=== PATIENT | female | born 1950 | race Caucasian/White ===

== ENCOUNTER → 2018-05-09 06:22 | Outpatient (CLI) | payer MEDICARE, OTHER, SELFPAY ==
[2018-05-03 14:52] VITALS: BMI 31.8
--- NOTE | 2018-05-09 09:08 | STRESSREP ---
Stress Test Report Exercise myocardial perfusion stress test. 67-year-old lady with a history of chest pain. Medications Lipitor fosinopril Synthroid Toprol. Stress protocol: Resting EKG demonstrates normal sinus rhythm with a rate of 93 bpm. Resting blood pressure 132/70 mmHg. The patient exercised according to regular August protocol for total duration of 3 minutes and 30 seconds. The maximum heart rate attained was 150 bpm which was 98% maximum predicted heart rate the maximum workload was 5.2 metabolic equivalents. At rest there were no ST or T wave changes noted suggest ischemia. At peak exercise upsloping ST changes only were noted with normally the criteria for ischemia. The resting blood pressure was 132/70 with a peak blood pressure of 200/70 6 m of mercury. Myocardial perfusion protocol. 11.8 mCi of technetium 99m sestamibi was injected at rest. Patient exercised according to regular August protocol to a workload of 5.2 metastases. At peak exercise 33.3 mCi of technetium 99m sestamibi was injected stress images were obtained stress and rest images were reconstructed and compared in the short axis vertical and horizontal long axis. Gated images were also obtained next Perfusion SPECT analysis: Review of the stress images demonstrate normal uptake of tracer noted in all areas of myocardium. The resting images similarly demonstrate normal uptake of tracer noted in all areas of the myocardium. No areas of reversibility are noted suggest ischemia. Gated SPECT analysis: The gated ejection fraction is noted to be 74%. Conclusion: Normal exercise myocardial perfusion stress test at a low to moderate workload. Preserved ejection fraction.
== END ==
PROVIDERS: Family Provider Nurse Practitioner Family; PCP Nurse Practitioner Family; Referring Provider Physician Assistant Medical; Visit Provider Physician Assistant Medical
DX: I10 Essential (primary) hypertension (principal); E78.5 Hyperlipidemia, unspecified; I47.1 Supraventricular tachycardia; R07.9 Chest pain, unspecified
CPT/HCPCS: 78452; 93017; A9500; A4216

== ENCOUNTER 2018-10-05 20:10 | Inpatient (IN) | payer MEDICARE, OTHER, SELFPAY ==
[2018-06-21 14:11] VITALS: BMI 31.8
[2018-10-05 20:12] VITALS: BP 121/69; PULSE 102; RESP 18; TEMP 36.4; O2SAT 93; BMI 30.9
--- NOTE | 2018-10-05 20:56 | CT_ITS ---
STUDY: CT ABDOMEN AND PELVIS WITHOUT CONTRAST REASON FOR EXAM: Female, 68 years old. Upper quadrant pain radiating to the back and nausea. RADIATION DOSAGE (If Supplied By Facility): CTDIvol = ( 17.88 ) mGy, DLP = ( 821.85 ) mGycm TECHNIQUE: Transaxial images were obtained from the dome of the diaphragm to the symphysis pubis without oral contrast, and without intravenous contrast. Sagittal and coronal images were reconstructed. Individualized dose optimization techniques were used for this CT. COMPARISON: Prior abdomen and pelvic CT exam of November 27, 2016 FINDINGS: The visualized lung bases are unremarkable. The visualized portions of the heart are within normal limits. Normal liver. Normal gallbladder and extrahepatic biliary system. Normal spleen. Normal pancreas. Normal right adrenal gland. Stable 2.0 x 1.5 cm nodule of the left adrenal gland. Normal right kidney. Normal left kidney. Food filled stomach. Dilated mid small bowel with nondistended distal small bowel. The transition point appears to be in the left mid to lower abdomen where multiple dilated loops of bowel are gathered together with an emerging nondistended distal small bowel loop along its lower edge. The colon is nondistended. There is non-visualization of the appendix. There is diffuse atherosclerotic calcification of the abdominal aorta, without a demonstrated aneurysm. Normal inferior vena cava. Normal retroperitoneum. Normal urinary bladder. Negative for pelvic mass or free fluid of the pelvis. Small fatty umbilical hernia. There are diffuse degenerative changes of the visualized lumbar spine with a chronic bilateral pars interarticularis defect and a grade [address]/Abdomen/Pelvis without Cont IMPRESSION: Findings suggest a mid small bowel obstruction in the left mid abdomen where multiple dilated loops are gathered together with an emerging nondistended distal small bowel loop representing the transition zone. Most likely secondary to adhesions. Negative for evidence of gross wall thickening, perforation or ascites. Negative for intra-abdominal abscess. Unremarkable colon. Nonvisualized appendix. Normal kidneys bilaterally without hydronephrosis or stones. Unremarkable urinary bladder. Unremarkable liver, spleen, pancreas and gallbladder. Stable left adrenal nodule. Minimal fatty umbilical hernia. Degenerative changes of the spine with a chronic bilateral pars interarticularis defect and a grade 1 spondylolisthesis at L5. N.B. : Akiko Abdullahi/[phone], confirmed on 10/05/2018 21:50:47 (ET) that the referring physician received the results and does not require a verbal communication. Electronically Signed: Brynn Scott MD at 21:50 EDT , Service support ,
--- NOTE | 2018-10-05 20:56 | EKG12_ITS ---
Test Reason : ABDOMINAL PAIN Blood Pressure : / mmHG Vent. Rate : 092 BPM Atrial Rate : 092 BPM P-R Int : 194 ms QRS Dur : 078 ms QT Int : 368 ms P-R-T Axes : 020 028 030 degrees QTc Int : 455 ms Normal sinus rhythm Septal infarct , age undetermined Abnormal ECG Confirmed by ZACK CAMACHO, GISSELL ([id number]), restaurant expeditor RACHELL ESTEBAN ([id number]) on 10/09/2018 2:18:56 PM Referred By: PATTI Confirmed By:GISSELL DIXON MD
[2018-10-05] MEDS: 0.9% Normal Saline 1,000 ML 150 ML IV (21:18)
[2018-10-05 21:34] LABS: Absolute Lymphocyte Count 1.95 X10^3/ul (0.83-4.51); Basophil# 0.02 X10^3/uL; Basophil% 0.1 % (0-1); Eosinophil# 0.11 X10^3/uL; Eosinophils% 0.6 % (0-5); Hematocrit 44.6 % (37-47); Hemoglobin 14.3 g/dl (12.0-15.0); Lymphocyte # 1.95 X10^3/ul (4.0); Lymphocyte % 11.2 % (19-41); Mean Corp Hgb Conc 32.1 g/gl (32-36); Mean Corpuscular Hgb 26.7 pg (27.0-32.0); Mean Corpuscular Volume 83.4 fL (81-99); Mean Platelet Vol. 9.2 fl (6.2-12.0); Monocyte# 1.29 X10^3/uL; Monocyte% 7.4 % (0-10); Neutrophil # 14.04 X10^3/uL (2.7-7.7); Neutrophil % 80.3 % (47-70); POSITIVE COUNT NO; POSITIVE DIFFERENTIAL NO; POSITIVE MORPHOLOGY NO; Platelet Count 378 K/mm3 (150-450); RBC Distribution Width CV 13.6 % (11.6-14.6); RBC Distribution Width SD 40.8 fl (35.1-43.9); Red Blood Count 5.35 M/mm3 (4.2-5.4); White Blood Count 17.5 K/mm3 (4.4-11.0)
[2018-10-05 21:45] LABS: Color, Urine Yellow (Yellow); Glucose, Dipstick Normal (Normal); Ketone-Dipstick 5 mg/dl (Negative); Leukocyte Esterase-Dipstick 100 /ul (Negative); Nitrite-Dipstick Negative (Negative); Occult Blood-Urine Negative /ul (Negative); Protein-Dipstick 100 mg/dl (Negative); Specific Gravity, Urine 1.025 (1.002-1.030); Urine Clarity Sl. Cloudy (Clear); Urine Urobilinogen 1 mg/dl (Normal)
[2018-10-05 21:52] LABS: Urine Bilirubin Dipstick 1 mg/dL (Negative)
[2018-10-05 21:54] LABS: White Blood Cells 5-10 SEEN /hpf (0-5)
[2018-10-05 21:55] LABS: Bacteria 2+ /hpf (None Seen); Fine Granular Cast- Urine 0-5 SEEN /lpf (0-5); Hyaline Cast 0-5 SEEN /lpf (0-5); Mucous, Urine 4+ /hpf (<or=2+); Red Blood Cells-Urine 0-5 SEEN /hpf (0-5); Squamous Epithelial Cells - UA 5-10 SEEN /hpf (5-10)
[2018-10-05 21:57] LABS: ALB/GLOB Ratio 0.9 RATIO (0.9-2.4); AST(SGOT) 17 U/L (15-37); Alanine Aminotransfer ALT/SGPT 30 U/L (13-56); Albumin, Serum 3.6 g/dL (3.2-5.0); Alkaline Phosphatase 86 U/L (45-117); Anion Gap 8 (5-15); BUN 14 mg/dL (7-18); BUN/Creat Ratio 18.3 RATIO (10-20); Calcium,Total 8.8 mg/dL (8.5-10.1); Chloride 105 mmol/L (98-107); Creatinine, Serum 0.77 mg/dL (0.55-1.02); EST Glomerular Filtration Rate 80 mL/min (>60); Est Glom Filt Rate - Afr Amer 96 mL/min (>60); Estimated Creatinine Clearance 44.54 ml/min; Globulin 3.9 g/dL (2.2-4.2); Glucose 81 mg/dL (74-106); Lipase 63 U/L (73-393); Potassium 3.9 mmol/L (3.5-5.1); Protein, Total 7.5 g/dL (6.4-8.2); Sodium Level 140 mmol/L (136-145)
[2018-10-05 21:59] LABS: Lactic Acid 1.9 mmol/L (0.4-2.0)
--- NOTE | 2018-10-05 22:25 | ED.VISSUMM ---
- ER Visit Summary Date of Service: 10/05/18 Chief Complaint: [Abdominal pain ] History of Present Illness: The patient is a 68 F [resents to the emergency department with abdominal pain started 4 5 hours ago. Patient describes intermittent pain that is last a few seconds at a time. She had nausea but no vomiting. She denies any chest pain or shortness of breath. Patient did have some sweats associated with it. Patient states that she did eat a lot of cabbage last night. Patient states that the pain is tender diffusely across her abdomen and at times feels it into her back. She has had no diarrhea. Is any blood in her stool or black tarry stools. She denies any fevers.] Physical Examination: [HEENT-PERRLA, EOMI. Cranial nerves II through XII grossly intact. TMs clear. Mucous membranes moist. No adenopathy. Cardiovascular-regular rate and rhythm without murmur or ectopy Lungs-clear to auscultation, chest wall stable without crepitus or subcu emphysema Abdomen-normoactive bowel sounds, soft. Patient has diffuse tenderness to palpation. There is no rebound, rigidity, or perineal signs. Extremities-intact ?4, normal range of motion, normal pulses, atraumatic] Test Results: [CBC with differential shows a white count 17.5, hemoglobin 14, hematocrit 45, platelets 378. Chemistries unremarkable. LFTs were normal. Lipase was 63. Urinalysis was unremarkable. Troponin is less than 0.015. EKG obtained on arrival shows sinus rhythm with a ventricular rate of 92 bpm with an old septal infarct noted. CT scan of the abdomen pelvis showed a small bowel obstruction in the mid to left lower abdomen.] Emergency Department Course and Treatment: [Patient given Zofran for nausea. Patient case will be discussed with surgeon on-call and hospitalist evaluate for admission.] Treatment Plan: [Admit] Disposition: [Admit] Impression: [Small bowel obstruction] This note was generated with [email or web address] dictation software. It may contain incorrect words, spelling, and punctuation that were not noted in review of the chart prior to signing ED Disposition - Plan for ED Patient: Referrals: Peggy Reyes, KEYANNAC [Primary Care Provider] -
[2018-10-05] MEDS: Morphine 4 MG/ML Syringe IV (22:50)
[2018-10-05] MEDS: Ondansetron 4 MG/2 ML Vial IV (22:50)
[2018-10-05 22:51] VITALS: BP 155/74; PULSE 95; RESP 18; TEMP 37.2; O2SAT 96
--- NOTE | 2018-10-05 23:09 | PCM.PN.HOSP ---
Patient Problems: Active and Suspected Problems (Last Reviewed 06/21/18 @ 14:22 by Elder Whalen MD) SBO (small bowel obstruction) (Acute) Subjective: Consult for medical management: 68-year-old female with past medical history of paroxysmal atrial tachycardia status post AV node ablation 2008, hypertension, type II DM, aortic stenosis who has episodes of diarrhea alternating with constipation. Patient had constipation for the last 3 days and had diarrhea today. She comes in with sudden abdominal pain that started 5 hours ago. Pain is described as intermittent, in the epigastric and right upper quadrant and radiates sometimes to her back. She denied any fever or chills. No nausea. Pain is severe. She has history of hysterectomy about 20 years ago and has history of bowel obstruction that resolved in the past. Vitals/I&O's: Vital Signs Temp Pulse Resp BP Pulse Ox 98.9 F 95 18 155/74 H 96 10/05/18 22:51 10/05/18 22:51 10/05/18 22:51 10/05/18 22:51 10/05/18 22:51 Oxygen Delivery Method Room Air Weight: 79.3 kg Body Mass Index (BMI) 30.9 Finger Stick Blood Glucose 63 General: Alert, Oriented x3, Cooperative, - - in pain HEENT: Atraumatic, PERRLA, EOMI, Normocephalic Oral: Moist Mucosa Neck: Supple Lungs: Clear to auscultation, Normal air movement Cardiovascular: Regular rate, Regular Rhythm, Normal S1, Normal S2, No murmurs Abdomen: Bowel Sounds Present, Soft, Non-Distended, No Hepato-splenomegaly, Tender - over the upper part of the abdomen, BS present and hyperactive Extremities: No edema Skin: No rashes, No breakdown Musculoskeletal: No Tenderness to Palpation of Joints or Extremities Lymphatic: No Cervical, Supraclavicular, or Inguinal Adenopathy Neurological: Cranial nerves II-XII grossly intact, Neuro grossly intact Psych/Mental Status: Normal Affect, Appropriate Laboratory Results 10/05/18 21:10: WBC 17.5 H, RBC 5.35, Hgb 14.3, Hct 44.6, MCV 83.4, MCH 26.7 L, MCHC 32.1, RDW 13.6, RDW Differential 40.8, Plt Count 378, MPV 9.2, Immature Gran % (Auto) 0.400, Neut % (Auto) 80.3 H, Lymph % (Auto) 11.2 L, [place] % (Auto) 7.4, Eos % (Auto) 0.6, Baso % (Auto) 0.1, Absolute Neuts (auto) 14.0 H, Absolute Lymphs (auto) 1.95, Total Counted Not Reportable 10/05/18 21:10: Sodium 140, Potassium 3.9, Chloride 105, Carbon Dioxide 27.0, Anion Gap 8, BUN 14, Creatinine 0.77, Estim Creat Clear Calc 44.54, Est GFR (MDRD) Af Amer 96, Est GFR (MDRD) Non-Af 80, BUN/Creatinine Ratio 18.3, Glucose 81, Calcium 8.8, Total Bilirubin 0.20, AST 17, ALT 30, Alkaline Phosphatase 86, Troponin I < 0.015, Total Protein 7.5, Albumin 3.6, Globulin 3.9, Albumin/Globulin Ratio 0.9, Lipase 63 L 10/05/18 21:10: Lactic Acid 1.9 10/05/18 21:15: Urine Color Yellow, Urine Clarity Sl. Cloudy, Urine pH 5.0, Ur Specific [place] 1.025, Urine Protein 100 H, Urine Glucose (UA) Normal, Urine Ketones 5 H, Urine Occult Blood Negative, Urine Nitrite Negative, Urine Bilirubin 1 H, Urine Urobilinogen 1 H, Ur Leukocyte Esterase 100 H, Urine RBC 0-5 SEEN, Urine WBC 5-10 SEEN, Ur Squamous Epith Cells 5-10 SEEN, Urine Bacteria 2+, Hyaline Casts 0-5 SEEN, Fine Granular Casts 0-5 SEEN, Urine Mucus 4+ Current Medications Sodium Chloride () 1,000 mls @ 150 mls/hr IV .[id number] JER Last Admin: 10/05/18 21:18 Dose: 150 mls/hr Documented by: Medical Necessity - Tobacco Use Smoking Status: Never smoker Assessment/Plan All Active Problems (Last Reviewed 06/21/18 @ 14:22 by Elder Whalen MD) SBO (small bowel obstruction) (Acute) 1. Abdominal pain, nausea, likely secondary to small bowel obstruction, normal LFTs Patient admitted by general surgery, kept n.p.o., on IV fluids, work-up for possible cholecystitis in the works. 2. Hypertension, on amlodipine and metoprolol, will add holding parameters and add hydralazine as needed 3. Hyperlipidemia, on statin 4. Type II DM, complicated by neuropathy, on insulin, Metformin, gabapentin, home regimen on hold on account of n.p.o. status Will continue with Accu-Cheks every 6 with insulin sliding scale 5. H/o Paroxysmal atrial tachycardia, rate controlled now, continue on metoprolol, keep on telemetry 6. DVT PPx- Heparin SC Code Visit Inpatient E&M: 47793 Init Hosp L3
--- NOTE | 2018-10-05 23:20 | HP.PCM_ITS ---
Problem List (1) SBO (small bowel obstruction) Status: Acute History of Present Illness Date of Admission: 10/05/18 The patient is a 68 year old F who reports a day history of upper abdominal pain and nausea. Patient reports she had a bowel movement this morning. She has had a bowel obstruction in the past which resolved spontaneously. She says the pain is in her epigastric region and right upper quadrant and radiates to the back. She denies any fevers or chills. She says she does not remember passing any flatus in the evening or late afternoon. She has not vomited. 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) Antihyperlipidemic Palpitations (Chronic) History of cardiac radiofrequency ablation (Chronic) RFA @ [facility] March 2008 Hypothyroidism (Chronic) Atrial tachycardia (Chronic) Diabetes mellitus, type II (Chronic) HLD (hyperlipidemia) (Chronic) HTN (hypertension) (Chronic) Medical History: Medical History (Last Reviewed 06/21/18 @ 14:22 by Elder Whalen MD) Paroxysmal atrial tachycardia (Chronic) I47.1 detention use of drug (Chronic) Z79.899 Antihyperlipidemic Palpitations (Chronic) R00.2 Hypothyroidism (Chronic) E03.9 Atrial tachycardia (Chronic) I47.1 Diabetes mellitus, type II (Chronic) E11.9 HLD (hyperlipidemia) (Chronic) E78.5 HTN (hypertension) (Chronic) I10 Chest pain R07.9 Dyspnea on exertion R06.09 SBO (small bowel obstruction) K56.609 Diabetic neuropathy E11.40 Allergies Sulfa (Sulfonamide Antibiotics) Adverse Reaction (Verified 10/05/18 20:11) Upset Stomach Home Medications: Ambulatory Orders Medication Instructions Recorded Atorvastatin Calcium [Lipitor] 20 mg PO QHS 11/26/16 Fosinopril Sodium 20 mg PO DAILY 11/26/16 Gabapentin [Neurontin] 300 mg PO TID 11/26/16 Metoprolol(XL)Succ [Toprol Xl 50 mg PO DAILY 11/26/16 (Beta Andrés)] Amlodipine [Norvasc] 2.5 mg PO DAILY #30 tab 11/29/16 pantoprazole 40 mg tablet,delayed 40 mg PO QDAY 06/20/17 release venlafaxine ER 75 mg 75 mg PO DAILY cap 06/22/17 capsule,extended release 24 hr insulin aspart (U-100) 100 unit/mL 18 unit SC QAC ml 05/03/18 (3 mL) subcutaneous pen insulin detemir (U-100) 100 30 unit SC BID ml 05/03/18 unit/mL (3 mL) subcutaneous pen metformin 1,000 mg tablet 1,000 mg PO BID 05/03/18 Levothyroxine Sodium [Tirosint] 88 mcg PO DAILY 10/05/18 Surgical History: Surgical History (Last Reviewed 06/21/18 @ 14:22 by Elder Whalen MD) History of cardiac radiofrequency ablation (Chronic) Z98.890 RFA @ [facility] March 2008 History of hand surgery Z98.890 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 Denies: Chills, Fever HEENT: Denies: Difficulty Swallowing Cardiovascular: Denies: Chest Pain Respiratory: Denies: Cough, Shortness of Breath Gastrointestinal: Reports: Abdominal Pain, Nausea. Denies: Hematemesis, Hematochezia, Melena, Vomiting Genitourinary: Denies: Retention Musculoskeletal: Denies: Joint Tenderness Skin: Denies: Jaundice Psychiatric: Denies: Anxiety Hematologic/ Lymphatic: Denies: Anemia VTE Information - Inpt Only VTE Present on Admission: No VTE Mechan Device Prophylaxis: SCD's Patient Problems: Active and Suspected Problems (Last Reviewed 06/21/18 @ 14:22 by Elder Whalen MD) SBO (small bowel obstruction) (Acute) - Physical Exam General: Alert, Oriented x3, Cooperative, No apparent distress HEENT: Atraumatic Neck: No JVD Lungs: Normal air movement Cardiovascular: Regular rate, Regular Rhythm Abdomen: Soft, Distended, Tender - Tender in the epigastric region Skin: No rashes Musculoskeletal: No Tenderness to Palpation of Joints or Extremities Neurological: Cranial nerves II-XII grossly intact Psych/Mental Status: Normal Affect Vital Signs Temp Pulse Resp BP Pulse Ox 98.9 F 95 18 155/74 H 96 10/05/18 22:51 10/05/18 22:51 10/05/18 22:51 10/05/18 22:51 10/05/18 22:51 Oxygen Delivery Method Room Air Weight: 174 lb 13.225 oz Body Mass Index (BMI) 30.9 Finger Stick Blood Glucose 63 Laboratory Tests Past 24 Hrs 10/05/18 10/05/18 10/05/18 21:10 21:10 21:10 WBC 17.5 H RBC 5.35 Hgb 14.3 Hct 44.6 MCV 83.4 MCH 26.7 L MCHC 32.1 RDW 13.6 RDW Differential 40.8 Plt Count 378 MPV 9.2 Immature Gran % (Auto) 0.400 Neut % (Auto) 80.3 H Lymph % (Auto) 11.2 L [place] % (Auto) 7.4 Eos % (Auto) 0.6 Baso % (Auto) 0.1 Absolute Neuts (auto) 14.0 H Absolute Lymphs (auto) 1.95 Total Counted Not Reportable Sodium 140 Potassium 3.9 Chloride 105 Carbon Dioxide 27.0 Anion Gap 8 BUN 14 Creatinine 0.77 Estim Creat Clear Calc 44.54 Est GFR (MDRD) Af Amer 96 Est GFR (MDRD) Non-Af 80 BUN/Creatinine Ratio 18.3 Glucose 81 Lactic Acid 1.9 Calcium 8.8 Total Bilirubin 0.20 AST 17 ALT 30 Alkaline Phosphatase 86 Troponin I < 0.015 Total Protein 7.5 Albumin 3.6 Globulin 3.9 Albumin/Globulin Ratio 0.9 Lipase 63 L Urine Color Urine Clarity Urine pH Ur Specific [place] Urine Protein Urine Glucose (UA) Urine Ketones Urine Occult Blood Urine Nitrite Urine Bilirubin Urine Urobilinogen Ur Leukocyte Esterase Urine RBC Urine WBC Ur Squamous Epith Cells Urine Bacteria Hyaline Casts Fine Granular Casts Urine Mucus 10/05/18 21:15 WBC RBC Hgb Hct MCV MCH MCHC RDW RDW Differential Plt Count MPV Immature Gran % (Auto) Neut % (Auto) Lymph % (Auto) [place] % (Auto) Eos % (Auto) Baso % (Auto) Absolute Neuts (auto) Absolute Lymphs (auto) Total Counted Sodium Potassium Chloride Carbon Dioxide Anion Gap BUN Creatinine Estim Creat Clear Calc Est GFR (MDRD) Af Amer Est GFR (MDRD) Non-Af BUN/Creatinine Ratio Glucose Lactic Acid Calcium Total Bilirubin AST ALT Alkaline Phosphatase Troponin I Total Protein Albumin Globulin Albumin/Globulin Ratio Lipase Urine Color Yellow Urine Clarity Sl. Cloudy Urine pH 5.0 Ur Specific [place] 1.025 Urine Protein 100 H Urine Glucose (UA) Normal Urine Ketones 5 H Urine Occult Blood Negative Urine Nitrite Negative Urine Bilirubin 1 H Urine Urobilinogen 1 H Ur Leukocyte Esterase 100 H Urine RBC 0-5 SEEN Urine WBC 5-10 SEEN Ur Squamous Epith Cells 5-10 SEEN Urine Bacteria 2+ Hyaline Casts 0-5 SEEN Fine Granular Casts 0-5 SEEN Urine Mucus 4+ Clinical Impression(s) from Imaging Studies Abdomen/Pelvis CT 10/05/18 20:56 IMPRESSION: Findings suggest a mid small bowel obstruction in the left mid abdomen where multiple dilated loops are gathered together with an emerging nondistended distal small bowel loop representing the transition zone. Most likely secondary to adhesions. Negative for evidence of gross wall thickening, perforation or ascites. Negative for intra-abdominal abscess. Unremarkable colon. Nonvisualized appendix. Normal kidneys bilaterally without hydronephrosis or stones. Unremarkable urinary bladder. Unremarkable liver, spleen, pancreas and gallbladder. Stable left adrenal nodule. Minimal fatty umbilical hernia. Degenerative changes of the spine with a chronic bilateral pars interarticularis defect and a grade 1 spondylolisthesis at L5. N.B. : Akiko Abdullahi/[phone], confirmed on 10/05/2018 21:50:47 (ET) that the referring physician received the results and does not require a verbal communication. Electronically Signed: Brynn Scott MD at 21:50 EDT , Service support , ADDENDUM: 10/05/18 0794 IMPRESSION: Findings suggest a mid small bowel obstruction in the left mid abdomen where multiple dilated loops are gathered together with an emerging nondistended distal small bowel loop representing the transition zone. Most likely secondary to adhesions. Negative for evidence of gross wall thickening, perforation or ascites. Negative for intra-abdominal abscess. Unremarkable colon. Nonvisualized appendix. Normal kidneys bilaterally without hydronephrosis or stones. Unremarkable urinary bladder. Unremarkable liver, spleen, pancreas and gallbladder. Stable left adrenal nodule. Minimal fatty umbilical hernia. Degenerative changes of the spine with a chronic bilateral pars interarticularis defect and a grade 1 spondylolisthesis at L5. N.B. : The above information has been verbally conveyed by Brynn Scott MD to Akiko Abdullahi MD, on 10/05/2018 22:04:02 (ET). Electronically Signed: Brynn Scott MD at 21:50 EDT , Service support , Assessment/Plan All Active Problems (Last Reviewed 06/21/18 @ 14:22 by Elder Whalen MD) SBO (small bowel obstruction) (Acute) 68-year-old female with ileus versus bowel obstruction 1. The patient describes epigastric pain and pain radiating around to the back in the right upper quadrant. On CT scan she does have dilated proximal small bowel but there is definitely stool in the colon and gas in the distal small bowel. It is possible this is an ileus instead of a small bowel obstruction. Her pain is in the right upper quadrant radiating to the back this may be an ileus due to cholecystitis and I will order an ultrasound to check the gallbladder. If the ultrasound the gallbladder is normal and her white count stays elevated I will order a small bowel follow-through in the morning. Currently her abdomen is soft and she has mild tenderness and there is no sign of acute abdomen. 2. I have admitted the patient to the floor and start a sliding scale. I will keep her n.p.o. and on IV fluids. Recheck labs in the morning. Zeyad Zacarias MD Pager: [facility] [address] [place] [address], [address] [place] [address] Office:
[2018-10-05 23:25] VITALS: BP 140/81; PULSE 86; RESP 16; TEMP 37.1; O2SAT 93
[2018-10-05 23:27] VITALS: BMI 30.4; BMI 30.5
[2018-10-06] VITALS (9 sets, daily range): BP systolic 119–140; BP diastolic 50–75; PULSE 79–100; RESP 14–16; TEMP 36.7–36.8; O2SAT 94–96
[2018-10-06] MEDS: 0.9% Normal Saline 1,000 ML 125 ML IV ×3 (00:27→15:31)
[2018-10-06 00:45] LABS: Bedside Glucose 134 mg/dL (70-110)
--- NOTE | 2018-10-06 05:55 | RAD_ITS ---
STUDY: X-RAY - ABDOMEN/PELVIS REASON FOR EXAM: Female, 68 years old. Small bowel obstruction TECHNIQUE: Two AP supine views of the abdomen and pelvis. COMPARISON: None. FINDINGS: Normal visualized lung bases. Multiple mildly dilated small bowel loops are seen throughout the abdomen are stable since the previous study may represent an ileus. There is no demonstrated free abdominal air. The visualized liver, spleen and kidneys are grossly normal in size and morphology. Normal soft tissue structures. Normal visualized osseous structures. RAD/Abdomen Single View (Portable) IMPRESSION: Stable mildly dilated small bowel loops throughout the abdomen may represent an ileus. Electronically Signed: Shana Lin, at 8:14 EDT Tel , Service support ,
[2018-10-06] MEDS: Insulin Lispro 100 UNIT/ML INSULN.PEN SC (06:06)
[2018-10-06] MEDS: Heparin Injection (Vial) 5,000 UNIT/ML VIAL 5000 UNIT SC ×2 (06:07→14:01)
[2018-10-06 07:00] LABS: Bedside Glucose 207 mg/dL (70-110)
[2018-10-06 07:10] LABS: Absolute Neutrophil Count 9.9 X10^3/uL (2.0-7.7); Basophil# 0.03 X10^3/uL; Basophil% 0.2 % (0-1); Eosinophil# 0.23 X10^3/uL; Eosinophils% 1.6 % (0-5); Hematocrit 40.5 % (37-47); Hemoglobin 12.9 g/dl (12.0-15.0); Lymphocyte % 17.7 % (19-41); Mean Corp Hgb Conc 31.9 g/gl (32-36); Mean Corpuscular Hgb 26.2 pg (27.0-32.0); Mean Corpuscular Volume 82.3 fL (81-99); Mean Platelet Vol. 9.6 fl (6.2-12.0); Monocyte# 1.36 X10^3/uL; Monocyte% 9.6 % (0-10); Neutrophil # 9.91 X10^3/uL (2.7-7.7); Neutrophil % 70.4 % (47-70); Platelet Count 354 K/mm3 (150-450); RBC Distribution Width CV 13.8 % (11.6-14.6); RBC Distribution Width SD 40.4 fl (35.1-43.9); Red Blood Count 4.92 M/mm3 (4.2-5.4); White Blood Count 14.1 K/mm3 (4.4-11.0)
[2018-10-06 07:12] LABS: POSITIVE COUNT NO; POSITIVE DIFFERENTIAL NO; POSITIVE MORPHOLOGY NO
[2018-10-06 07:28] LABS: AST(SGOT) 15 U/L (15-37); Alanine Aminotransfer ALT/SGPT 28 U/L (13-56); Albumin, Serum 3.1 g/dL (3.2-5.0); Alkaline Phosphatase 73 U/L (45-117); Anion Gap 7 (5-15); BUN 13 mg/dL (7-18); BUN/Creat Ratio 19.2 RATIO (10-20); Calcium,Total 8.1 mg/dL (8.5-10.1); Chloride 106 mmol/L (98-107); Creatinine, Serum 0.68 mg/dL (0.55-1.02); EST Glomerular Filtration Rate 92 mL/min (>60); Est Glom Filt Rate - Afr Amer 111 mL/min (>60); Estimated Creatinine Clearance 44.54 ml/min; Globulin 3.1 g/dL (2.2-4.2); Glucose 213 mg/dL (74-106); Magnesium 1.6 mg/dL (1.6-2.6); Phosphorus 3.9 mg/dL (2.5-4.9); Potassium 4.1 mmol/L (3.5-5.1); Protein, Total 6.2 g/dL (6.4-8.2); Sodium Level 139 mmol/L (136-145)
--- NOTE | 2018-10-06 07:43 | US_ITS ---
STUDY: ABDOMINAL ULTRASOUND - RIGHT UPPER QUADRANT REASON FOR VISIT: Female, 68 years old. Right upper quadrant pain. TECHNIQUE: Ultrasound evaluation of the right upper quadrant was performed with real-time and static mc-scale imaging. TECHNICAL QUALITY: Adequate. COMPARISON: None. FINDINGS: Liver: The liver measures 17 cm. There is increased echogenicity consistent with fatty infiltration. The bile ducts are within normal limits. There is hepatic color flow. The direction of portal flow is hepatopetal. There is no demonstrated mass lesion. Gallbladder: Normal distended gallbladder. The gallbladder wall measures 2.8 mm. There is a negative sonographic King's sign. There is no pericholecystic fluid. There are no gallstones. Common Bile Duct (C.B.D.): The common bile duct measures 4.5 mm. Pancreas: The pancreas is suboptimally visualized. There is normal echogenicity of the pancreas. There is no demonstrated pancreatic mass or cyst. Right Kidney: Normal size of the right kidney. The right kidney measures 10.4 x 5.9 x 5.1 cm. Normal renal cortex. The right cortex measures 1.5 cm. There is no demonstrated renal mass or cyst. There is no right hydronephrosis. US/Gallbladder IMPRESSION: 1. Fatty infiltration of the liver. 2. No evidence of gallstones. Electronically Signed: Femi Carter MD at 8:54 EDT Tel , Service support ,
--- NOTE | 2018-10-06 07:53 | NURSING ---
pt transported to ultrasound via bed at this time
--- NOTE | 2018-10-06 08:34 | PN.SURG_ITS ---
Patient Problems: Active and Suspected Problems (Last Reviewed 06/21/18 @ 14:22 by Elder Whalen MD) SBO (small bowel obstruction) (Acute) Subjective: The patient reports that her abdominal pain is much improved this morning. She also had a bowel movement and she said she is passing flatus this morning. She is not having any nausea or vomiting this morning. - Physical Exam General: Alert, Oriented x3 Neck: No JVD Lungs: Normal air movement Cardiovascular: Regular rate Abdomen: Soft, Non Tender Vital Signs Temp Pulse Resp BP Pulse Ox 98.2 F 89 16 135/75 H 94 10/06/18 05:52 10/06/18 05:52 10/06/18 05:52 10/06/18 05:52 10/06/18 05:52 Oxygen Delivery Method Room Air Weight: 172 lb 2.896 oz Body Mass Index (BMI) 30.4 Finger Stick Blood Glucose 63 Intake and Output for Last 24 Hours 10/04/18 10/05/18 10/06/18 23:59 23:59 23:59 Intake Total 862 / 862 Output Total 200 / 200 Balance 662 / 662 Laboratory Tests Past 24 Hrs 10/05/18 10/05/18 10/05/18 21:10 21:10 21:10 WBC 17.5 H RBC 5.35 Hgb 14.3 Hct 44.6 MCV 83.4 MCH 26.7 L MCHC 32.1 RDW 13.6 RDW Differential 40.8 Plt Count 378 MPV 9.2 Immature Gran % (Auto) 0.400 Neut % (Auto) 80.3 H Lymph % (Auto) 11.2 L Pierce % (Auto) 7.4 Eos % (Auto) 0.6 Baso % (Auto) 0.1 Absolute Neuts (auto) 14.0 H Absolute Lymphs (auto) 1.95 Total Counted Not Reportable Sodium 140 Potassium 3.9 Chloride 105 Carbon Dioxide 27.0 Anion Gap 8 BUN 14 Creatinine 0.77 Estim Creat Clear Calc 44.54 Est GFR (MDRD) Af Amer 96 Est GFR (MDRD) Non-Af 80 BUN/Creatinine Ratio 18.3 Glucose 81 Lactic Acid 1.9 Calcium 8.8 Phosphorus Magnesium Total Bilirubin 0.20 AST 17 ALT 30 Alkaline Phosphatase 86 Troponin I < 0.015 Total Protein 7.5 Albumin 3.6 Globulin 3.9 Albumin/Globulin Ratio 0.9 Lipase 63 L Urine Color Urine Clarity Urine pH Ur Specific [place] Urine Protein Urine Glucose (UA) Urine Ketones Urine Occult Blood Urine Nitrite Urine Bilirubin Urine Urobilinogen Ur Leukocyte Esterase Urine RBC Urine WBC Ur Squamous Epith Cells Urine Bacteria Hyaline Casts Fine Granular Casts Urine Mucus 10/05/18 10/06/18 10/06/18 21:15 06:20 06:20 WBC 14.1 H RBC 4.92 Hgb 12.9 Hct 40.5 MCV 82.3 MCH 26.2 L MCHC 31.9 L RDW 13.8 RDW Differential 40.4 Plt Count 354 MPV 9.6 Immature Gran % (Auto) 0.500 Neut % (Auto) 70.4 H Lymph % (Auto) 17.7 L Pierce % (Auto) 9.6 Eos % (Auto) 1.6 Baso % (Auto) 0.2 Absolute Neuts (auto) 9.9 H Absolute Lymphs (auto) 2.50 Total Counted Not Reportable Sodium 139 Potassium 4.1 Chloride 106 Carbon Dioxide 26.0 Anion Gap 7 BUN 13 Creatinine 0.68 Estim Creat Clear Calc 44.54 Est GFR (MDRD) Af Amer 111 Est GFR (MDRD) Non-Af 92 BUN/Creatinine Ratio 19.2 Glucose 213 H Lactic Acid Calcium 8.1 L Phosphorus 3.9 Magnesium 1.6 Total Bilirubin 0.40 AST 15 ALT 28 Alkaline Phosphatase 73 Troponin I Total Protein 6.2 L Albumin 3.1 L Globulin 3.1 Albumin/Globulin Ratio 1.0 Lipase Urine Color Yellow Urine Clarity Sl. Cloudy Urine pH 5.0 Ur Specific [place] 1.025 Urine Protein 100 H Urine Glucose (UA) Normal Urine Ketones 5 H Urine Occult Blood Negative Urine Nitrite Negative Urine Bilirubin 1 H Urine Urobilinogen 1 H Ur Leukocyte Esterase 100 H Urine RBC 0-5 SEEN Urine WBC 5-10 SEEN Ur Squamous Epith Cells 5-10 SEEN Urine Bacteria 2+ Hyaline Casts 0-5 SEEN Fine Granular Casts 0-5 SEEN Urine Mucus 4+ POC Glucose 10/06/18 10/06/18 05:59 00:36 POC Glucose 207 H 134 H Medical Necessity - Tobacco Use Smoking Status: Never smoker Assessment/Plan All Active Problems (Last Reviewed 06/21/18 @ 14:22 by Elder Whalen MD) SBO (small bowel obstruction) (Acute) 68-year-old female with ileus versus partial small bowel obstruction 1. Patient's white blood cell count decreased this morning despite not being on antibiotics. She is also feeling much better and having no abdominal pain or nausea or vomiting and she is passing flatus. I am getting an ultrasound of the gallbladder to make sure that she does not have acute cholecystitis and if this is negative she will be started on clear liquid diet. I will put her back on her normal insulin regimen for her diabetes. 2. Patient's diet may be advanced as tolerated and if she is tolerating a diet I may discharge her home tomorrow. Zeyad Zacarias MD Pager: [facility] [address] [place] [address], [address] [place] [address] Office:
[2018-10-06] MEDS: Metoprolol(XL)Succ 50 MG Tablet PO (09:38)
[2018-10-06] MEDS: amLODIPine 2.5 MG Tablet PO (09:38)
[2018-10-06] MEDS: Venlafaxine XR 75 MG Capsule PO (09:38)
[2018-10-06] MEDS: Pantoprazole Sodium 40 MG Tablet PO (09:40)
--- NOTE | 2018-10-06 11:12 | CM.UR ---
Alerted Dr. Bhat to UA findings during rounding. Quinn Eugene RN, CCM.
[2018-10-06] MEDS: Insulin Lispro 100 UNIT/ML INSULN.PEN 18 UNIT SC ×2 (11:57→17:44)
[2018-10-06 12:16] LABS: Bedside Glucose 190 mg/dL (70-110)
--- NOTE | 2018-10-06 13:01 | CM.UR ---
RN CM Assessment Introduced role of RN CM to patient.? Patient is alert and able?to participate in RN CM Assessment. ?Care providers, pharmacy, and demographics verified. arrived part way through [facility]. Presentation: abd pain Admit Dx: SBO Re-Admit: No Barriers/Issues: None PCP: KAYLEY Reyes at [facility] Preferred Pharmacy: [facility] Insurance: [employer], [employer]. Rx Benefit: Yes. No trouble pay for meds. LNOK: , Omar Acuña LW/HPOA: None. Accepted booklet. Declines additional information at this time/visit from . Living Arrangements:? Lives in 2 story home. Denies access issues. ADL?s: Independent with all ADLS. Transportation: Drives self or retired will drive. DME: None DME co: None HHC: None SNF: None Goal: Home. DC PLAN: Home no needs anticipated. Quinn Eugene RN, CCM.
[2018-10-06] MEDS: Gabapentin 300 MG Capsule PO (14:02)
--- NOTE | 2018-10-06 15:59 | PN_ITS ---
Patient Problems: Active and Suspected Problems (Last Reviewed 06/21/18 @ 14:22 by Elder Whalen MD) SBO (small bowel obstruction) (Acute) Subjective: Patient was seen and examined today, she does complain of some nausea, her blood sugar this morning was 213. I talked briefly with Dr. Zacarias about her care. - Physical Exam General: Alert, Oriented x3, Cooperative, No apparent distress, Well developed HEENT: Atraumatic, PERRLA, EOMI, Normocephalic Oral: Moist Mucosa Neck: Supple, Trachea Midline, Thyroid Normal Size and Texture Lungs: Clear to auscultation, Normal air movement, No rhonchi, No wheeze, No rales, Diminished, Rales Cardiovascular: Regular rate, Regular Rhythm, Normal S1, Normal S2, No murmurs, No Ectopic Activity, PMI Normal, No rub noted, No Gallop Abdomen: Bowel Sounds Present, Soft, Non Tender, Non-Distended, No hernias noted Extremities: No clubbing, No cyanosis, No edema, Capillary Refill Less than 3 Seconds Skin: No rashes, No breakdown Musculoskeletal: No Tenderness to Palpation of Joints or Extremities Neurological: Cranial nerves II-XII grossly intact, Neuro grossly intact, Sensory exam intact to light touch and pain, Coordination normal Psych/Mental Status: Normal Affect, Appropriate, Alert and oriented to time, place, person, mood and affect Vital Signs Temp Pulse Resp BP Pulse Ox 98.1 F 89 16 132/63 H 95 10/06/18 15:30 10/06/18 15:30 10/06/18 15:30 10/06/18 15:30 10/06/18 15:30 Oxygen Delivery Method Room Air Weight: 78.1 kg Body Mass Index (BMI) 30.4 Finger Stick Blood Glucose 63 Intake and Output for Last 24 Hours 10/04/18 10/05/18 10/06/18 23:59 23:59 23:59 Intake Total 1485 / 1485 Output Total 300 / 300 Balance 1185 / 1185 Laboratory Tests Past 24 Hrs 10/05/18 10/05/18 10/05/18 21:10 21:10 21:10 WBC 17.5 H RBC 5.35 Hgb 14.3 Hct 44.6 MCV 83.4 MCH 26.7 L MCHC 32.1 RDW 13.6 RDW Differential 40.8 Plt Count 378 MPV 9.2 Immature Gran % (Auto) 0.400 Neut % (Auto) 80.3 H Lymph % (Auto) 11.2 L [place] % (Auto) 7.4 Eos % (Auto) 0.6 Baso % (Auto) 0.1 Absolute Neuts (auto) 14.0 H Absolute Lymphs (auto) 1.95 Total Counted Not Reportable Sodium 140 Potassium 3.9 Chloride 105 Carbon Dioxide 27.0 Anion Gap 8 BUN 14 Creatinine 0.77 Estim Creat Clear Calc 44.54 Est GFR (MDRD) Af Amer 96 Est GFR (MDRD) Non-Af 80 BUN/Creatinine Ratio 18.3 Glucose 81 Lactic Acid 1.9 Calcium 8.8 Phosphorus Magnesium Total Bilirubin 0.20 AST 17 ALT 30 Alkaline Phosphatase 86 Troponin I < 0.015 Total Protein 7.5 Albumin 3.6 Globulin 3.9 Albumin/Globulin Ratio 0.9 Lipase 63 L Urine Color Urine Clarity Urine pH Ur Specific [place] Urine Protein Urine Glucose (UA) Urine Ketones Urine Occult Blood Urine Nitrite Urine Bilirubin Urine Urobilinogen Ur Leukocyte Esterase Urine RBC Urine WBC Ur Squamous Epith Cells Urine Bacteria Hyaline Casts Fine Granular Casts Urine Mucus 10/05/18 10/06/18 10/06/18 21:15 06:20 06:20 WBC 14.1 H RBC 4.92 Hgb 12.9 Hct 40.5 MCV 82.3 MCH 26.2 L MCHC 31.9 L RDW 13.8 RDW Differential 40.4 Plt Count 354 MPV 9.6 Immature Gran % (Auto) 0.500 Neut % (Auto) 70.4 H Lymph % (Auto) 17.7 L [place] % (Auto) 9.6 Eos % (Auto) 1.6 Baso % (Auto) 0.2 Absolute Neuts (auto) 9.9 H Absolute Lymphs (auto) 2.50 Total Counted Not Reportable Sodium 139 Potassium 4.1 Chloride 106 Carbon Dioxide 26.0 Anion Gap 7 BUN 13 Creatinine 0.68 Estim Creat Clear Calc 44.54 Est GFR (MDRD) Af Amer 111 Est GFR (MDRD) Non-Af 92 BUN/Creatinine Ratio 19.2 Glucose 213 H Lactic Acid Calcium 8.1 L Phosphorus 3.9 Magnesium 1.6 Total Bilirubin 0.40 AST 15 ALT 28 Alkaline Phosphatase 73 Troponin I Total Protein 6.2 L Albumin 3.1 L Globulin 3.1 Albumin/Globulin Ratio 1.0 Lipase Urine Color Yellow Urine Clarity Sl. Cloudy Urine pH 5.0 Ur Specific Rebecca 1.025 Urine Protein 100 H Urine Glucose (UA) Normal Urine Ketones 5 H Urine Occult Blood Negative Urine Nitrite Negative Urine Bilirubin 1 H Urine Urobilinogen 1 H Ur Leukocyte Esterase 100 H Urine RBC 0-5 SEEN Urine WBC 5-10 SEEN Ur Squamous Epith Cells 5-10 SEEN Urine Bacteria 2+ Hyaline Casts 0-5 SEEN Fine Granular Casts 0-5 SEEN Urine Mucus 4+ POC Glucose 10/06/18 10/06/18 10/06/18 11:55 05:59 00:36 POC Glucose 190 H 207 H 134 H Medical Necessity - Tobacco Use Smoking Status: Never smoker Assessment/Plan All Active Problems (Last Reviewed 06/21/18 @ 14:22 by Elder Whalen MD) SBO (small bowel obstruction) (Acute) #1 type 2 diabetes-continue Accu-Cheks with sliding scale insulin, patient is back on her home insulin regimen. #2 hypertension-patient is currently taking oral medications #3 hyperlipidemia #4 partial small bowel obstruction-resolving Ultrasound of the gallbladder revealed no stones today Code Visit Inpatient E&M: 87002 Subs Hosp L2
[2018-10-06 17:25] LABS: Bedside Glucose 265 mg/dL (70-110)
--- NOTE | 2018-10-06 17:27 | PCM.PN.BLA ---
Progress Note Patient having no abdominal pain and she is passing flatus and had another BM. Patient requesting to go home. she is tolerating regular diet with no nausea or vomitting. OK to discharge, follow back up if any issues. Zeyad Zacarias
--- NOTE | 2018-10-06 17:28 | DCINST_ITS ---
- Discharge Diagnoses Current Active Problems: Current Active and Chronic Problems (Last Reviewed 06/21/18 @ 14:22 by Elder Whalen MD) SBO (small bowel obstruction) (Acute) You will use the following diet at home:: Regular Your food should be the consistency of: Regular Your liquids should be the consistency of: Regular/Thin Discharge Activity: Return to Normal Activity Call your doctor if your incision/area has: Increased Pain/ Swelling Call your doctor if you observe: Fever of 101 or Higher, Inability to have a bowel movement, Uncontrolled pain Allergies/Adverse Reactions: Allergies Sulfa (Sulfonamide Antibiotics) Adverse Reaction (Verified 10/05/18 20:11) Upset Stomach Medications to take at Discharge Atorvastatin Calcium [Lipitor] 20 mg PO QHS 11/26/16 Fosinopril Sodium 20 mg PO DAILY 11/26/16 Gabapentin [Neurontin] 300 mg PO TID 11/26/16 Metoprolol(XL)Succ [Toprol Xl (Beta Andrés)] 50 mg PO DAILY 11/26/16 Amlodipine [Norvasc] 2.5 mg PO DAILY #30 tab 11/29/16 pantoprazole 40 mg tablet,delayed release 40 mg PO QDAY 06/20/17 venlafaxine ER 75 mg capsule,extended release 24 hr 150 mg PO DAILY cap 06/22/17 insulin aspart (U-100) 100 unit/mL (3 mL) subcutaneous pen 18 unit SC QAC ml 05/03/18 insulin detemir (U-100) 100 unit/mL (3 mL) subcutaneous pen 30 unit SC BID ml 05/03/18 metformin 1,000 mg tablet 1,000 mg PO BID 05/03/18 Levothyroxine Sodium [Tirosint] 88 mcg PO DAILY 10/05/18 Primary Care Physician: Peggy Reyes NP-C [Primary Care Provider] - Test Results: Test results from this visit will be discussed in further detail at your follow- up appointment, if applicable. Please Follow Up With: Zeyad Zacarias MD When: as needed
== END 2018-10-06 18:58 | disposition home or self-care (01) | DRG 389 ==
LOC: ED 21:12 → MS3 23:03
PROVIDERS: Admitting Provider Surgery; Emergency Provider Emergency Medicine; Family Provider Nurse Practitioner Family; PCP Nurse Practitioner Family; Visit Provider Internal Medicine
DX: K56.600 Partial intestinal obstruction, unspecified as to cause (principal); I47.1 Supraventricular tachycardia; I10 Essential (primary) hypertension; E78.5 Hyperlipidemia, unspecified; E11.40 Type 2 diabetes mellitus with diabetic neuropathy, unspecified; Z90.710 Acquired absence of both cervix and uterus; Z79.4 Long term (current) use of insulin
CPT/HCPCS: 36415; 74018; 74176; 76705; 80053; 81001; 82962; 83605; 83690; 83735; 84100; 84484; 85025; 93005; 97802; 99285; J7030; A4216; J2405

== ENCOUNTER 2020-02-10 08:29 | Day surgery (SDC) | payer MEDICARE, OTHER, SELFPAY ==
[2020-01-30 14:51] VITALS: BMI 33.1
[2020-01-31 13:04] LABS: Absolute Lymphocyte Count 3.08 X10^3/uL (0.83-4.51); Basophil# 0.05 X10^3/uL; Basophil% 0.5 % (0-1); Eosinophil# 0.27 X10^3/uL; Eosinophils% 2.6 % (0-5); Hematocrit 44.9 % (37-47); Hemoglobin 13.8 g/dL (12.0-15.0); Lymphocyte # 3.08 X10^3/ul (4.0); Lymphocyte % 29.8 % (19-41); Mean Corp Hgb Conc 30.7 g/dL (32-36); Mean Corpuscular Hgb 26.6 pg (27.0-32.0); Mean Corpuscular Volume 86.5 fL (81-99); Mean Platelet Vol. 9.8 fl (6.2-12.0); Monocyte# 0.81 X10^3/uL; Monocyte% 7.8 % (0-10); NRBC Flagged by Analyzer 0 % (0-5); Neutrophil # 6.04 X10^3/uL (2.7-7.7); Neutrophil % 58.6 % (47-70); Platelet Count 365 K/mm3 (150-450); RBC Distribution Width SD 44.1 fl (35.1-43.9); Red Blood Count 5.19 M/mm3 (4.2-5.4); White Blood Count 10.3 K/mm3 (4.4-11.0)
[2020-01-31 13:16] LABS: Anion Gap 6 (5-15); BUN 13 mg/dL (7-18); BUN/Creat Ratio 19.7 RATIO (10-20); Chloride 105 mmol/L (98-107); Creatinine, Serum 0.66 mg/dL (0.55-1.02); EST Glomerular Filtration Rate 94 mL/min (>60); Est Glom Filt Rate - Afr Amer 114 mL/min (>60); Glucose 274 mg/dL (74-106); Potassium 4.5 mmol/L (3.5-5.1); Sodium Level 138 mmol/L (136-145)
--- NOTE | 2020-01-31 14:50 | RAD_ITS ---
STUDY: X-RAY CHEST REASON FOR EXAM: Female, 69 years old. BEFORE HEART CATH -- HISTORY OF HYPERTENSION TECHNIQUE: PA and lateral views of the chest. COMPARISON: None. FINDINGS: The lungs are clear and expanded. There is no demonstrated pleural abnormality. Normal size heart. Normal mediastinum and yasmin. Normal visualized pulmonary arteries. Normal visualized aortic arch and descending thoracic aorta. Normal visualized thoracic spine. Normal visualized ribs, clavicles, and shoulders. There is no demonstrated abnormality of the visualized soft tissue structures of the upper abdomen. RAD/Chest PA and Lateral IMPRESSION: Normal x-ray examination of the chest. Electronically Signed: Omar Brady MD at 12:27 EST Tel , Service support ,
[2020-02-01 12:15] VITALS: BMI 31.6
[2020-02-07 08:14] VITALS: BMI 33.1
--- NOTE | 2020-02-10 07:35 | HP_ITS ---
[facility] HPI History of Present Illness Details: JOSIANE OSULLIVAN, is a 69 F who presents to the office today for a follow-up visit. She has a history of paroxysmal atrial tachycardia status post AV ty ablation in 2008. She had a dual AV ty pathway. She has a history of hypertension and diabetes and aortic sclerosis. You do remember she underwent stress testing in April of 2018 because she has been having some chest discomfort. Though she exercised to a low metabolic workload no evidence of ischemia was noted. She tells me that she has had some discomfort in her chest when she gets up and moves after sitting a while. She did undergo an echocardiogram at [facility] the results of which are not immediately available but she was told that her aortic stenosis is getting worse. She has had no dizziness or diaphoresis no near syncope or syncope. She does however have some fatigue. Her blood pressure is elevated. Physical exam demonstrates clear lung duncan regular rate and rhythm 2/6 systolic murmur noted at sternal border no pedal edema. Intake Vital Signs 01/30/20 Height 5 ft 3 in 01/30/20 Weight: 187 lb 01/30/20 BMI 33.1 01/30/20 BP 161/75 H 01/30/20 Respiration 18 01/30/20 Pulse 100 01/30/20 Pulse Oximetry (%) 94 Intake Visit Reasons: 1 year f/u COVID Resched Allergies Sulfa (Sulfonamide Antibiotics) Adverse Reaction (Verified 01/30/20 14:51) Upset Stomach Medications Gabapentin [Neurontin] 300 mg PO TID 11/26/16 [History Confirmed 01/30/20] venlafaxine 75 mg capsule,extended release 24 hr 150 mg PO DAILY cap 06/22/17 [History Confirmed 01/30/20] fosinopril 20 mg tablet 20 mg PO DAILY #10 tab 09/03/19 [Rx Confirmed 01/30/20] insulin aspart U-100 100 unit/mL (3 mL) subcutaneous pen 25 unit SC QAC ml 09/03/19 [History Confirmed 01/30/20] insulin detemir U-100 100 unit/mL (3 mL) subcutaneous pen 50 unit SC DAILY ml 09/03/19 [History Confirmed 01/30/20] metoprolol succinate 50 mg tablet,extended release 24 hr 50 mg PO DAILY #10 tab 09/03/19 [Rx Confirmed 01/30/20] amlodipine 5 mg tablet 5 mg PO DAILY #90 tab 01/30/20 [Rx Confirmed 01/30/20] atorvastatin 40 mg tablet 40 mg PO QHS tab 01/30/20 [History Confirmed 01/30/20] levothyroxine 88 mcg tablet 88 mcg PO DAILY tab 01/30/20 [History Confirmed 01/30/20] Ejection fraction %: 65 to 70 PFSH Medical History Nonrheumatic aortic (valve) stenosis (Chronic) Paroxysmal atrial tachycardia (Chronic) Essential (primary) hypertension (Chronic) HLD (hyperlipidemia) (Chronic) Diabetes mellitus, type II (Chronic) Diabetic neuropathy (Chronic) Hypothyroidism (Chronic) Chest pain (Resolved) Dyspnea on exertion (Resolved) SBO (small bowel obstruction) (Resolved) Surgical History History of cardiac radiofrequency ablation (Chronic 03/2008) History of hand surgery (Resolved) History of total hysterectomy (Resolved) Family History Mother Diabetes Father Diabetes Social History (Updated 01/30/20 @ 15:[address] Elder Whalen MD) Smoking Status: Never smoker how long ago did patient quit smokin years alcohol intake: never details: rare caffeine: No ROS Const Const: Negative for fatigue, weakness, headache(s), frequent falls, difficulty sleeping or excessive sweating Eyes Eyes: Negative for loss of peripheral vision, transient loss of vision, blurry vision, double vision or tunnel vision ENT ENT: Negative for headache(s), dizziness, Nosebleed/epistaxis or balance problems Cardio Chest Pain: Yes Character: tightness, squeezing Location: mid sternal Duration: minutes Exacerbation: activity Relieving: rest Palpitations: No Edema: None Muscle aches with walking: None Resp Respiratory: Positive for SOB with activity; negative for SOB at rest, SOB orthopnea\SOB lying down, Cough or paroxysmal nocturnal dyspnea GI GI: Negative nausea, vomiting, heartburn or black,tarry stools : Negative for hematuria Musc Musc: Negative for muscle aches/ myalgia, muscle weakness, joint pain or balance problems Skin Skin: Negative non-healing lesions, rash or unusual bruising Neuro Neuro: Negative for dizziness, lightheadedness, near syncope, syncope, orthostatic symptoms, frequent falls, headache(s), weakness, blurry vision, double vision or lack of coordination Kirk Hematologic/Lymphatic: Negative for easy bleeding or easy bruising Endo Endo: Negative for fatigue, excessive sweating or increased thirst/drinking Psych Psych: Negative for anxiety or depression Allergy Allergy/Immunology: Negative for hives, Negative for rash Cardiology Exam Const Appearance: cooperative, healthy appearing, no acute distress, well developed and well groomed Nutritional Appearance: average body habitus and well nourished Orientation: alert, awake and oriented x3 Head Head: normal to inspection, normocephalic and atraumatic Ears: hearing grossly normal bilaterally and external ears normal Nose: external nose normal, nares normal, nasal mucous membranes and turbinates normal, septum normal, no nasal discharge Face and Sinus: face symmetric Mouth: oral mucosae normal, tongue normal, oropharynx normal and moist mucous membranes Teeth and gingiva: dentition normal Throat: posterior oropharynx normal, tonsils normal and uvula midline Eyes General: appearance normal, both eyes and all related structures Eyelids: eyelids normal Conjunctivae: conjunctivae normal Pupils: PERRL, normal by confrontation and accommodation normal EOM: EOM intact bilaterally Neck Neck: normal visual inspection, trachea midline and no JVD JVD: +5 Carotids: normal carotid upstroke and bounding pulses Chest Chest inspection: normal inspection of the chest, symmetric chest movement and normal respiratory effort Auscultation: Bilateral: Clear to Auscultation Cardio Palpation: normal PMI Rate: regular rate Rhythm: regular rhythm Heart sounds: S1 normal, S2 normal and normal, physiologic split S2; negative rub, gallop or murmur Murmur: Grade 2/6, harsh and early systolic GI GI: normal to inspection, soft, no hepatosplenomegaly and bowel sounds present Neuro General: alert, awake, oriented x3, gait normal, moves all extremities and no focal sensory deficit Skin Skin: no rashes or lesions noted Extremities Pulses: Normal: Right Femoral Pulse, Left Femoral Pulse, Right Dorsalis Pedis Pulse, Left Dorsalis Pedis Pulse, Right Posterior Tibial Pulse, Left Posterior Tibial Pulse, Right Radial Pulse, Left Radial Pulse Lower Extremity Edema: None: Bilateral Musculoskel Musculoskeletal: No joint tenderness Psych Psychological: normal affect Assessment & Plan 1. Exertional chest pain R07.9 Plan She does have some exertional chest discomfort etiology of which is not entirely clear. This could be secondary to her worsening aortic valve disease or it could be from [place] coronary disease. Her stress test as you remember was a low metabolic workload. I would not repeat this but I would suggest that we perform a left heart catheterization. The risk benefits alternatives have been explained to her she understands and agrees to proceed. Depending on the findings further recommendations will be made. Orders Orders: 12 Lead EKG performed by [facility] Today Echo Transesophageal ([facility]) Today Basic Metabolic Profile (BMP) Today Chest PA and Lateral Today 2. Nonrheumatic aortic (valve) stenosis I35.0 Plan She does have a history of valvular heart disease with aortic stenosis. She appears to have clinically at least moderate aortic stenosis. My recommendation would be for us to consider a transesophageal echocardiogram to further characterize the aortic valve, obtain the results of the echocardiogram from [facility] and then further recommendations made. Orders Orders: 12 Lead EKG performed by [facility] Today Left Heart Cath/COR/LV Percut Today Echo Transesophageal ([facility]) Today Basic Metabolic Profile (BMP) Today CBC W/Diff, Automated Today 3. Essential (primary) hypertension I10 Plan She does have a history of hypertension. Her blood pressure does not appear to be very well controlled I would suggest that we increase amlodipine to 5 mg a day and continue her other current medications. She will remain on the metoprolol as well as the fosinopril. Thank you for allowing me to participate in the care of your patient. Please don't hesitate to call if any issues arise. 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) Coding Level of Care Code Off vis,est,level 4 Diagnoses Exertional chest pain R07.9 Nonrheumatic aortic (valve) stenosis I35.0 Essential (primary) hypertension I10 Coding Level of Care Code Off vis,est,level 4 Diagnoses Exertional chest pain R07.9 Nonrheumatic aortic (valve) stenosis I35.0 Essential (primary) hypertension I10 Supplemental Info Supplemental Information Labs LDL Cholesterol 127 mg/dL (0-130) 11/28/16 HDL Cholesterol 45 mg/dL (40-) 11/28/16 Triglycerides 136 mg/dL (-199) 11/28/16 VLDL Cholesterol 27 mg/dL (5-40) 11/28/16 Diagnostics Electrocardiogram 10/05/18 Stress Test Nuclear Medicine 05/09/18 Stress Test 05/09/18
--- NOTE | 2020-02-10 10:23 | CL.D_ITS ---
Patient Name: JOSIANE OSULLIVAN Study Date: 02/10/2020 Performing: Elder Whalen MD Ht: 63 inches 160 cm : 1950 Wt: 187.6 lbs 85 kg Age: 69 Gender: female BSA: 1.88 PROCEDURE(S) PERFORMED [id number]/COR/LV CLINICAL PROFILE AND INDICATIONS Indications: Suspected CAD Heart Failure: None Stress/Imaging Stress/Image Study Performed: No CAD Presentations: Symptom unlikely to be ischemic. CONCLUSIONS Non obstructive coronary arteries Aortic Valve Stenosis- Mild RECOMMENDATIONS Medical therapy DESCRIPTION OF PROCEDURE The patient arrived to the procedure lab. The risks and benefits of the procedure as well as a full d escription of our services here and current unavailability of surgical backup were fully explained to the patient and/or their significant other prior to the catheterization. The Timeout was completed, verifying the correct patient and procedure. The patient's procedural site was prepped and draped in the usual fashion. Local anesthetic was given subcutaneously to right radial region with Lidocaine 2% . Using a modified Seldinger technique, arterial access was obtained via the right radial artery, a 6 Fr sheath was inserted. Left Coronary Artery selective angiography was performed in multiple views u sing a 5 Fr. 4.0 [place] catheter. Right Coronary Artery selective angiography was then performed in mu ltiple views using a 5 Fr. JR 5 catheter. Left Ventriculography was performed in FAIR projection using a 5 Fr. Pig[place] catheter. LV to AO pullback pressures were then recorded.The arterial sheath was pulled and a TR Band was applied for hemostasis 12cc air inserted CORONARY ANGIOGRAPHY DOMINANCE: Right Dominant LEFT HEART ASSESSMENT Left Ventricular Ejection Fraction: by LV Gram 60 % Normal LV wall motion Normal Left Ventricular systolic function LEFT MAIN: Very short LEFT ANTERIOR DESCENDING ARTERY: OSTIAL LAD: 40 % Stenosis MID LAD: 50 % Stenosis CIRCUMFLEX ARTERY: Mild luminal irregularities RIGHT CORONARY ARTERY: Mild luminal irregularities VALVE FINDINGS: Aortic Valve Calcification - mild COMPLICATIONS No Complications PROCEDURE MEDICATIONS Versed 1 mg IV Fentanyl 50 mcg IV Oxygen: 2 L/min via nasal cannula SUMMARY OF HEMODYNAMIC DATA Time AIR REST ECG 08:44:05 AO 132/82 (105) SA 09:51:19 LV 163/16, 24 10:10:32 LV 163/20, 24 10:10:38 LV 152/19, 26 10:11:41 LVp 158/17, 24 10:11:46 AOp 146/75 (107) 10:11:51 10:17:52 Signed By Elder Whalen MD On 02/10/2020 10:22:45 Elder Whalen MD
--- OUTSIDE RECORDS SUMMARY | 2020-03-18 05:42 | XMS RPT_ITS | CCD ---
:1950 External Reference #:[id number] [facility] Care Team Providers Name Role Phone Adrienne Unavailable Unavailable Nataly Santana Unavailable Unavailable Samreen Santana Primary Care Provider Samreen SANTANA Admitting Unavailable REBECA BONNER Attending Unavailable Samreen SANTANA Referring Unavailable Samreen SANTANA Primary Care Unavailable Max Unavailable Mervin Garfield Unavailable Unavailable Nataly Santana Unavailable Unavailable Allergies Reported Allergen Reaction(s) Severity Date of Onset Location sulfabenzamide Unknown 03-30-[address] [facility] (4 1013) Translations: [ Unknown] Sulfonamides (Antibiotic) Abdominal pain [facility] (25620 ) Medications Current Medications Medication Name Sig Date Prescriber Location amLODIPine amLODIPine (NORVASC) 01-23-2019 Historical [facility] 2.5 MG tablet Provider Practice (7630 5) Aspirin aspirin 81 mg 03-17-[address] [facility] chewable tablet Chew (49370) and Swallow . 0 03/17/2005 Active atorvastatin atorvastatin 01-23-2019 [facility] Fami ly (LIPITOR) 20 MG Practice (09 955) tablet Fosinopril fosinopril 01-23-2019 [facility] Fami ly (MONOPRIL) 20 MG Practice (4 9701) tablet gabapentin gabapentin 11-29-2018 [facility] Fami ly (NEURONTIN) 300 MG Practice (03219) capsule Insulin, Aspart, NOVOLOG FLEXPEN 01-12-2019 [facility] Human U-100 INSULIN 100 Practice ( 92879) unit/mL (3 mL) InPn NovoLOG FlexPen 100 UNIT/ML [facility] (83176[facility] Subcutaneous Solution Pen-injector INJECT 18 UNIT 3 times daily Quantity: 4 Refills: 3 Max DAVIDSON-Peggy ZALDIVAR Active 5 x 3 ML Pen levothyroxine Levothyroxine Sodium 88 MCG Peggy Amx [facility] Oral Tablet TAKE 1 TABLET (4 0175) DAILY. Quantity: 90 Refills: 3 Peggy Posadas Active levothyroxine 88 mcg cap Take by mouth every [facility] (06861) night at bedtime . 0 Active metFORMIN metFORMIN (GLUCOPHAGE) 1000 MG 01-23-2019 [facility] tablet (23041) Metoprolol TOPROL XL 50 mg 24 hr tablet 01-23-2019 [facility] (96547) Metoprolol Succinate ER 50 MG Oral Peggydaniel Santana [facility] (21963) Tablet Extended Release 24 Hour TAKE 1 TABLET DAILY. Quantity: 90 Refills: 3 Peggy Posadas Active pantoprazole pantoprazole (PROTONIX) 40 MG 08-02-2016 [facility] tablet TAKE 1 TABLET BY MOUTH (54816) ONCE DAILY. 0 08/02/2016 Active Completed/Discontinuned Medications Medication Name Sig Date Prescriber Location Acetaminophen Tylenol Extra [facility] toy Strength 500 MG Oral Practic e (03121) Tablet Refills: 0 Active Calcium Citrate / Calcium + D TABS [facility] Cholecalciferol Refills: 0 Active Practic e (25731) Calcium + D TABS Refills: 0 Active [facility] (17897) Cholecalciferol Vitamin D TABS Refills: 0 Active [facility] (39268) Vitamin D TABS Refills: 0 Active [facility] (11844) DULoxetine DULoxetine HCl - 20 MG 01-10-2019 Peggy Santana [facility] Oral Capsule Delayed Practic e (25210) Release Particles TAKE 1 CAPSULE Daily Quantity: 30 Refills: 5 Peggy Posadas Start : 10-Jan-2019 Active insulin detemir Levemir FlexTouch 100 Peggy Santana [facility] UNIT/ML Subcutaneous Practic e (91489) Solution Pen-injector 50 units daily Refills: 0 Peggy Posadas Active 5 x 3 ML Pen Levemir FlexTouch 100 UNIT/ML Peggy Santana [facility] Subcutaneous Solution Pen-injector (38744) INJECT 30 UNITS IN THE AM AND 30 UNITS IN THE PM SUBCUTANEOUSLY DIRECTED. Quantity: 5 Refills: 3 Max ASSET MANAGER-HEAD OF BIOLOGY, Peggy Active 5 x 3 ML Pen Magnesium Magnesium TABS Refills: 0 Active [facility] (04678) Magnesium TABS Refills: 0 Active [facility] (98066) Multi-Vitamins Oral Tablet Multi-Vitamins Oral Tablet [facility] Refills: 0 Active Practice ( 19471) Multi-Vitamins Oral Tablet Refills: 0 Active [facility] (71388) Problems Active Problems Category Problem Name Status Date Location Cardiac dysrhythmias Paroxysmal supraventricular [facility] (4480 5) Diabetes mellitus with Diabetic neuropathy Active [facility] complications [facility] (4480 5) Diabetes mellitus without Type 2 diabetes mellitus Active [facility] complication Services-[facility] arechiga [place] (4480 5) Disorders of lipid Hyperlipidemia Active Reha b metabolism Services-[facility] arechiga [facility] (4480 5) Esophageal disorders Gastroesophageal reflux Active [facility] disease [facility] are[facility] (4480 5) Essential hypertension Hypertensive disorder Active [facility] arechiga [facility] (4480 5) Mood disorders Depressive disorder Active Campos ab Services-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 Other non-traumatic joint Hip pain Active [facility] disorders [facility] arechiga [facility] (4480 5) Other non-traumatic joint Knee pain [facility] (4480 5) Thyroid disorders Hypothyroidism Active [facility] (17654 ) Past or Other Problems Category Problem Name Status Date Location NEGATED: Highlighted row has Disease Completed [facility] not occurred!Residual codes; [facility] (22500) unclassified Results Result Name Value Range Unit Interpretation Flag Date Location covid 19 results on 2020-02-25 Covid 19 Results Adult POSITIVE COVID-19 Test [place] Normal 02-25-2020 [facility] local Health Department may be in contact, as they are tracking all Center (77190) POSITIVE patients. Limit your contact with others (HOME ISOLATION). You should be home quarantin ed unless your local public health department tells you otherwise. If you do not hear from the public health department, you should remain in quarantine at home until it naik s been at least 10 days since symptoms started AND no fever for at least 24 bárbara rs without fever reducing medicine AND your symptoms are improving. If you are a employee, Employee Health will c ontact you for return to work instructions. As much as possible, stay in a specific room and away from other people in your home. Also, you should use a separate bathroom i f possible. People who do not have a need to be in your home should not visit. Try to stay in places in the home that have good airflow. Allow getting fresh air when possible. It is very important to cover their mout h and nose with a tissue when coughing or sneezing. After coughing or sneezing or cleaning up used t issues, immediately wash your hands with soap and water for at least 20 seconds. If soap and water are not available, clean hands with an a lcohol-based hand private secretary that contains at least 60% alcohol. Remember to clean your hands often. Avoid sharing personal household items s uch as dishes, drinking glasses, cups, eating utensils, towels, or bedding with other people or p ets in your home. After you use these items, they should be washed with soap a nd water. Clean all high-touch surfaces (tabletops, doorknobs, bathroo m fixtures, toilets, phones, keyboards, tablets, and bedside tables) lia day with antibacterial cleaning solutions such as Lysol w ipes, bleach, cleansers, etc. Immediately clean any surfaces that may have you r blood, poop, or body fluids like tears, drool, urine, sw eat, and mucous on them. Use antibacterial cleaning solutions such as Lysol wipes, bleach, cleansers, etc. Wash laundry thoroughly. Immediately remove and wash c lothes or bedding that have blood, poop, or body fluids on them . Read and follow directions on labels of laundry detergent and/or clothing items. If possible, mask whenever you leave your room. Recommendations for those caring for someone with COVID-19 Wash your hands frequently with soap and water for 20 second s or use an alcohol-based hand private secretary that contains at least 60% alco hol. Avoid touching your face Do not permit visitors who do not have an essential ne ed to be in your home. Mask when caring for these individuals. Household members caring for a COVID-19 positive patient mariangel uld consider self-quarantine for 14 days. If symptoms develop , testing for COVID-19 should be considered.. Revised 7.28.20 Electronic Signatures: PSCMSemre PSCMServices (ADMIN) (Signature pending) Authored Last Updated: 25-Feb-2020 09:48 by PSCSteven PSCMSalejandrina s (ADMIN) coronavirus 2019 by pcr on 2020-02-25 CORONAVIRUS 2019,PCR DETECTED Not Detected Abnormal 2019 [facility] (00 000) Comment: Order Comment: COVID NOTIFIE D TO PEGGY SANTANA, 02/25/2020 13:48 Result Comment: . This assay is designed to de tect SARS-CoV-2 based on replication of specific regions of the RNA from the SARS-CoV-2 virus. A Not Detected result does not preclude 2019-nCoV infection since the adequacy of sample collection and/or low viral burden may result in presence of viral nucleic acids below the clinical sensitivity of this test method. Fact sheet for providers: ht tps://www.fda.gov/media/321352/download Fact sheet for patients: htt ps://www.fda.gov/media/118473/download This test has received FDA E mergency Use Authorization [EUA] and has been verified by [facility] ([facility]). This test is only authorized for the d uration of time that circumstances exist to justify the authorization of the emergency use of in vitro diagnostic tests for the detection of SARS-Co V-2 virus and/or diagnosis of COVID-19 infection under section 564(b)(1) of t he Act, 21 U.S.C. 360bbb-3(b)(1), unless the authorization is terminated or revoked sooner. [facility] is certified under CLIA-88 as qualified to perform high co mplexity testing. Testing is performed in the [facility] [place] [address]. COVID NOTIFIED TO PEGGY Ross, 02/25/2020 13:48 Performed By: #### COV19 ### # [facility] [address] [place] [address] coronavirus 2019 by pcr on 2020-02-24 DATE OF SYMPTOM ONSET [id number] Normal 02-24-20 20 [facility] [YYYYMMDD] Center ( 65743) Comment: Order Comment: COVID NOTIFIE D TO PEGGY SANTANA, 02/25/2020 13:48 Performed By: #### COV19 ### # [facility] [address] [place] [address] EMPLOYED IN HEALTHCARE? No Normal 2019 [facility] (94179) Comment: Order Comment: COVID NOTIFIE D TO PEGGY SANTANA, 02/25/2020 13:48 Performed By: #### COV19 ### # [facility] [address] [place] [address] FIRST COVID NASAL SWAB TEST? Yes Normal 1 04-25-2019 [facility] (50919) Comment: Order Comment: COVID NOTIFIE D TO PEGGY SANTANA, 02/25/2020 13:48 Performed By: #### COV19 ### # [facility] [address] [place] [address] HOSPITALIZED (OR PLANNED TO BE No Normal 02-24-2020 [facility] ADMITTED)? (80791) Comment: Order Comment: COVID NOTIFIE D TO PEGGY SANTANA, 02/25/2020 13:48 Performed By: #### COV19 ### # [facility] [address] [place] [address] ICU? No Normal 02-24-2020 [facility] (04068) Comment: Order Comment: COVID NOTIFIE D TO PEGGY SANTANA, 02/25/2020 13:48 Performed By: #### COV19 ### # [facility] [address] [place] [id number] Lab Specimen Source Nasal, Nasopharyngeal Normal 02-24-2020 [facility] (00 000) Comment: Order Comment: COVID NOTIFIE D TO PEGGY SANTANA, 02/25/2020 13:48 Performed By: #### COV19 ### # [facility] [address] [place] [address] ? No Normal 02-24-2020 [facility] (99824) Comment: Order Comment: COVID NOTIFIE D TO PEGGY SANTANA, 02/25/2020 13:48 Performed By: #### COV19 ### # [facility] [address] [place] [address] RESIDENT IN CONGREGATE CARE No Normal [facility] SETTING? (83182) Comment: Order Comment: COVID NOTIFIE D TO PEGGY CHINGITZ, 02/25/2020 13:48 Performed By: #### COV19 ### # [facility] [address] [place] [address] SYMPTOMATIC DEFINED BY CDC? Yes Normal 02-24-2020 [facility] (41282) Comment: Order Comment: COVID NOTIFIE D TO PEGGY CHINGITZ, 02/25/2020 13:48 Performed By: #### COV19 ### # [facility] [address] [place] [address] chart update on Chart Update Message Normal 01-02-2020 Marco lynne (39747) Recorded as Task Date: 12/11/2019 03:00 PM, Created By: Peggy Santana Task Name: Follow Up Assigned To: Peggy Santana Regarding Patient: JOSIANE ACUÑA, Status: Active Comment: Peggy Santana - 11 Dec 2019 3:[address] Martinez, Please review Josiane's ECH O, specifically #3 in the conclusions. Not sure what a CMR is and what followup is needed. Thanks! Nasir Frias - 11 Dec 2019 4:19 PM TASK REPLIED TO: Previously Assigned To Nasir Martinez Certain findings on the echo cardiogram looks like the patient has severe aortic stenosis uncertain findings look like mild aortic stenosis which is drastically different. Hence a tie breaker test like a n Transesophageal echocardiogram or a cardiac MRI is r ecommended. Thank you. Nasir Martinez MD, RPVI, FACC Industrial Health Engineer of Cardiology [facility], [place], [place] Signatures Electronically signed by : Cristo Santana, LETY-HEAD OF BIOLOGY; Jan 02 2020 7:32PM EST (Author) narrative note - outpatient-cps for phoenix vasquez on 2019-12-10 Narrative Note - Narrative Note: Normal 12-09- 020 [facility] for Discipline[facility]inicCPS for [facility] definity Description (45191) Was called to CPS department to give Definity. Started a 2 2g IV in the left forearm. Flushed the IV with normal saline. Then the e cho tech instructed to give 2 ml of Definity. Exam completed and IV flushed with normal saline and d/c. Band aide applied to IV location. Electronic Signatures: Elan Dumont (CYN) (Signed 10-Dec-2019 10:54) Authored: Narrative Note Last Updated: 10-Dec-2019 10:54 by Elan Dumont (CYN) tsh on 2019-11-27 TSH Qn 0.94 0.44 - 3.98 mIU/L Normal 11-27-2019 [facility] (90048) Comment: Result Comment: TSH testing is performed using different testing methodology at [facility] than at other [facility]. Direct res ult comparisons should only be made within the same method. Performed By: #### TSH2 #### [address] [address] lipid panel (coronary risk 2) on 2019-11-27 Cholesterol [Mass/Vol] 191 0 - 199 mg/dL Normal 020 [facility] (13500) Comment: Result Comment: . AGE DESIRABLE BORDERLINE HIG H HIGH 0-19 Y 0 - 169 170 - 199 >/= 200 20-24 Y 0 - 189 190 - 224 >/ = 225 >24 Y 0 - 199 200 - 239 >/= 240 All ranges are based on fa sting samples. Specific therapeutic targets will hailee y based on patient-specific cardiac risk. . Pediatric guidelines referen ce:Pediatrics 2011, 128(S5). Adult guidelines reference: NCEP ATPIII Guidelines, STU 2001, 258:2486-97 . Venipuncture immediately aft er or during the administration of Metamizole may lead to falsely low results. Testing should be performed immediately prior to Metamizole dosing. Performed By: #### LIPID ### # [address] [address] Cholesterol in HDL 46.0 mg/dL Normal 11-27-2019 [facility] [Mass/Vol] (02493) Comment: Result Comment: . AGE VERY LOW LOW NORMAL HIGH 0-19 Y < 35 < 40 40-45 ---- 20-24 Y ---- < 40 >45 ---- >24 Y ---- < 40 40-60 >60 . Performed By: #### LIPID ### # [address] [address] Cholesterol in LDL 113 0 - 99 mg/dL High 11-27-2019 [facility] [Mass/Vol] (68987) Comment: Result Comment: . NEAR BORD AGE DESIRABLE OPTIMAL HIGH H IGH VERY HIGH 0-19 Y 0 - 109 --- 110-129 > /= 130 ---- 20-24 Y 0 - 119 --- 120-159 >/= 160 ---- >24 Y 0 - 99 100-129 130-159 160-189 >/=190 . Performed By: #### LIPID ### # [address] [address] Cholesterol in VLDL 32 0 - 40 mg/dL Normal 11-27-2019 [facility] [Mass/Vol] [employer] (0 0000) Comment: Performed By: #### LIPID ### # [address] [address] Cholesterol.total/Cholesterol in HDL 4.2 Nor mal 11-27-2019 [facility] [Mass ratio] [facility] (51819) Comment: Result Comment: REF VALUES DESIRABLE < 3.4 HIGH RISK > 5.0 Performed By: #### LIPID ### # [address] [address] Triglyceride [Mass/Vol] 159 0 - 149 mg/dL High 2019 [facility] (97586) Comment: Result Comment: . AGE DESIRABLE BORDERLINE HIG H HIGH VERY HIGH 0 D-90 D 19 - 174 ---- ---- ---- 91 D- 9 Y 0 - 74 75 - 99 >/= 100 ---- 10-19 Y 0 - 89 90 - 129 >/= 130 ---- 20-24 Y 0 - 114 115 - 149 >/ = 150 ---- >24 Y 0 - 149 150 - 199 200- 499 >/= 500 . Venipuncture immediately aft er or during the administration of Metamizole may lead to falsely low results. Testing should be performed immediately prior to Metamizole dosing. Performed By: #### LIPID ### # [address] [address] hemoglobin a1c on 2 HbA1c (Bld) [Mass fraction] 9.9 % Normal [facility] (91068) Comment: Result Comment: Diagnosis of Diabetes-Adults Non-Diabetic: < or = 5.6% Increased risk for developin g diabetes: 5.7-6.4% Diagnostic of diabetes: > or = 6.5% . Monitoring of Diabetes Age (y) Therapeutic Goal (%) Adults: >18 <7.0 Pediatrics: 13-18 <7.5 7-12 <8.0 0- 6 7.5-8.5 [place] [employer] n. Diabetes Care 33(S1), Mar 2009. Performed By: #### HBA1E ### # [address] [address] HbA1c (Bld) [Mass fraction] 237 MG/DL Normal [facility] (95796) Comment: Performed By: #### HBA1E ### # [address] [address] comprehensive panel on 2019-11-27 Albumin [Mass/Vol] 3.9 3.4 - 5.0 g/dL Normal 11-27-2019 [facility] (82758) Comment: Performed By: #### CMP #### [address] [address] ALP [Catalytic activity/Vol] 80 33 - 136 U/L Normal 0 11-27-2019 [facility] (00 000) Comment: Performed By: #### CMP #### [address] [address] ALT [Catalytic activity/Vol] 20 7 - 45 U/L Normal 0 11-27-2019 [facility] (00 000) Comment: Result Comment: Patients radha ated with Sulfasalazine may generate falsely decreased results fo r ALT. Performed By: #### CMP #### [address] [address] Anion gap [Moles/Vol] 13 10 - 20 mmol/L Normal 11-27-19 20 [facility] (47130) Comment: Performed By: #### CMP #### [address] [address] AST [Catalytic activity/Vol] 13 9 - 39 U/L Normal 0 11-27-2019 [facility] (00 000) Comment: Performed By: #### CMP #### [address] [address] Bilirubin [Mass/Vol] 0.3 0.0 - 1.2 mg/dL Normal 0 [facility] (07078) Comment: Performed By: #### CMP #### [address] [address] Calcium [Mass/Vol] 8.8 8.6 - 10.3 mg/dL Normal 11-27-2019 [facility] (43469) Comment: Performed By: #### CMP #### [address] [address] Chloride [Moles/Vol] 103 98 - 107 mmol/L Normal 0 [facility] (49797) Comment: Performed By: #### CMP #### [address] [address] Creatinine [Mass/Vol] 0.60 0.50 - 1.05 mg/dL Normal 2019 [facility] (00 000) Comment: Performed By: #### CMP #### [address] [address] GFR- AM. >60 >60 Normal 11-27-2019 [facility] (61417) Comment: Result Comment: CALCULATIONS OF ESTIMATED GFR ARE PERFORMED USING THE MDRD STUDY EQUATIO N FOR THE IDMS-TRACEABLE CREATININE ME THODS. CLIN CHEM 2007;53:766-72 Performed By: #### CMP #### [address] [address] GFR-NON AM. >60 >60 Normal 11-27-2019 [facility] (08272) Comment: Performed By: #### CMP #### [address] [address] Glucose [Mass/Vol] 301 74 - 99 mg/dL High 11-27-2019 [facility] (44747) Comment: Performed By: #### CMP #### [address] [address] HCO3 (Bld) [Moles/Vol] 24 21 - 32 mmol/L Normal 020 [facility] (65856) Comment: Performed By: #### CMP #### [address] [address] Potassium [Moles/Vol] 4.2 3.5 - 5.3 mmol/L Normal 11-27-19 20 [facility] (00 000) Comment: Performed By: #### CMP #### [address] [address] Protein [Mass/Vol] 6.7 6.4 - 8.2 g/dL Normal 11-27-2019 [facility] (85810) Comment: Performed By: #### CMP #### [address] [address] Sodium [Moles/Vol] 136 136 - 145 mmol/L Normal 11-27-2019 [facility] (16687) Comment: Performed By: #### CMP #### [address] [address] Urea nitrogen [Mass/Vol] 15 6 - 23 mg/dL Normal 11-26 [facility] (44561) Comment: Performed By: #### CMP #### [address] [address] cbc on 2019-11-27 Erythrocyte distribution 13.9 11.5 - 14.5 % Normal [facility] (RBC) [Ratio] Health (67886) Comment: Performed By: #### CBC #### [address] [address] Hematocrit (Bld) [Volume 42.9 36.0 - 46.0 % Normal [facility]] Health (00 000) Comment: Performed By: #### CBC #### [address] [address] Hemoglobin (Bld) 13.7 12.0 - 16.0 g/dL Normal 11-27-2019 [facility] [Mass/Vol] Health (0 0000) Comment: Performed By: #### CBC #### [address] [address] MCHC (RBC) [Mass/Vol] 31.9 32.0 - 36.0 g/dL Low 2019 [facility] (24790) Comment: Performed By: #### CBC #### [address] [address] MCV (RBC) [Entitic vol] 85 80 - 100 fL Normal 2019 [facility] (57745) Comment: Performed By: #### CBC #### [address] [address] Platelets (Bld) [#/Vol] 389 150 - 450 x10E9/L Normal 2019 [facility] (00 000) Comment: Performed By: #### CBC #### [address] [address] RBC (Bld) [#/Vol] 5.08 4.00 - 5.20 x10E12/L Normal 11-27-2019 [facility] (00 000) Comment: Performed By: #### CBC #### [address] [address] WBC (Bld) [#/Vol] 8.7 4.4 - 11.3 x10E9/L Normal 11-27-2019 [facility] (36193) Comment: Performed By: #### CBC #### [address] [address] [facility] surgical pathology department on 2019-09-17 [facility] Surgical Name JONATHANLEIJOSIANE ESPARZA Normal 09-17-2019 [facility] Pathology Medical Ce nter Department ([address]) Pathologist: LILLIAN CALDERON MD Date of Procedure: 09/17/2019 Date Received: 09/17/2019 Date Reported 09/18/2019 Submitting Physician: GRISELDA OLIVARES DO Location: [facility] Copy To/Referring/Attending: PEGGY SANTANA, KAYLEY Other External # FINAL DIAGNOSIS A. SIGMOID COLON POLYP, POLYPECTOMY: --HYPERPLASTIC POLYP. Interpretation performed at: [facility] [place] [address] [place] [address] Electronically Signed Out By LILLIAN CALDERON MD/NIKO By the signature on this report, the individual or group listed as making the Final Interpretation/Diagnosis certifies that they have re viewed this case. Clinical History: Physician Contact Number: [id number] Fixative (A): Formalin Clinical Diagnosis History SCREENING Specimens Submitted As: A: SIGMOID COLON POLYP Gross Description: Received in formalin, labeled with the patient's name and hospital number and sigmoid colon polyp, is a fragment of arechiga, soft tissue measuring 0.3 x 0.2 x 0.2 cm. The specimen is submitted in toto in one cassette. [facility] Comment: Performed By: #### [facility] #### [facility] Surgical Pathology Depar [facility]ment [address] [place] [facility] [address] coronavirus 2019, screen asymptomatic on 2019-09-15 CORONAVIRUS 2019,PCR NOT DETECTED Not Detected Normal [facility] nter (17912) Comment: Result Comment: . This assay is designed to de tect SARS-CoV-2 based on replication of specific regions of the RNA from the SARS-CoV-2 virus. A Not Detected result does not preclude 2019-nCoV infection since the adequacy of sample collection and/or low viral burden may result in presence of viral nucleic acids below the clinical sensitivity of this test method. Fact sheet for providers: ht tps://www.fda.gov/media/334301/download Fact sheet for patients: htt ps://www.fda.gov/media/597858/download This test has been validated by the sous chef but [facility] independent review of this validation is pending. This test has been verified by [facility] ([facility]). This test is only authorized for the duration of time that circumstances exist to justify the authorization of the emergen cy use of in vitro diagnostic tests for the detection of SARS-CoV-2 viru s and/or diagnosis of COVID-19 infection under section 564(b)(1) of the Act , 21 U.S.C. 360bbb-3(b)(1), unless the authorization is terminated or revoked sooner. [facility] is certified under CLIA-88 as qualified to perform high co mplexity testing. Testing is performed in the [facility] laboratories located [place] t [address] [place] [address]. Performed By: #### COVSC ### # [facility] [id number] [place] [address] coronavirus 2019, screen asymptomatic on 2019-09-14 Lab Specimen Source Nasal, Nasopharyngeal Normal 09-14-2019 [facility] (00 000) Comment: Performed By: #### COVSC ### # [facility] [address] [place] [address] albumin, urine spot on 2019-03-14 ALBUMIN,URINE 22.7 Not Established mg/L Normal 03-14-2019 [facility] ([address]) Comment: Performed By: #### ALBSP ### # [address] [address] ALBUMIN/CREAT RATIO 17.9 0.0 - 30.0 ug/mg foreign car mechanic Normal 9 [facility] (00 000) Comment: Performed By: #### ALBSP ### # [address] [address] CREATININE,URINE 127.0 20.0 - 320.0 mg/dL Normal 03-14-2019 [facility] ([address]47) Comment: Performed By: #### ALBSP ### # [address] [address] No panel information on 2019-03-14 Albumin Ql (U) 22.7 See Below mg/L 03-14-2019 [facility] ([address]) Comment: Reference Range: Not Establi shed Ordering Provider: HIMANSHU PATRICK [id number] Albumin/Creatinine DL <= 17.9 0.0 - 30.0 {ug/mg_crt} [facility] 20 mg/L (U) [Mass ratio] Practice ([address]) Comment: Ordering Provider: HIMANSHU Bradshaw Creatinine (U) [Mass/Vol] 127.0 See Below mg/dL 02-24 [facility] ( [address]) Comment: Reference Range: 20.0 - 320. 0 Ordering Provider: HIMANSHU Capellan98 xr knee complete right on 2018-12-05 XR Knee Complete Exam Date/Time: Normal 019 [facility] Right 12/04/2018 11:53 EDT Health System Reason for Exam: (00 000) Leg pain Report STUDY: XR Knee Complete Right; 12/04/2018 11:53 am INDICATION: Leg pain. COMPARISON: None. ACCESSION NUMBER(S): [id number] ORDERING CLINICIAN: Peggy Santana TECHNIQUE: 4 views of the right knee in cluding AP, lateral and bilateral oblique projections were obtained. FINDINGS: There is no evidence of acut e fracture or dislocation identified. Moderate joint space narrowing and small to moderate margin al osteophytes are seen in the medial compartment of the right knee. Small marginal osteophytes a re seen in the patellofemoral compartment. No suprapatellar joint effusion is present. IMPRESSION: 1. No acute fracture or dislocation. 2. Degenerative changes, as described above. FINAL REPORT Dictated: 12/05/2018 10:50 am Kristofer Castro MD Signed (Electronic Signature): 12/05/2018 10:50 am Signed by: Kristofer Castro MD Technologist: [facility] xr knee complete left on 2018-12-05 XR Knee Complete Exam Date/Time: Normal 019 [facility] Left 12/04/2018 11:53 EDT Health System Reason for Exam: (00 000) Leg pain Report STUDY: XR Knee Complete Left; 12/04/2018 11:53 am INDICATION: Leg pain. COMPARISON: None. ACCESSION NUMBER(S): [id number] ORDERING CLINICIAN: Peggy Santana TECHNIQUE: 4 views of the left knee inc luding AP, lateral and bilateral oblique projections were obtained. FINDINGS: There is no evidence of acut e fracture or dislocation identified. Mild joint space narrowing and small marginal osteophytes a re seen in the medial compartment of the left knee. Minimal marginal osteophyte formation is seen in the patellofemoral compartment. No suprapatellar joint effusion is present. IMPRESSION: 1. No acute fracture or dislocation. 2. Degenerative changes, as described above. FINAL REPORT Dictated: 12/05/2018 10:49 am Kristofer Castro MD Signed (Electronic Signature): 12/05/2018 10:49 am Signed by: Kristofer Castro MD Technologist: [facility] xr hip 2-3 views right on 2018-12-05 XR Hip 2-3 Views Exam Date/Time: Normal 019 [facility] 12/04/2018 11:53 EDT Health System Reason for Exam: (00 000) Pain, Non Traumatic Report STUDY: XR Hip 2-3 Views Right; 12/04/2018 11:53 am INDICATION: Pain, Non Traumatic. COMPARISON: None. ACCESSION NUMBER(S): [id number] ORDERING CLINICIAN: Peggy Santana TECHNIQUE: AP and lateral views of the right hip were obtained. FINDINGS: There is no acute fracture o r dislocation identified. Moderate to severe hypertrophic degenerative changes are see n in the right sacroiliac joint and pubic symphysis. Minimal joint space narrowing and tiny marginal osteophytes are seen in th e right hip. IMPRESSION: 1. No evidence of acute fracture or dislocation. 2. Degenerative changes, as described above. FINAL REPORT Dictated: 12/05/2018 10:51 am Kristofer Castro MD Signed (Electronic Signature): 12/05/2018 10:51 am Signed by: Kristofer Castro MD Technologist: [facility] xr hip 2-3 views left on 2018-12-05 XR Hip 2-3 Views Exam Date/Time: Normal 019 [facility] 12/04/2018 11:53 EDT Health System Reason for Exam: (00 000) Pain, Non Traumatic Report STUDY: XR Hip 2-3 Views Left; 12/04/2018 11:53 am INDICATION: Pain, Non Traumatic. COMPARISON: None. ACCESSION NUMBER(S): [id number] ORDERING CLINICIAN: Peggy Santana TECHNIQUE: AP and lateral views of the left hip were obtained. FINDINGS: There is no acute fracture o r dislocation identified. Moderate to severe hypertrophic degenerative changes are see n in the left sacroiliac joint and pubic symphysis. Minimal marginal osteophyte formation is seen in the left hip. IMPRESSION: 1. No evidence of acute fracture or dislocation. 2. Degenerative changes, as described above. FINAL REPORT Dictated: 12/05/2018 10:51 am Kristofer Castro MD Signed (Electronic Signature): 12/05/2018 10:51 am Signed by: Kristofer Castro MD Technologist: [facility] progress on 2018-09 PROGRESS HNO ID: [id number] Normal 10-02-2018 [facility] Author: Renee Duvall ([id number]) Service: ? Author Type: Nurse Practitioner Type: Progress Notes Filed: 10/02/2018 1:03 PM Note Text: DIABETES VISIT HISTORIES FAMILY HISTORY Problem Relation Age of Onset - Diabetes Mother - Diabetes Father - Diabetes Maternal Grandmother - Diabetes Maternal Grandfather - Diabetes Paternal Grandmother PAST MEDICAL HISTORY Diagnosis Date - Arthropathy, unspecified, site unspecified - Dizziness and giddiness - Essential hypertension, benign - Other specified cardiac dysrhythmias(427.89) - Type II or unspecified type diabetes mellitus without ment ion of complication, uncontrolled - Unspecified hypothyroidism 10/09/2006 PAST SURGICAL HISTORY Procedure Laterality Date - AMPUTATION FINGER/THUMB LEFT INDEX FINGER - COLONOSCOP W/ OR W/O [facility] SPEC 04/11/14 Colonoscopy - KNEE SCOPE,DIAGNOSTIC 06-23-05 Arthroscopy, knee, right - STEREOTACTIC CORE BIOPSY 10/28/05 Inferior mid left and inferior inner left - THYROIDECTOMY RIGHT SUB TOTAL - TOTAL ABDOM HYSTERECTOMY 1998 Hysterectomy, [facility] Social History Socioeconomic History Marital status: Spouse name: Omar Number of children: 3 Years of education: 15 Highest education level: Not on file Social Needs Financial resource strain: Not on file Food insecurity - worry: Not on file Food insecurity - inability: Not on file Transportation needs - medical: Not on file Transportation needs - non-medical: Not on file Occupational History Occupation: retired Employer: [employer] Tobacco Use Smoking status: Former Smoker Years: 6.00 Smokeless tobacco: Never Used Tobacco comment: smokes from age 19 to 25 Substance and Sexual Activity Alcohol use: No Drug use: No Sexual activity: Yes Partners: Male Comment: HERNANDO Other Topics Concerns: Not on file 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[facility] , rosa Orozco through end 2005 Immunization History Administered Date(s) Administered Influenza Seasonal - High Dose - Age 65+ 01/06/2016 Influenza Seasonal Inj Age 3+ 01/22/2014 Influenza Seasonal Inj Quadrivalent Age 3+ 12/25/2014 Influenza Vaccine, Split-Non Spec 12/25/2006 01/12/2010 12/30/2010 12/23/2011 02/07/2013 Pneumococcal-13 Vac Conjugate 09/15/2015 Pneumovax 09/06/2005 TD Adult 09/06/2005 Zostavax 12/30/2010 ALLERGIES Allergen Reactions - Sulfabenzamide GI Upset Current Outpatient Medications on File Prior to Visit: levothyroxine (SYNTHROID) 88 mcg tablet TAKE 1 TABLET BY KAITLYN TH ONCE DAILY. metFORMIN (GLUCOPHAGE) 500 mg tablet TAKE 2 TABLETS BY MOUTH TWICE DAILY WITH MEALS. metoprolol succinate ER (TOPROL XL) 50 mg 24 hr tablet Take 1 tablet by mouth once daily. gabapentin (NEURONTIN) 300 mg capsule Take 1 capsule by mout h three times daily. If needed may add another 300 mg dose ~2pm. insulin aspart (NOVOLOG FLEXPEN) 100 unit/mL inpn Take 15 un its w/breakfast, 15 units w/lunch, and 24 units with dinner pantoprazole DR (PROTONIX) 40 mg tablet TAKE 1 TABLET BY KAITLYN TH ONCE DAILY. Insulin Bruner, Disposable, (HKOA PEN NEEDLE) 32 gauge x ndle UAD for injections venlafaxine ER (EFFEXOR XR) 75 mg 24 hr capsule Take 1 capsu le by mouth once daily. Lancets lancets Test blood sugar(s) 6x daily. Dx: 250.62. In sulin: Yes liraglutide (VICTOZA 2-MARITZA) 0.6 mg/0.1 mL (18 mg/3 mL) pnij Inject 0.6 mg daily via pen Indications: TYPE 2 DIABETES MELLITUS Fosinopril Sodium (MONOPRIL) 20 mg tablet Take 1 tablet by m outh once daily. exenatide (BYETTA) 5 mcg/dose (250 mcg/mL) 1.2 mL injection Inject 5 mcg subcutaneously twice daily with meals. albuterol HFA (PROVENTIL HFA, VENTOLIN HFA) 90 mcg/actuation inhaler Inhale 2 Puffs as instructed every 4 hours as needed. naproxen (NAPROSYN) 500 mg tablet Take 1 tablet by mouth twi ce daily as needed. FOR PAIN. TAKE WITH FOOD. blood sugar diagnostic (BLOOD GLUCOSE TEST) test strip Test blood sugar(s) 4x daily. Dx: e11.65. Insulin: Yes Cholecalciferol, Vitamin D3, 1,000 unit cap Take 1 capsule b y mouth once daily. calcium carbonate (CALCIUM 600) 600 mg (1,500 mg) tab Take 1 tablet by mouth once daily. insulin glargine (LANTUS SOLOSTAR) 100 unit/mL (3 mL) inpn I nject 58 Units subcutaneously daily at bedtime. atorvastatin (LIPITOR) 20 mg tablet Take 1 tablet by mouth o nce daily. Blood-Glucose Meter (ONETOUCH ULTRA2) monitoring kit 1 Each as directed. 6 times daily One Touch Meter Kit Dx: E11.40 E11.65 Blood-Glucose Meter [facility] Dispense 1 kit ASPIRIN 81 MG CHEWABLE TAB Take one(1) tablet daily. CENTRUM SILVER TAB Take one(1) tablet daily. No current facility-administered medications on file prior t o visit. LABS TSH (uU/mL) Date Value 05/10/2016 1.190 08/15/2015 1.640 07/19/2014 1.710 ALT (U/L) Date Value 10/16/2014 34 06/08/2013 18 Potassium (mmol/L) Date Value 05/10/2016 4.4 01/06/2016 4.5 Creatinine (mg/dL) Date Value 05/10/2016 0.62 01/06/2016 0.60 11/03/2015 0.68 Hemoglobin A1C (%) Date Value 05/10/2016 11.3 01/06/2016 9.2 10/06/2015 9.4 Albumin, Urine Random (mg/L) Date Value 10/06/2015 6.6 10/16/2014 31.0 07/19/2014 22.9 Creatinine, Ur Random (UCRR) (mg/dL) Date Value 10/06/2015 67.0 10/16/2014 74.8 Albumin/Creat Ratio (mg/g) Date Value 10/06/2015 10 10/16/2014 41 Glucose (mg/dL) Date Value 05/10/2016 191 01/06/2016 210 11/03/2015 221 Calcium (mg/dL) Date Value 05/10/2016 9.3 01/06/2016 9.7 Vitamin D 25 Hydroxy (ng/mL) Date Value 10/06/2015 32.5 Lipids: Cholesterol, Total (mg/dL) Date Value 10/06/2015 151 10/16/2014 172 09/07/2013 168 HDL Cholesterol (mg/dL) Date Value 10/06/2015 49 10/16/2014 47 09/07/2013 52 LDL Cholesterol (mg/dL) Date Value 10/06/2015 73 10/16/2014 87 09/07/2013 81 Triglyceride (mg/dL) Date Value 10/06/2015 143 10/16/2014 191 09/07/2013 177 ([facility] 09/26/2018) A1c: 10.1 Lipids: Total cholesterol 154, HDL 41, LDL 72, triglycerides 204 EGFR: > 60 CMP: Within normal limits except glucose 309 CBC: Within normal limits Thyroid: TSH 1.2, free T4 1 0.14, free T3 3 0.4 Thyroid US 04/20/2018 TECHNIQUE: Grayscale and color Doppler ultrasound of the thyroid. FINDINGS: Heterogenous hypoechoic left thyroid remnant.. Increased vas cularity throughout the left thyroid remnant on color Doppler interrogation. No left lobe nodules are demonstrated. RIGHT LOBE: Status post right hemithyroidectomy. LEFT LOBE: 3.6 x 1.7 x 1.8 cm ISTHMUS: 0.4 cm IMPRESSION: The appearance of the left lobe remnant is consistent with a nonspecific thyroiditis in the appropriate clinical setting. No thyroid nodules are demonst rated. I reviewed the Natural Gas Technician's notes with this visit for vital signs, current allergies, medications, electronic medical record, l ab(s), outside lab(s), and or back office lab(s) results, history of vaccin ations, and chief complaints. I edited the information obtained, as requ ired. HISTORY OF PRESENT ILLNESS Josiane Acuña is a 68 year old female who returns to the endocrinology department for evaluation of uncontrolled Type 2 DM. She was previously seen only once by Dr. Hollis on 08/20/2013. She was also no show x2 after that initial office visit with Dr. Hollis. Naye plascencia has had diabetes since age 50. Also known history of peripheral neuropathy, cardiac arrhyth beverley with Ablation, aortic stenosis S/P partial thyroidectomy due to jose lima (-) CA Family history re DM : Parents, grandparents, siblings, chil dren Patient's last HgA1C was 10.3 on 09/26/2018 Diet: Breakfast: cranberry/apple juice 6 oz + 2 p toast (spray but ter) + 2 eggs or cottage cheese + 2 toast + juice or pickled eggs no cerea ls Snack: Pretzels or cauliflower + celery Lunch: sandwich (35 belgica bread) + vegtables or salad + chicke n strips + SF iced tea Snack: crackers + cheese or peanuts Dinner: veg + ham and cheese sandwich or 2 pizza Snack: ellie crax or saltine crax + cheeses Medications: The patient is currently taking the following medications to manage her diabetes: -metformin 1000 mg two tablets bis -Levemir 40 units every am + 42 units every bedtime 9-10 am + 11 pm--has been out of Levemir for 1 month -Novolog 12 units three times daily before meals + Sliding S raman 1 unit/50 >150 Monitoring: She reports checking her glucose with Freestyle lite meter: 3 times daily BG Values: Patient did not bring meter or log for review tomakenna rodriguez. She states her blood glucose range is 69-360s Most blood glucose levels run 200-260 Other issues: Last Ophthalmology exam was > 1 yr--- has appointment next w [facility] Last Podiatry exam : self care Hypoglycemia awareness:yes. Exercise: sits most of day Diabetes education: yes REVIEW OF SYSTEMS: GENERAL: No weight loss, malaise or fevers EYES: denies any recent visual changes CARDIAC: no chest pain, dyspnea, palpitations, edema, orthop micheline, cough LUNG:Negative for cough, hemoptysis, wheezing, COPD, dyspnea or shortness of breath GI: no nausea, fullness, vomiting, diarrhea, constipation, G I bleeding or heartburn :no dysuria, frequency, hesitancy, hematuria, polyuria, no cturia, UTIs, yeast infections, or kidney stones SKIN: Pt denies ulceration,cellulitis, abscess, acne, hirsut ism, rashes, or lesions FEET: neuropathy in feet --takes neurontin 2-3 times daily MUSCULO-SKELETAL: arthritis in hips, knees, hands NERVOUS SYSTEM: sciatic pain L leg DEPRESSION: on Effexor for depression - was deployed 3 times -3 sons in armed services -1 son killed in [place] The rest of the ROS is otherwise negative PHYSICAL EXAM: BP 116/71 Pulse 89 Ht 5' 3.11 (1.60m) Wt 173 lb 3.2 o z (78.6kg) SpO2 93% BMI 30.57 kg/(m2). Wt: 85.4 kg (188 lb 3.2 oz) BMI: 32.30 kg/(m2) Last 2 Encounter Wt Readings: Date: Wt: 05/10/2016 85.4 kg (188 lb 3.2 oz) 05/03/2016 83.4 kg (183 lb 12.8 oz) Appearance:Well appearing, alert, in no acute distress, well -hydrated, well nourished. and Obese Eyes:PERRLA, conjunctiva and sclera normal Neck: visible thyroidectomy scar, supple, no adenopathy Heart:RRR with no JVD appreciated Lungs:clear to auscultation Abdomen:bowel sounds normoactive Extremities: No edema and L traumatic index finger amputatio n (caught finger in machine at work in 1970s) Neuro:Awake, alert and oriented x 3, No involuntary motions. and Cranial nerves II-XII grossly intact Feet:Shoes and socks removed, No deformities, ulcers, callus es, Normal distal pulses, Sensitive to 10gm monofilament and Vibratory perception decreased bilateral Skin:Color, texture, turgor normal. No rashes or lesions IMPRESSION AND PLAN: (E11.40, Z79.4, E11.65) Uncontrolled type 2 diabetes mellitu s with diabetic neuropathy, with long-term current use of insulin ( HCC) (primary encounter diagnosis) Comment: patient returns for evaluation of uncontrolled DM A1c on 09/26/2018 was 10.3% Plan: -labs:reviewed labs from 09/26/2018 in Care everywhere--see ab ove -Medications: -change Levemir dosage to 30 units twice daily -change Novolog dosage to 18 units three times daily before meals + Sliding Scale 2 units/50>150 -continue metformin 1000 mg twice daily -Refills: No, the patient did not request refills -Recommended diet: 45 g CHO at mealtimes, 15 g CHO at snacks -Recommended exercise: as tolerated -Monitor blood glucose 3 times per day. The patient was advi sed to contact the office if the blood sugar readings are consisten tly high or if having frequent hypoglycemia. -Driving and Diabetes has been reviewed with the patient (E89.0) Postoperative hypothyroidism Comment: history of R hemithyroidectomy due to goiter with r ecent US of thyroid as well as labs Plan: -continue LT4 88 mcg daily Patient to continue to follow up with her Primary Care Gaby alegre and with other consultants regarding her other medical problems. Entire visit was 60 min with >50% of time spent as face to f mayra counseling regarding blood sugar monitoring, insulin administration and adjustment, symptoms AND treatment of hypoglycemia, importance of diet a dherence, instruction and review carb counting, discussion of BMI and weight goals and importance of exercise program and Plan of Care. Next visit in 3 months. Renee Harrison MSN, HEAD OF BIOLOGY, CDE Department of Endocrinology, Diabetes and Metabolism cnov on 2018-10-02 CNOV Office Visit ([facility]) Normal 10-03-19 [facility] JOSIANE ACUÑA ([id number]) 1950 [facility] Date Time Provider Department ([id number]) 10/02/18 9:00 AM RENEE HARRISON (KAYLEY) [place] During your visit today, we recorded the following informati on about you: Pulse Blood pressure Weight Height 89/minute 116/71 78.6 kg 1.603 m Renee Harrison APRN.CNP 10/02/2018 1:03 PM Signed DIABETES VISIT HISTORIES FAMILY HISTORY Problem Relation Age of Onset - Diabetes Mother - Diabetes Father - Diabetes Maternal Grandmother - Diabetes Maternal Grandfather - Diabetes Paternal Grandmother PAST MEDICAL HISTORY Diagnosis Date - Arthropathy, unspecified, site unspecified - Dizziness and giddiness - Essential hypertension, benign - Other specified cardiac dysrhythmias(427.89) - Type II or unspecified type diabetes mellitus without ment ion of complication, uncontrolled - Unspecified hypothyroidism 10/09/2006 PAST SURGICAL HISTORY Procedure Laterality Date - AMPUTATION FINGER/THUMB LEFT INDEX FINGER - COLONOSCOP W/ OR W/O [facility] SPEC 04/11/14 Colonoscopy - KNEE SCOPE,DIAGNOSTIC 06-23-05 Arthroscopy, knee, right - STEREOTACTIC CORE BIOPSY 10/28/05 Inferior mid left and inferior inner left - THYROIDECTOMY RIGHT SUB TOTAL - TOTAL ABDOM HYSTERECTOMY 1998 Hysterectomy, [facility] Social History Socioeconomic History Marital status: Spouse name: Omar Number of children: 3 Years of education: 15 Highest education level: Not on file Social Needs Financial resource strain: Not on file Food insecurity - worry: Not on file Food insecurity - inability: Not on file Transportation needs - medical: Not on file Transportation needs - non-medical: Not on file Occupational History Occupation: retired Employer: [employer] Tobacco Use Smoking status: Former Smoker Years: 6.00 Smokeless tobacco: Never Used Tobacco comment: smokes from age 19 to 25 Substance and Sexual Activity Alcohol use: No Drug use: No Sexual activity: Yes Partners: Male Comment: [facility] Other Topics Concerns: Not on file Social History Narrative [facility] , rosa Orozco through end 2005 Immunization History Administered Date(s) Administered Influenza Seasonal - High Dose - Age 65+ 01/06/2016 Influenza Seasonal Inj Age 3+ 01/22/2014 Influenza Seasonal Inj Quadrivalent Age 3+ 12/25/2014 Influenza Vaccine, Split-Non Spec 12/25/2006 01/12/2010 12/30/2010 12/23/2011 02/07/2013 Pneumococcal-13 Vac Conjugate 09/15/2015 Pneumovax 09/06/2005 TD Adult 09/06/2005 Zostavax 12/30/2010 ALLERGIES Allergen Reactions - Sulfabenzamide GI Upset Current Outpatient Medications on File Prior to Visit: levothyroxine (SYNTHROID) 88 mcg tablet TAKE 1 TABLET BY KAITLYN TH ONCE DAILY. metFORMIN (GLUCOPHAGE) 500 mg tablet TAKE 2 TABL ETS BY MOUTH TWICE DAILY WITH MEALS. metoprolol succinate ER (TOPROL XL) 50 mg 24 hr tablet Take 1 tablet by mouth once daily. gabapentin (NEURONTIN) 300 mg capsule Take 1 capsule by mout h three times daily. If needed may add another 300 mg dose ~2pm. insulin aspart (NOVOLOG FLEX PEN) 100 unit/mL inpn Take 15 units w/breakfast, 15 units w/lunch, and 24 units with dinner pantoprazole DR (PROTONIX) 40 mg tablet TAKE 1 TABLET BY KAITLYN TH ONCE DAILY. Insulin Bruner, Disposable, (KHOA PEN NEEDLE) 32 gaug e x ndle UAD for injections venlafaxine ER (EFFEXOR XR) 75 mg 24 hr capsule Take 1 capsule by mouth once daily. Lancets lancets Test blood sugar(s) 6x daily. Dx: 250.62. In sulin: Yes liraglutide (VICTOZA 2-MARITZA) 0.6 mg/0.1 mL (18 mg/3 mL) pnij Inject 0.6 mg daily via pen Indications: TYPE 2 DIABETES MELLITUS Fosinopril Sodium (MONOPRIL) 20 mg tablet Take 1 table t by mouth once daily. exenatide (BYETTA) 5 mcg/dose (250 mcg/mL) 1.2 mL injection Inject 5 mcg subcutaneously twice daily with meals. albuterol HFA (PROVENTIL HFA, VENTOLIN HFA) 90 m cg/actuation inhaler Inhale 2 Puffs as instructed every 4 hours as needed. naproxen (NAPROSYN) 500 mg t ablet Take 1 tablet by mouth twice daily as needed. FOR PAIN. TAKE WITH FOOD. blood sugar diagnostic (BLOOD GLUCOSE TEST) test strip Test blood sugar(s) 4x daily. Dx: e11.65. Insulin: Yes Cholecalciferol, Vitamin D3, 1,000 unit cap Take 1 capsule by mouth once daily. calcium carbonate (CALCIUM 600) 600 mg (1,500 mg) tab Take 1 tablet by mouth once daily. insulin glargine (LANTUS SOLOSTAR) 100 unit/mL (3 mL) inpn I nject 58 Units subcutaneously daily at bedtime. atorvastatin (LIPITOR) 20 mg tablet Take 1 tablet by mouth o nce daily. Blood-Glucose Meter (ONETOUCH ULTRA2) monitoring kit 1 Each as directed. 6 times daily One Touch Meter Kit Dx: E11.40 E11.65 Blood-Glucose Meter [facility] Dispense 1 kit ASPIRIN 81 MG CHEWABLE TAB Take one(1) tablet daily. CENTRUM SILVER TAB Take one(1) tablet daily. No current facility-administered medications on file prior t o visit. LABS TSH (uU/mL) Date Value 05/10/2016 1.190 08/15/2015 1.640 07/19/2014 1.710 ALT (U/L) Date Value 10/16/2014 34 06/08/2013 18 Potassium (mmol/L) Date Value 05/10/2016 4.4 01/06/2016 4.5 Creatinine (mg/dL) Date Value 05/10/2016 0.62 01/06/2016 0.60 11/03/2015 0.68 Hemoglobin A1C (%) Date Value 05/10/2016 11.3 01/06/2016 9.2 10/06/2015 9.4 Albumin, Urine Random (mg/L) Date Value 10/06/2015 6.6 10/16/2014 31.0 07/19/2014 22.9 Creatinine, Ur Random (UCRR) (mg/dL) Date Value 10/06/2015 67.0 10/16/2014 74.8 Albumin/Creat Ratio (mg/g) Date Value 10/06/2015 10 10/16/2014 41 Glucose (mg/dL) Date Value 05/10/2016 191 01/06/2016 210 11/03/2015 221 Calcium (mg/dL) Date Value 05/10/2016 9.3 01/06/2016 9.7 Vitamin D 25 Hydroxy (ng/mL) Date Value 10/06/2015 32.5 Lipids: Cholesterol, Total (mg/dL) Date Value 10/06/2015 151 10/16/2014 172 09/07/2013 168 HDL Cholesterol (mg/dL) Date Value 10/06/2015 49 10/16/2014 47 09/07/2013 52 LDL Cholesterol (mg/dL) Date Value 10/06/2015 73 10/16/2014 87 09/07/2013 81 Triglyceride (mg/dL) Date Value 10/06/2015 143 10/16/2014 191 09/07/2013 177 ([facility] 09/26/2018) A1c: 10.1 Lipids: Total cholesterol 154, HDL 41, LDL 72, triglycerides 204 EGFR: > 60 CMP: Within normal limits except glucose 309 CBC: Within normal limits Thyroid: TSH 1.2, free T4 1 0.14, free T3 3 0.4 Thyroid US 04/20/2018 TECHNIQUE: Grayscale and color Doppler ultrasound of the thyroid. FINDINGS: Heterogenous hypoechoic left thyroid remnant.. Increased vascularity throughout the left thyroid remnant on color Doppler interrogation. No left lobe nodules are demonstrated. RIGHT LOBE: Status post right hemithyroidectomy. LEFT LOBE: 3.6 x 1.7 x 1.8 cm ISTHMUS: 0.4 cm IMPRESSION: The appearance of the left lobe remnant is consistent with a nonspecific thyroiditis in the appropriate clinical setting. No thyroid nodules are demonst rated. I reviewed the Natural Gas Technician's notes with this visit for vital signs, current allergies, medications, electronic medical record, l ab(s), outside lab(s), and or back office lab(s) results, histo ry of vaccinations, and chief complaints. I edited the information obtained, as required. HISTORY OF PRESENT ILLNESS Josiane Acuña is a 68 year old female who returns to the endocrinology department for evaluation of uncontrolled Type 2 DM. S he was previously seen only once by Dr. Hollis on 08/20/2013. She was also no show x2 after that initial office visit with Dr. Hollis. Patient has had diabetes since a ge 50. Also known history of peripheral neuropa thy, cardiac arrhythmia with Ablation, aortic stenosis S/P partial thyroidectomy due to goiter (-) CA Family history re DM : Parents, grandparents, siblings, chil dren Patient's last HgA1C was 10.3 on 09/26/2018 Diet: Breakfast: cranberry/apple juice 6 oz + 2 p toast (spr ay butter) + 2 eggs or cottage cheese + 2 toast + juice or pickled eggs no cereals Snack: Pretzels or cauliflower + celery Lunch: sandwich (35 belgica bread) + vegtabl es or salad + chicken strips + SF iced tea Snack: crackers + cheese or peanuts Dinner: veg + ham and cheese sandwich or 2 pizza Snack: ellie crax or saltine crax + cheeses Medications: The patient is currently taking the following medications to manage her diabetes: -metformin 1000 mg two tablets bis -Levemir 40 units every am + 42 units every bedt diana 9-10 am + 11 pm--has been out of Levemir for 1 month -Novolog 12 units three time s daily before meals + Sliding Scale 1 unit/50 >150 Monitoring: She reports chec yoan her glucose with Freestyle lite meter: 3 times daily BG Values: Patient did not bring meter or log for review tomakenan rodriguez. She states her blood glucose range is 69-360s Most blood glucose levels run 200-260 Other issues: Last Ophthalmology exam was > 1 yr--- has appointment next w [facility] Last Podiatry exam : self care Hypoglycemia awareness:yes. Exercise: sits most of day Diabetes education: yes REVIEW OF SYSTEMS: GENERAL: No weight loss, malaise or fevers EYES: denies any recent visual changes CARDIAC: no chest pain, dyspnea, palpitations, edema, orthop micheline, cough LUNG:Negative for cough, hemoptysis, wheezing, COPD, d yspnea or shortness of breath GI: no nausea, fullness, vomiting, diarrhea, constipation, G I bleeding or heartburn :no dysuria, frequency, he sitancy, hematuria, polyuria, nocturia, UTIs, yeast infections, or kidney stones SKIN: Pt denies ulceration,cellulitis, abscess, acne, hirs utism, rashes, or lesions FEET: neuropathy in feet --takes neurontin 2-3 times daily MUSCULO-SKELETAL: arthritis in hips, knees, hands NERVOUS SYSTEM: sciatic pain L leg DEPRESSION: on Effexor for depression - was deployed 3 times -3 sons in armed services -1 son killed in [place] The rest of the ROS is otherwise negative PHYSICAL EXAM: BP 116/71 Pulse 89 Ht 5' 3.11 (1.60m) Wt 173 lb 3.2 oz (78.6kg) SpO2 93% BMI 30.57 kg/(m2). Wt: 85.4 kg (188 lb 3.2 oz) BMI: 32.30 kg/(m2) Last 2 Encounter Wt Readings: Date: Wt: 05/10/2016 85.4 kg (188 lb 3.2 oz) 05/03/2016 83.4 kg (183 lb 12.8 oz) Appearance:Well appearing, alert, in no acute distress, we ll-hydrated, well nourished. 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 and Cranial nerves II-XII grossly intact Feet:Shoes and socks removed, No deformities, ul cers, calluses, Normal distal pulses, Sensitive to 10gm monofilament and Vibratory percept ion decreased bilateral Skin:Color, texture, turgor normal. No rashes or lesions IMPRESSION AND PLAN: (E11.40, Z79.4, E11.65) Uncontrolled type 2 diabetes haider manning with diabetic neuropathy, with long-term current use of insulin ([facility]) (beronica pineda encounter diagnosis) Comment: patient returns for evaluation of uncontrolled DM A1c on 09/26/2018 was 10.3% Plan: -labs:reviewed labs from 09/26/2018 in Care everywhere--see ab ove -Medications: -change Levemir dosage to 30 units twice daily -change Novolog dosage to 18 units three times daily befor e meals + Sliding Scale 2 units/50>150 -continue metformin 1000 mg twice daily -Refills: No, the patient did not request refills -Recommended diet: 45 g CHO at mealtimes, 15 g CHO at snacks -Recommended exercise: as tolerated -Monitor blood glucose 3 times per day. The patient was advised to contact the office if the blood sugar readings are c onsistently high or if having frequent hypoglycemia. -Driving and Diabetes has been reviewed with the patient (E89.0) Postoperative hypothyroidism Comment: history of R hemith yroidectomy due to goiter with recent US of thyroid as well as labs Plan: -continue LT4 88 mcg daily Patient to continue to follow up with he r Primary Care Provider and with other consultants regarding her other medical problems. Entire visit was 60 min with >50% of time spent as face to f mayra counseling regarding blood sugar monitoring, insulin administration and adjustment, symptoms AND treatment of hy poglycemia, importance of diet adherence, instruction and review carb counting, discussion of BMI and weight goals and importance of exercise program and Plan of Care. Next visit in 3 months. Renee Harrison MSN, HEAD OF BIOLOGY, CDE Department of Endocrinology, Diabetes and Metabolism Renee Harrison APRN.KAYLEY 10/02/2018 10:13 AM Addendum Change your Levemir dosages to 30 units twice daily Change your Novolog dosage t o 18 units three times daily before meals + Sliding Scale 2 units/50>150 Add this amount of insulin at mealtimes 151-200= 2, 201-250= 4, 251-300= 6, 301-350= 8, 351-400=10, >401=12, recheck in 4 hrs Continue metformin 1000 mg twice daily with breakfast and di nner CARBS Night snack and all snacks should be limited to 15 grams carbs at mealtimes should be limited to 45 grams Referring Provider: PEGGY SANTANA [[id number]] Allergies As of Date: 10/02/2018 Noted Allergy Reaction SULFABENZAMIDE 03/30/2005 8 - GI Upset Date Reviewed: 10/02/2018 Reviewed by: Renee ([facility]) Hunter - Fully Assessed Reason for Visit: Diabetes [34] Primary Visit Diagnosis:Uncontrolled type 2 diabetes haider juan antoniofilomena with diabetic neuropathy, with long-term current use of insulin ([facility]) [E11.40, Z79.4, E11.65] Other Visit Diagnosis:Postoperative hypothyroidism [E89.0] Order(s):blood sugar diagnostic (BLOOD GLUCOSE TEST) [facility] sugar(s) 3x daily. Dx: e11.65. Insulin: Yes, Freestyle lite teststripsDisp: 300 StripRfl: 3 insulin detemir U-100 (LEVEMIR) 100 unit/mL (3 mL) inpn injectionInject 20 Units subcutaneously twice daily.Disp: Rf l: insulin aspart U-100 (NOVOLOG FLEXPEN U-100 INSULIN) 100 uni t/mL (3 mL) inpnTake 18 units three times daily before meals + Slidi ng Scale 2 units/50 >150 TDD 70Disp: 40 mLRfl: 1 Prescriptions as of 10/02/2018 Sig: METFORMIN 1,000 MG TABLET Take 1,000 mg by mouth twice * BLOOD-GLUCOSE METER KIT 1 Each as needed (Freestyle L* BLOOD SUGAR DIAGNOSTIC STRIPS Test blood sugar(s) 3x daily.* MELATONIN 3 MG DISINTEGRATING* Take by mouth. INSULIN ASPART (U-100) 100 UN* Take 18 units three times calos * LEVOTHYROXINE 88 MCG CAPSULE Take by mouth once daily. METOPROLOL SUCCINATE ER 50 MG* Take 1 tablet by mouth once d * GABAPENTIN 300 MG CAPSULE Take 1 capsule by mouth three* PANTOPRAZOLE 40 MG TABLET,DEL* TAKE 1 TABLET BY MOUTH ONCE D * PEN NEEDLE, DIABETIC 32 GAUGE* UAD for injections VENLAFAXINE ER 75 MG CAPSULE,* Take 1 capsule by mouth once * LANCETS Test blood sugar(s) 6x daily.* FOSINOPRIL 20 MG TABLET Take 1 tablet by mouth once d* ATORVASTATIN 20 MG TABLET Take 1 tablet by mouth once d* INSULIN DETEMIR (U-100) 100 U* Inject 20 Units subcutaneousl * BLOOD-GLUCOSE METER Dispense 1 kit ASPIRIN 81 MG CHEWABLE TABLET Take one(1) tablet daily. CENTRUM SILVER TABLET Take one(1) tablet daily. 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 UNSP ABNORMAL MAMMOGRAM (Left) [R92.8] INVALID FOR* 5 Hypothyroidism [E03.9] INVALID FOR* More... MIXED HYPERLIPIDEMIA [E78.2] INVALID FOR* More... HTN, goal below 140/90 [I10] INVALID FOR* PSVT [I47.1] INVALID FOR* More... Lumbago [M54.5] INVALID FOR*07/21/2014 DM type 2, uncontrolled, with neuropathy [E11.4*INVALID FOR* 11/19/2013 DM type 2, uncontrolled, with neuropathy (HCC) *INVALID FOR* More... Special screening for malignant neoplasms, colo*INVALID FOR* 04/11/2014 Renovascular hypertension with goal blood press*INVALID FOR* Gastroesophageal reflux disease without esophag*INVALID FOR* Osteopenia [M85.80] INVALID FOR* Other instructions from your clinician: Change your Levemir dosages to 30 units twice daily Change your Novolog dosage to 18 units three times daily bef ore meals + Sliding Scale 2 units/50>150 Add this amount of insulin at mealtimes 151-200= 2, 201-250= 4, 251-300= 6, 301-350= 8, 351-400=10, >401=12, recheck in 4 hrs Continue metformin 1000 mg twice daily with breakfast and di nner CARBS Night snack and all snacks should be limited to 15 grams carbs at mealtimes should be limited to 45 grams Prescriptions ordered this encounter Disp Refills Start End BLOOD SUGAR DIAGNOSTIC STRIPS 300 * 3 10/02/2018 10/02/2018 Class: Med Update Sig: Test blood sugar(s) 3x daily. Dx: e11.65. Insulin: Ye s, Freestyle lite teststrips BLOOD SUGAR DIAGNOSTIC STRIPS 300 * 3 10/02/2018 Sig: Test blood sugar(s) 3x daily. Dx: e11.65. Insulin: Ye s, Freestyle lite teststrips INSULIN DETEMIR (U-100) 100 UNIT/ML * 10/02/2018 Class: Med Update Route: SUBCUTANEOUS Sig: Inject 20 Units subcutaneously twice daily. INSULIN ASPART (U-100) 100 UNIT/ML (* 40 mL 1 10/02/2018 Class: Med Update Sig: Take 18 units three times daily before meals + Sl iding Scale 2 units/50 >150 TDD 70 Medications Discontinued During This Encounter liraglutide (VICTOZA 2-MARITZA) 0.6 mg/0* 2 Pen 0 05/11/20162018 Cmt: Dose to be titrated by provider to 1.2 mg Sig: Inject 0.6 mg daily via pen Indications: TYPE 2 DIABETE S MELLITUS Disc: Discontinued by another Health Care Provider exenatide (BYETTA) 5 mcg/dose (250 m* 1 Pen 0 05/10/20162018 Route: SUBCUTANEOUS Sig: Inject 5 mcg subcutaneously twice daily with meals. Disc: Discontinued by another Health Care Provider metFORMIN (GLUCOPHAGE) 500 mg tablet 360 * 4 10/03/2016 019 Sig: TAKE 2 TABLETS BY MOUTH TWICE DAILY WITH MEALS. Disc: Discontinued by another Health Care Provider albuterol HFA (PROVENTIL HFA, VENTOL* 1 In* 0 05/03/2016 019 Route: INHALATION Sig: Inhale 2 Puffs as instructed every 4 hours as needed. Disc: Course of therapy completed naproxen (NAPROSYN) 500 mg tablet 40 t* 1 10/21/2015 10/02/2018 Route: ORAL Sig: Take 1 tablet by mouth twice daily as needed. FOR PAIN. TAKE WITH FOOD. Disc: Course of therapy completed Cholecalciferol, Vitamin D3, 1,000 u* 0 10/07/2015 10/02/2018 Class: OTC Route: ORAL Sig: Take 1 capsule by mouth once daily. Disc: Discontinued by Patient calcium carbonate (CALCIUM 600) 600 * 0 10/06/2015 10/02/2018 Class: OTC Route: ORAL Sig: Take 1 tablet by mouth once daily. Disc: Discontinued by Patient insulin glargine (LANTUS SOLOSTAR) 1* 15 P* 3 09/15/20152018 Class: Med Update Route: SUBCUTANEOUS Sig: Inject 58 Units subcutaneously daily at bedtime. Disc: Dosage adjustment Blood-Glucose Meter (ONETOUCH ULTRA2* 1 Ea* 0 02/11/201510/02 Route: Miscell. (Med.Supl.;Non-Drugs) Si Each as directed. 6 times daily One Touch Meter Kit Dx: E11.40 E11.65 Disc: Discontinued by Patient blood sugar diagnostic (BLOOD GLUCOS* 360 * 3 10/08/20152018 Sig: Test blood sugar(s) 4x daily. Dx: e11.65. Insulin: Yes Disc: Adjust Sig - Block E-Cancel blood sugar diagnostic (BLOOD GLUCOS* 300 * 3 10/02/2018 019 Class: Med Update Sig: Test blood sugar(s) 3x daily. Dx: e11.65. Insulin: Yes, Freestyle lite teststrips Disc: Reason for discontinue is not on file. insulin detemir (LEVEMIR FLEXTOUCH U* 10/02/2018 Class: Historical Med Route: SUBCUTANEOUS Sig: Inject subcutaneously t wice daily. 40 units in the AM, 42 units in the PM. Disc: Reason for discontinue is not on file. insulin aspart (NOVOLOG FLEXPEN) 100* 40 mL 1 08/19/20162018 Sig: Take 15 units w/breakfast, 15 units w/lunch, and 24 uni ts with dinner Patient taking differently: Sliding Scale Disc: Reason for discontinue is not on file. levothyroxine (SYNTHROID) 88 mcg tab* 90 t* 1 10/27/2016 019 Sig: TAKE 1 TABLET BY MOUTH ONCE DAILY. Disc: Duplicate Entry Disposition: Return in about 3 months (around 01/02/2019). Follow-up and Disposition History Recorded Encounter Status:Closed by RENEE HARRISON CNP on 10/02/18 lipid profile on 12-10-02 Cholesterol [Mass/Vol] 154 0-199 mg/dL Normal 019 [facility] (00 000) Comment: Result Comment: TOTAL CHOLEE STEROL: <200 NORMAL 200 - 239 BORDERLINE HIGH >240 HIGH Performed By: #### [id number] ####KIRSTEN [id number] [place] [address] Cholesterol in HDL 41 40-60 mg/dL Normal 09-26-2018 [facility] [Mass/Vol] [facility] (0 0000) Comment: Performed By: #### [id number] ####KIRSTEN [id number] [place] [address] Cholesterol in LDL 72 0-130 mg/dL Normal 09-26-2018 [facility] [Mass/Vol] [facility] (0 0000) Comment: Result Comment: <100 OPTIMAL 100-129 NEAR / ABOVE OPTIMAL 130-159 BORDERLINE HIGH 160-189 HIGH >190 VERY HIGH CALC LDL NOT VALID WHEN TRIG LYCERIDE IS >400 MG/DL Performed By: #### [id number] ####KIRSTEN [address] [place] [address] Cholesterol in VLDL 41 0-40 mg/dL High 09-26-2018 [facility] [Mass/Vol] [facility] (0 0000) Comment: Performed By: #### [id number] ####KIRSTEN [id number] [place] [address] Triglyceride [Mass/Vol] 204 0-149 mg/dL High 2018 [facility] (00 000) Comment: Result Comment: AGE DESIRABL E BORDERLINE HIGH 91 D - 9 Y 0 - 74 75 - 99 > 100 10 - 19 Y 0 - 89 90 - 129 > 130 20 -24 Y 0 - 114 115 - 149 > 150 > 25 0 - 149 150 - 199 200 - 499 Performed By: #### [id number] ####KIRSTEN [id number] [place] [address] hgba1c on 3 HbA1c (Bld) [Mass fraction] 10.1 4.0-6.3 % High [facility] (00 ) Comment: Performed By: #### [id number] ####KIRSTEN Chemistry Manual [id number] [place] [address] egfr on 2018-09-26 GFR/1.73 sq M predicted >60 mL/min/{1.73_m2} Normal 09-26-2018 [facility] among non-blacks [facility] (10816) (S/P/Bld) [Vol rate/Area] Comment: Order Comment: Order added b y Discern Expert. Performed By: #### [id number] #### KIRSTEN [employer] [address] [id number] cmp on 2018-09-26 Albumin [Mass/Vol] 3.9 3.4-5.0 gm/dL Normal 09-26-2018 [facility] (00 ) Comment: Performed By: #### [id number] # ### KIRSTEN D[employer]ink [address] [place] [address] Albumin/Globulin [Mass 1.4 1.1-1.9 ratio Normal 019 [facility] (32856) Comment: Performed By: #### [id number] # ### KIRSTEN [employer]ink [address] [place] [address] Alk Phos 102 33-136 Int._Unit/L Normal 09-26-2018 [facility] (62544) Comment: Performed By: #### [id number] # ### KIRSTEN [employer] [address] [place] [address] ALT [Catalytic 22 7-45 Int._Unit/L Normal 09-26-2018 [facility] activity/Vol [facility] (53813) Comment: Performed By: #### [id number] # ### KIRSTEN [employer]ink [address] [place] [address] Anion gap [Moles/Vol] 13 10-20 mEq/L Normal 09-27-19 19 [facility] (00 000) Comment: Performed By: #### [id number] # ### KIRSTEN [employer]ink [address] [place] [address] AST [Catalytic 12 9-39 Int._Unit/L Normal 09-26-2018 [facility] (95934) Comment: Performed By: #### [id number] # ### KIRSTEN [employer] [address] [place] [address] Bili Total 0.31 0.00-1.20 mg/dL Normal 09-26-2018 [facility] (27528) Comment: Performed By: #### [id number] # ### KIRSTEN [employer] [address] [place] [address] Calcium [Mass/Vol] 9.1 8.6-10.3 mg/dL Normal 09-26-2018 [facility] () Comment: Performed By: #### [id number] # ### KIRSTEN [employer] [address] [place] [address] Chloride [Moles/Vol] 99 98-107 mEq/L Normal 9 [facility] () Comment: Performed By: #### [id number] # ### KIRSTEN [employer] [address] [place] [address] CO2 [Moles/Vol] 27.0 21.0-32.0 mEq/L Normal 09-26-2018 [facility] () Comment: Performed By: #### [id number] # ### KIRSTEN [employer] [address] [place] [address] Creatinine [Mass/Vol] 0.8 0.5-1.1 mg/dL Normal 09-27-19 19 [facility] () Comment: Performed By: #### [id number] # ### KIRSTEN [employer] [address] [place] [address] Globulin (S) [Mass/Vol] 3.0 2.0-4.0 G/DL Normal 2018 [facility] () Comment: Performed By: #### [id number] # ### KIRSTEN Datalink [facility] [place] [address] Glucose [Mass/Vol] 309 70-99 mg/dL High 09-26-2018 [facility] (04875) Comment: Performed By: #### [id number] # ### KIRSTEN [employer]ink [address] [place] [address] Potassium [Moles/Vol] 3.9 3.5-5.3 mEq/L Normal 09-27-19 19 [facility] (00 000) Comment: Performed By: #### [id number] # ### KIRSTEN [employer] [address] [place] [address] Protein [Mass/Vol] 6.6 6.4-8.2 gm/dL Normal 09-26-2018 [facility] (00 000) Comment: Performed By: #### [id number] # ### KIRSTEN Datalink [facility] [place] [address] Sodium [Moles/Vol] 135 136-145 mEq/L Low 09-26-2018 [facility] (30057) Comment: Performed By: #### [id number] # ### KIRSTEN Datalink [facility] [place] [address] Urea nitrogen [Mass/Vol] 20 6-23 mg/dL Normal 09-26 [facility] (00 000) Comment: Performed By: #### [id number] # ### KIRSTEN Datalink [facility] [place] [address] Urea nitrogen/Creatinine 25.0 5.4-30.0 ratio Normal 09-26 [facility] [Mass ratio] [facility] (83396) Comment: Performed By: #### [id number] # ### KIRSTEN Datalink [facility] [place] [address] cbc w/ auto diff on 2018-09-26 Erythrocyte distribution 13.9 11.5-14.5 % Normal 09-26 [facility] width (RBC) [Ratio] [facility] System (33661) Comment: Performed By: #### [id number] # ### KIRSTEN RemHemo [address] [place] [address] Hematocrit (Bld) [Volume 40.9 36.0-48.0 % Normal 09-26 [facility]] [facility] (67730) Comment: Performed By: #### [id number] # ### KIRSTEN RemHemo [address] [place] [address] Hemoglobin (Bld) 13.3 12.0-16.0 G/DL Normal 09-26-2018 [facility] [Mass/Vol] [facility] (23546) Comment: Performed By: #### [id number] # ### KIRSTEN [address] [place] [address] MCH (RBC) [Entitic mass] 27.2 27.0-31.0 pg Normal 09-26 [facility] (00 000) Comment: Performed By: #### [id number] # ### KIRSTEN KavitaHemo [address] [place] [address] MCHC (RBC) [Mass/Vol] 32.4 33.0-37.0 G/DL Low 09-27-19 19 [facility] (00 ) Comment: Performed By: #### [id number] # ### KIRSTEN [address]emo [address] [place] [address] MCV (RBC) [Entitic vol] 83.9 78.0-100.0 fL Normal 09-26 [facility] (38141) Comment: Performed By: #### [id number] # ### KIRSTEN [address] [place] [address] Platelet mean volume 8.0 7.4-11.0 fL Normal 9 [facility] (Bld) [Entitic vol] System (76309) Comment: Performed By: #### [id number] # ### KIRSTENChioma [address] [place] [address] Platelets (Bld) [#/Vol] 370 130-400 E3/mcL Normal 2018 [facility] (07735) Comment: Performed By: #### [id number] # ### KIRSTEN RemHemo [address] [place] [address] RBC (Bld) [#/Vol] 4.87 3.90-5.40 E6/mcL Normal 09-26-2018 [facility] (00 000) Comment: Performed By: #### [id number] # ### KIRSTEN RemHemo [address] [place] [address] WBC (Bld) [#/Vol] 10.3 3.6-11.0 E3/mcL Normal 09-26-2018 [facility] () Comment: Performed By: #### [id number] # ### KIRSTEN [address] [address] auto diff on 7-03 Basophils (Bld) [#/Vol] 0.1 0.0-0.2 E3/mcL Normal 2018 [facility] tem (13830) Comment: Order Comment: Order Added b y Discern Expert. Performed By: #### [id number] # ### KIRSTEN [address] [address] Basophils/100 WBC (Bld) 0.8 0.0-2.0 % Normal 2018 [facility] ( 000) Comment: Order Comment: Order Added b y Discern Expert. Performed By: #### [id number] # ### KIRSTEN [address] [address] Eos Absolute 0.3 0.0-0.7 E3/mcL Normal 09-26-2018 [facility] (33863) Comment: Order Comment: Order Added b y Discern Expert. Performed By: #### [id number] # ### KIRSTEN [address] [address] Eosinophils/100 WBC (Bld) 3.3 0.0-11.0 % Normal [facility] (00 000) Comment: Order Comment: Order Added b y Discern Expert. Performed By: #### [id number] # ### KRISTEN [address] [address] Lymphocytes (Bld) [#/Vol] 2.6 1.2-3.4 E3/mcL Normal [facility] (28623) Comment: Order Comment: Order Added b y Discern Expert. Performed By: #### [id number] # ### KIRSTEN [address] [address] Lymphocytes/100 WBC (Bld) 25.6 20.0-55.0 % Normal [facility] (52954) Comment: Order Comment: Order Added b y Discern Expert. Performed By: #### [id number] # ### KIRSTEN [address] [place] [address] Deuel Absolute 0.9 0.0-0.7 E3/mcL High 09-26-2018 [facility] (60356) Comment: Order Comment: Order Added tadeo y Discern Expert. Performed By: #### [id number] # ### KIRSTEN Parekho [facility] [place] [address] Monocytes/100 WBC (Bld) 9.2 0.0-10.0 % Normal 2018 [facility] (00 000) Comment: Order Comment: Order Added b y Discern Expert. Performed By: #### [id number] # ### KIRSTEN WallsHemo [facility] [place] [address] Neutro Absolute 6.3 1.4-6.5 E3/mcL Normal 09-26-2018 [facility] (53539) Comment: Order Comment: Order Added b y Discern Expert. Performed By: #### [id number] # ### KIRSTNE WallsHemo [address] [place] [address] Neutro Auto 61.1 37.0-75.0 % Normal 09-26-2018 [facility] (59035) Comment: Order Comment: Order Added b y Discern Expert. Performed By: #### [id number] ### KIRSTEN WallsHemo [address] [place] [id number] tsh on 2018-06-28 TSH Qn 1.28 0.30-5.60 mcIU/mL Normal 06-28-2018 [facility] ([id number]) Comment: Performed By: #### [id number] # ### KIRSTEN [employer] [address] [place] [id number] [email or web address] on 4 HbA1c (Bld) [Mass fraction] 8.2 4.0-6.3 % High [facility] (00 000) Comment: Performed By: #### [id number] #### KIRSTEN Chemistry Manual Subsec tion [address] [place] [id number] free t4 on Free T4 [Mass/Vol] 1.14 0.58-1.64 ng/dL Normal 06-28-2018 [facility] (00 000) Comment: Performed By: #### [id number] # ### KIRSTEN [employer] [address] [id number] free t3 on Free T3 [Mass/Vol] 3.4 2.5-3.9 pg/mL Normal 06-28-2018 [facility] (00 000) Comment: Performed By: #### [id number] #### KIRSTEN [employer] [address] [place] [address] us thyroid on 04-20 US Thyroid Exam Date/Time: Normal 04-20-2018 [facility] 04/20/2018 12:09 [facility] ([id number]) Reason for Exam: HYPOTHYROIDISM E03.9 HISTORY THYROID SURGERY;Other (please s pecify) Report STUDY: US Thyroid; 04/20/2018 12:09 pm INDICATION: Hypothyroidism, follow-up; p revious right hemithyroidectomy secondary to goiter. No history of thyroid carcinoma is reported. COMPARISON: None. ACCESSION NUMBER(S): [id number] ORDERING CLINICIAN: Peggy Santana TECHNIQUE: Grayscale and color Doppler ultrasound of the thyroid. FINDINGS: Heterogenous hypoechoic left thyroid remnant.. Increased vascularity throughout the left thyroid remnant on color Doppler interrogation. No left lobe nodules are demonstrated. RIGHT LOBE: Status post right hemithyroidectomy. LEFT LOBE: 3.6 x 1.7 x 1.8 cm ISTHMUS: 0.4 cm IMPRESSION: The appearance of the left l obe remnant is consistent with a nonspecific thyroiditis in the appropriate clinical setting. No thyroid nodules are demonst rated. FINAL REPORT Dictated: 04/20/2018 12:21 pm Brendon Sims MD Signed (Electronic Signature): 04/20/2018 12:21 pm Signed by: Brendon Smis MD Technologist: BS [email or web address] on 2018-03-28 2 HbA1c (Bld) [Mass fraction] 8.7 4.0-6.3 % High [facility] (00 000) Comment: Performed By: #### [id number] #### KIRSTEN Chemistry Manual Subsec tion [address] [id number] Vital Signs Vital Sign Description Value / Unit Date Location The following section is limited to 5 en tries per type and includes entries from the following time range: 20190110 - [id number] 9. BMI (Body Mass Index) 32.47 kg/m2 03-14-2019 [facility] (90786) BMI (Body Mass Index) 31.53 kg/m2 02-05-[address] [facility] (68970) BMI (Body Mass Index) 32.82 kg/m2 01-10-2019 [facility] (90719) Body weight 80.51 kg 03-14-2019 [facility] (93006) Body weight 80.74 kg 02-05-[address] [facility] (4321 5) Body weight 81.39 kg 01-10-2019 [facility] (93697) BP Diastolic 62 mm[Hg] 03-14-2019 [facility] (83686) BP Diastolic 80 mm[Hg] 01-10-2019 [facility] (79058) BP Systolic 132 mm[Hg] 03-14-2019 [facility] (31142) BP Systolic 124 mm[Hg] 01-10-2019 [facility] (61173) BSA (Body Surface Area) 1.82 m2 03-14-2019 [facility] (71063) BSA (Body Surface Area) 1.83 m2 01-10-2019 [facility] (40135) Height 157.48 cm 03-14-2019 [facility] (76676) Height 160 cm 02-05-[address] [facility] (4321 5) Height 157.48 cm 01-10-2019 [facility] (78296) Pulse (Heart Rate) 104 /min 03-14-2019 [facility] (67819) Pulse (Heart Rate) 88 /min 01-10-2019 [facility] (16528) Encounters Date Type Reason Provider Location 02-05-2019 - [facility] outpatient [facility] 02-05-2019 new 30 minutes gonarthrosis, Sacha [facility] Comment: Primary osteoarthritis of vimal th knees 03-14-2019 Patient encounter Disease [facility] (57962 ) 02-05-2019 - Patient encounter PEGGY SANTANA [facility] 02-05-2019 procedure SACHA BEYER Ambulatory (00 000) [facility] PEGGY Jolley MAX 01-10-2019 Patient encounter Disease -[facility] Practice (68172 ) 01-09-2019 Patient encounter Disease [facility] Practice (52934 ) 01-07-2019 Patient encounter Disease [facility] (4480 5) 01-04-2019 Patient encounter Disease [facility] (4480 5) 01-01-2019 Patient encounter Disease [facility] (4480 5) 12-28-2018 Patient encounter Disease [facility] (4480 5) Procedures Procedure Name Date Provider Location Follow-up visit 02-25-2020 [facility] (0 0000) Echocardiography 12-10-2019 [facility] (27342) Follow-up visit 11-25-2019 [facility] (0 0000) Follow-up visit 09-19-2019 [facility] (0 0000) Follow-up visit 08-16-2019 [facility] (0 0000) Follow-up visit 03-14-2019 [facility] (0 0000) Hemoglobin glycosylated a1c 01-04-2019 [facility] (98932 ) Amputation of hand, thumb or finger [facility] (35676 ) Colonoscopy [facility] (06434 ) Destructive procedure [facility] (32510 ) Hysterectomy [facility] (98323 ) Thyroidectomy [facility] (78279 ) Plan of Treatment Plan Description Date Location SEQUENTIAL INFLUENZA SEQUENTIAL INFLUENZA 11-25-2018 [facility] (60210) VACCINE (#1) VACCINE (#1) PNEUMOCOCCAL VACCINE AGE PNEUMOCOCCAL VACCINE AGE 0407-01-[address] [facility] (47193) 65+ (1 of 2 - PCV13) 65+ (1 of 2 - PCV13) Zoster Vaccines (1 of 2) Zoster Vaccines (1 of 2) [address] [facility] (13367) Wellness Visit Wellness Visit [address] [facility] (4321 5) DEPRESSION SCREENING DEPRESSION SCREENING 1950 [facility] (38386) (PHQ9) (PHQ9) Falls Risk Assessment Falls Risk Assessment 1950 [facility] (17014) HEPATITIS C SCREENING HEPATITIS C SCREENING 1950 [facility] (18379) Colorectal Cancer Colorectal Cancer [address] [facility] ( 85220) Screening: Colonoscopy Screening: Colonoscopy Dexa Scan Dexa Scan [address] [facility] (4321 5) Mammogram Mammogram [address] [facility] (4321 5) TETANUS EVERY 10 YR TETANUS EVERY 10 YR 1950 [facility] (47309) NEGATED: Highlighted row Planned Goals not [facility] has been ruled out! documented [facility] (45035 ) no information [facility] (57436 ) The following information is from the original human readable content Name Dates Details Planned Observations Planned Goals not documented Planned Encounters Appointment; Peggy Santana APRN-CNP DNP On: 9 14:30 Name Dates Details Planned Observations Planned Goals not documented Planned Encounters Appointment; Peggy Santana APRN-CNP DNP On: 0 15:00 Payers Payer Name Policy Number Location [place], [place] xxxxxxxxxxx [facility] ([id number]) MEDICARE [id number] [facility] (16054) [place] [id number] [facility] ([id number]) [id number] [facility] (83191) The following information is from the original human readable contentNo Payer Records FoundNo Payer Records FoundNo Payer Records FoundNo Payer Records FoundNo Payer Records FoundNo Payer Records FoundNo Payer Records FoundNo Payer Records FoundNo Payer Records Found Social History Type Social History Date Location Description NEGATED: Highlighted row - [facility] (62775 ) Tobacco smoking status Former smoker 02-05-2019 [facility] (23246) NHIS Sex Assigned At Not on file [facility] (05599) The following information is from the original human readable contentNo Social History Records FoundNo Social History Records FoundNo Social History Records FoundNo Social History Records FoundNo Social History Records FoundNo Social History Records FoundNo Social History Records FoundNo Social History Records FoundNo Social History Records FoundNo Social History Records FoundNo Social History Records Found Functional Status Status Assessment Result Location NEGATED: Highlighted Functional status health Rehab rowFunctional performance issues are not documented [facility] (78319) Mental Status Status Assessment Result Location NEGATED: Highlighted Cognitive status health Rehab Servic [facility] rowCognitive function issues are not documented [facility] (6 3330) [Interpretation] Family History No Family History Records Found Grandparent Name Dates Details Family history of diabetes mellitus (V18.0, Z83.3) Status: Active Mother Name Dates Details Family history of diabetes mellitus (V18.0, Z83.3) Status: Active Father Name Dates Details Family history of diabetes mellitus (V18.0, Z83.3) Status: Active Grandparent Name Dates Details Family history of diabetes mellitus (V18.0, Z83.3) Status: Active Mother Name Dates Details Family history of diabetes mellitus (V18.0, Z83.3) Status: Active Father Name Dates Details Family history of diabetes mellitus (V18.0, Z83.3) Status: Active Grandparent Name Dates Details Family history of diabetes mellitus (V18.0, Z83.3) Status: Active Mother Name Dates Details Family history of diabetes mellitus (V18.0, Z83.3) Status: Active Father Name Dates Details Family history of diabetes mellitus (V18.0, Z83.3) Status: Active Grandparent Name Dates Details Family history of diabetes mellitus (V18.0, Z83.3) Status: Active Mother Name Dates Details Family history of diabetes mellitus (V18.0, Z83.3) Status: Active Father Name Dates Details Family history of diabetes mellitus (V18.0, Z83.3) Status: Active Grandparent Name Dates Details Family history of diabetes mellitus (V18.0, Z83.3) Status: Active Mother Name Dates Details Family history of diabetes mellitus (V18.0, Z83.3) Status: Active Father Name Dates Details Family history of diabetes mellitus (V18.0, Z83.3) Status: Active Summary Purpose Advance Directives No Advanced Directives Records Found Documents on File Type Date Recorded Patient Operator Engineer Explanati on Advance Directives and Living Will History of Present Illness Sacha Bonner MD - 02/05/2019 4:59 PM EST Dictation on: 02/05/2019 5:03 PM by: SACHA BONNER [[id number]] documented in this encounter Assessments Diagnosis Primary osteoarthritis of both knees Additional Source Comments FOR RECORDS PERTAINING TO PATIENTS WHO ARE OR HAVE BEEN ENROLLED IN A CHEMICAL DEPENDENCY/SUBSTANCE ABUSE PROGRAM, SOME INFORMATION MAY BE OMITTED. This clinical summary was aggregated from multiple sources. Caution should be exercised in using it in the provision of clinical care. This summary normalizes information from multiple sources, and as a consequence, information in this document may materially changethe coding, format and clinical context of patient data. In addition, data may be omittedin some cases. CLINICAL DECISIONS SHOULD BE BASED ON THE PRIMARY CLINICAL RECORDS. [facility] provides no warranty or guarantee of the accuracy or completeness of information in this document. UNRECOGNIZED CONTENT PROVIDED BELOW FOR UNRECOGNIZED SECTION INFORMATION SOURCE DATE CREATED AUTHOR AUTHOR'S ORGANIZATIO N 01/08/2019 [facility] DATE CREATED AUTHOR AUTHOR'S ORGANIZATIO N [facility] DATE CREATED AUTHOR AUTHOR'S ORGANIZATIO N 02/02/2019 [facility] DATE CREATED AUTHOR AUTHOR'S ORGANIZATIO N 12/11/2019 [facility] DATE CREATED AUTHOR AUTHOR'S ORGANIZATIO N 02/25/2020 [facility] DATE CREATED AUTHOR AUTHOR'S ORGANIZATIO N 02/25/2020 [facility] UNRECOGNIZED CONTENT PROVIDED BELOW FOR UNRECOGNIZED SECTION Reason for Visit Reason Comments Pain Status Reason Specialty Diagnoses / Referred By Referred To Procedures Contact Contact Closed Sports Medicine Diagnoses Pain in both knees, unspecified chronicity Peggy Santana, Kobi Bonner CNP, MD [address] [place], [place] [phone] Phone:
== END 2020-02-10 11:45 | disposition home or self-care (01) ==
LOC: CLSP 08:30
PROVIDERS: PCP Nurse Practitioner Family; Referring Provider Internal Medicine Cardiovascular Disease; Visit Provider Internal Medicine Cardiovascular Disease
DX: I35.0 Nonrheumatic aortic (valve) stenosis (principal); I10 Essential (primary) hypertension; E11.40 Type 2 diabetes mellitus with diabetic neuropathy, unspecified; E78.5 Hyperlipidemia, unspecified; E03.9 Hypothyroidism, unspecified; Z87.19 Personal history of other diseases of the digestive system; Z79.4 Long term (current) use of insulin; Z79.899 Other long term (current) drug therapy
CPT/HCPCS: 36415; 71046; 80048; 85025; 93458; 99152; 99153; J7040; Q9967; C1769; C1894

== ENCOUNTER 2021-04-26 16:45 | Outpatient (RCR) | payer MEDICARE, OTHER, SELFPAY ==
[2021-04-26 17:43] LABS: Color, Urine Yellow (Yellow); Glucose, Dipstick Normal (Normal); Ketone-Dipstick 5 mg/dl (Negative); Leukocyte Esterase-Dipstick Negative /ul (Negative); Nitrite-Dipstick Negative (Negative); Occult Blood-Urine Negative /ul (Negative); Protein-Dipstick 15 mg/dl (Negative); Specific Gravity, Urine 1.025 (1.002-1.030); Urine Bilirubin Dipstick Negative (Negative); Urine Clarity Clear (Clear); Urine Urobilinogen Normal (Normal)
== END 2021-04-26 18:00 | disposition home or self-care (01) ==
LOC: HHLAB 16:45
PROVIDERS: PCP Nurse Practitioner Family; Visit Provider Orthopaedic Surgery
DX: N32.89 Other specified disorders of bladder (principal); R10.2 Pelvic and perineal pain
CPT/HCPCS: 81002; 87086

== ENCOUNTER → 2022-10-04 | Outpatient (CLI) | payer MEDICARE, OTHER, SELFPAY ==
[2022-10-04 16:07] LABS: Anion Gap 4 (5-15); BUN 15 mg/dL (7-18); BUN/Creat Ratio 19.2 RATIO (10-20); Chloride 108 mmol/L (98-107); Creatinine, Serum 0.78 mg/dL (0.55-1.02); EST Glomerular Filtration Rate 77 mL/min (>60); Est Glom Filt Rate - Afr Amer 93 mL/min (>60); Glucose 167 mg/dL (74-106); Sodium Level 138 mmol/L (136-145)
== END | disposition home or self-care (01) ==
LOC: LAB 14:40
PROVIDERS: PCP Nurse Practitioner Family; Referring Provider Internal Medicine Cardiovascular Disease; Visit Provider Internal Medicine Cardiovascular Disease
DX: R01.1 Cardiac murmur, unspecified (principal); I10 Essential (primary) hypertension
CPT/HCPCS: 36415; 80048; 84443

== ENCOUNTER → 2022-10-14 | Outpatient (CLI) | payer MEDICARE, OTHER, SELFPAY ==
--- NOTE | 2022-10-14 10:45 | ECHOCS_ITS ---
Reason For Study: MURMUR Procedure This was a 2D Doppler, Color Flow transthoracic echocardiogram. The study was technically difficult. Contrast injection was performed. Exam performed portable in patient room. Left Ventricle Normal LV size. Left ventricular systolic function is normal. The estimated ejection fraction is 65 %. Stage 1 diastolic dysfunction. No regional wall motion abnormalities noted. Right Ventricle Normal RV size. Normal systolic function. Atria The left atrium is not well visualized. The right atrium is not well visualized. Mitral Valve Mitral valve not well visualized. Tricuspid Valve Normal tricuspid valve. Aortic Valve Trisinus/trileaflet aortic valve. Mild focal aortic valve calcification. Peak aortic valve gradient 65 mmHg. Mean aortic valve gradient 45 mmHg. Moderate to severe aortic stenosis. Pulmonic Valve The pulmonic valve is not well visualized. Great Vessels Normal aortic root. Pericardium/Pleural No pericardial effusion. Medication 22 gauge I.V. with prn adaptor inserted into right arm. Diluted definity 2ml given slow IV push to enhance endocardial definition. MMode/2D Measurements & Calculations LVIDd: 5.0 cm IVSd: 0.97 cm LVOT diam: 2.0 cm LVIDs: 2.8 cm LVPWd: 0.94 cm FS: 45.1 % LVOT area: 3.1 cm2 Ao root diam: 3.3 cm LAV(MOD-bp): 33.8 ml LA A4 area: 18.4 cm2 LAV(MOD-bp) Indexed: 17.6 ml/m2 LAV(MOD-sp2): 19.3 ml LAV(MOD-sp4): 44.5 ml LA dimension(2D): 3.6 cm TAPSE: 2.5 cm RA A4 area: 12.8 cm2 Time Measurements MV dec time: 0.06 sec Doppler Measurements & Calculations MV E max benjie: 96.7 cm/sec Lat Peak E' Benjie: 8.0 cm/sec Med Peak E' Benjie: 11.4 cm/sec MV A max benjie: 126.0 cm/sec E/E' lat: 12.1 E/E' med: 8.4 MV E/A: 0.77 MV V2 max: 85.9 cm/sec MV dec slope: 1771 cm/sec2 Ao V2 max: 403.9 cm/sec MV max P.2 mmHg Ao max P.3 mmHg MV V2 mean: 46.3 cm/sec Ao V2 mean: 320.8 cm/sec MV mean P.2 mmHg Ao mean P.7 mmHg MV V2 VTI: 10.7 cm Ao V2 VTI: 91.6 cm MVA(VTI): 8.6 cm2 AV (velocity ratio): 0.32 MASSIEL(I,D): 1.0 cm2 MASSIEL(V,D): 0.85 cm2 LV V1 max: 109.1 cm/sec SV(LVOT): 92.3 ml PA V2 max: 107.2 cm/sec LV V1 max P.8 mmHg PA V2 mean: 67.7 cm/sec LV V1 mean P.1 mmHg LV V1 mean: 81.2 cm/sec LV V1 VTI: 29.3 cm ECHO/Echo Complete W/ Contrast Interpretation Summary Normal LV size. Left ventricular systolic function is normal. The estimated ejection fraction is 65 %. Stage 1 diastolic dysfunction. Mean aortic valve gradient 45 mmHg. Moderate to severe aortic stenosis. Compared to the previous there has been a significant worsening in the aortic v alve gradient. Ordering Physician: Elder Whalen Referring Physician: Elder Whalen Performed By: Ruthie Peralta RCS
== END | disposition home or self-care (01) ==
PROVIDERS: PCP Physician Assistant; Referring Provider Internal Medicine Cardiovascular Disease; Visit Provider Internal Medicine Cardiovascular Disease
DX: I35.0 Nonrheumatic aortic (valve) stenosis (principal); I47.1 Supraventricular tachycardia
CPT/HCPCS: 93225; 93226; 93306; Q9957; A4216; C8929

== ENCOUNTER → 2022-11-01 | Outpatient (CLI) | payer MEDICARE, OTHER, SELFPAY ==
--- NOTE | 2022-11-01 08:45 | ECHOTEE_ITS ---
Reason For Study: AORTIC VALVE DISEASE Medication MUSA probe 6VT-D (SN [id number]) passed without difficulty. No complications were noted. Cetacaine Topical Bucklin given X3 orally. Versed 2 mg given slow IVP. Fentanyl 50 mcg given slow IVP. Performed a rapid injection of agitated mix of 9 cc saline and 1cc air to assess for atrial septal defect. Left Ventricle Normal LV size. Left ventricular systolic function is normal. The estimated ejection fraction is 60 %. No regional wall motion abnormalities noted. Right Ventricle Normal right ventricle. Atria Normal atrial septum. Bubble contrast study negative for right to left interatrial shunt. Normal left atrium. No thrombus is detected in the left atrial appendage. Normal right atrium. Prominent eustachian valve. Mitral Valve Normal mitral valve. Mild (1+) eccentric mitral valve insufficiency. Tricuspid Valve Normal tricuspid valve. Mild (1+) tricuspid valve insufficiency. Aortic Valve Trisinus/trileaflet aortic valve. Moderate focal aortic valve calcification. Severe aortic stenosis. Pulmonic Valve Normal pulmonic valve. Vessels Normal aortic root. Normal arch. The pulmonary artery is normal size. Normal pulmonary veins. MMode/2D Measurements & Calculations LVOT diam: 2.0 cm Aortic Valve Planimetry: 0.75 cm2 LVOT area: 3.0 cm2 ECHO/Echo Transesophageal (MUSA) Interpretation Summary Normal LV size. Left ventricular systolic function is normal. The estimated ejection fraction is 60 %. Moderate focal aortic valve calcification. Severe aortic stenosis. Ordering Physician: Toni Avelar Referring Physician: Toni Avelar Performed By: Marielle Way, EUGENE, RVT
== END | disposition home or self-care (01) ==
LOC: CVS 08:45
PROVIDERS: PCP Physician Assistant; Referring Provider Nurse Practitioner Family; Visit Provider Nurse Practitioner Family
DX: R01.1 Cardiac murmur, unspecified (principal); I35.0 Nonrheumatic aortic (valve) stenosis
CPT/HCPCS: 93312; 93320; 93325; J7040; A4216

== ENCOUNTER → 2022-12-05 | Day surgery (SDC) | payer MEDICARE, OTHER, SELFPAY ==
--- NOTE | 2022-11-07 14:41 | PCM.HP.BLA ---
History and Physical Date of Admission: 12/05/22 JOSIANE OSULLIVAN, is a 72 F who presents to the cardiac laboratory director for a cardiac catheterization. She has a history of paroxysmal atrial tachycardia status post AV ty ablation in 2008.? She had a dual AV ty pathway.? She has a history of hypertension and diabetes and aortic sclerosis.? You do remember she underwent stress testing in April of 2018 because she has been having some chest discomfort.? She did undergo a catheterization in January 2020 which demonstrated nonobstructive coronary artery disease with mild mid LAD stenosis. Her echocardiogram demonstrated an ejection fraction of 60% with a peak mean gradient of 26 over 16 mmHg across the aortic valve. She denies chest, arm, jaw, or neck discomfort. She denies symptoms of shortness of breath with exertion, shortness of breath at rest, orthopnea, PND, sudden weight gain, or bilateral lower extremity edema. She denies chronic cough. She unfortunately continues to complain of palpitations and then also thinks that her murmur may be louder. She has also had mild chest tightness unchanged from her heart catheterization time 2 years ago. She wants her murmur evaluated. She denies lightheadedness, dizziness, near syncope, or syncopal episodes. She denies claudication issues. She denies fever or chills. She denies blood in urine, blood in stool, or epistaxis. She denies myalgia. She denies unexplainable fatigue. Her exercise tolerance is stable though minimal on account of back and hip pain. Intake Vital Signs See EMR Allergies See EMR Medications See EMR [facility] Medical History Atherosclerosis of coronary artery bypass graft without angina pectoris Chest pain Chronic neck and back pain Diabetes mellitus, type II Diabetic neuropathy Diarrhea Difficulty balancing when standing Dyspnea on exertion Essential (primary) hypertension HLD (hyperlipidemia) Hypothyroidism Knee pain Nonrheumatic aortic (valve) stenosis Obesity SBO (small bowel obstruction) Shoulder pain SVT (supraventricular tachycardia) Thyroid disease Surgical History History of cardiac radiofrequency ablation (03/2008) History of hand surgery History of left heart catheterization (02/10/20) History of total hysterectomy Family History Mother DiabetesFather DiabetesOther Hypertension Social History Smoking Status: Never smoker how long ago did patient quit smokin years alcohol intake: never details: rare caffeine: No ROS Const Const: Negative for fatigue, weakness, body ache, fever(s), headache(s), chills, frequent falls, night sweats, daytime sleepiness, difficulty sleeping, excessive sweating, weight gain, weight loss, increased appetite, poor appetite, anorexia or other Eyes Eyes: Negative for blind spots, loss of peripheral vision, transient loss of vision, blurry vision, change in vision, double vision, floaters, tunnel vision or other ENT ENT: Negative for headache(s) Cardio Chest Pain: Yes Frequency: daily Character: tightness Onset: at rest and exercise Edema: Bilateral Resp Respiratory: Negative for SOB with activity, SOB at rest, SOB orthopnea\SOB lying down, Cough, Coughing up blood/hemoptysis, chest congestion, pain on inspiration, snoring, stridor, wheezing, crackles, paroxysmal nocturnal dyspnea or other GI GI: Negative nausea, vomiting, heartburn, constipation, belching, bloating, cramping, vomiting blood/hematemesis, bright, red blood in stools, black,tarry stools, loose stools, Difficulty Swallowing or other Neuro Neuro: Negative for frequent falls, headache(s), weakness, blurry vision or double vision Endo Endo: Negative for fatigue or excessive sweating Cardiology Exam Const Appearance: cooperative, healthy appearing, comfortable and no acute distress Nutritional Appearance: well nourished and obese Orientation: alert, awake and oriented x3 Head Head: normal to inspection Ears: hearing grossly normal bilaterally Nose: external nose normal Face and Sinus: face symmetric Mouth: oral mucosae normal Eyes General: appearance normal, both eyes and all related structures Eyelids: eyelids normal EOM: EOM intact bilaterally Neck Neck: normal visual inspection and no JVD Carotids: normal carotid upstroke Chest Chest inspection: normal inspection of the chest, symmetric chest movement and normal respiratory effort; Negative cough Auscultation: Bilateral: Clear to Auscultation Cardio Rate: regular rate Rhythm: regular rhythm Heart sounds: S1 normal, S2 normal and murmur; Negative rub or gallop Murmur: Grade 2/6, soft, radiates to carotids and NASEEM loudest primary aortic area GI GI: normal to inspection and obese Neuro General: patient alert, patient awake, patient oriented x3 and CN's II-XI intact bilaterally Skin Skin: no rashes or lesions noted Extremities Pulses: Normal: Right Posterior Tibial Pulse, Left Posterior Tibial Pulse, Right Radial Pulse and Left Radial Pulse Lower Extremity Edema: None: Bilateral Psych Psychological: normal affect Supplemental Info Supplemental Information Echocardiogram 10/14/2022: Interpretation Summary Normal LV size. Left ventricular systolic function is normal. The estimated ejection fraction is 65 %. Stage 1 diastolic dysfunction. Mean aortic valve gradient 45 mmHg. Moderate to severe aortic stenosis. Compared to the previous there has been a significant worsening in the aortic valve gradient. Transesophageal echocardiogram 11/01/2022: Interpretation Summary Normal LV size. Left ventricular systolic function is normal. The estimated ejection fraction is 60 %. Moderate focal aortic valve calcification. Severe aortic stenosis. Assessment and Plan Assessment and Plan (1) Nonrheumatic aortic (valve) stenosis: Status: Chronic Plan: Patient has a history of nonrheumatic aortic valve stenosis. Her echocardiogram from 10/14/2022 demonstrated an ejection fraction of 60%, and moderate to severe aortic stenosis, which compared to the previous there has been a significant worsening in the aortic valve gradient. Her MUSA from 11/01/2022 demonstrated severe aortic valve stenosis. She will proceed with a cardiac catheterization to further assess this. Depending on results, further recommendations will be made. (4) CAD (coronary artery disease): Status: Acute Qualifiers: Coronary Disease-Associated Artery/Lesion type: [place] artery [place] vs. transplanted heart: inupiat heart Associated angina: without angina Qualified Code(s): I25.10 - Atherosclerotic heart disease of inupiat coronary artery without angina pectoris Plan: She does have mild coronary artery disease. This is based on her catheterization in 2019 with an ostial LAD with 40% stenosis mid LAD of 50% stenosis luminal irregularities on the circumflex artery and right coronary artery and mildly calcified aortic valve. We will continue with aggressive risk factor modification.
--- NOTE | 2022-11-22 12:30 | RAD_ITS ---
INDICATION: Pre-operative EXAMINATION/TECHNIQUE: X-RAY - XR Chest 2 Views COMPARISON: 01/31/2020. FINDINGS: LINES/DEVICES: None. LUNGS: No consolidation, edema or effusion. No pneumothorax. MEDIASTINUM AND CARDIOVASCULAR STRUCTURES: Cardiac silhouette is borderline enlarged. Central airways and mediastinal contour are unremarkable._Disease of aorta. BONES AND SOFT TISSUES: Multilevel degenerative disease of the spine. RAD/Chest PA and Lateral IMPRESSION: No acute cardiac pulmonary disease. Electronically Signed: Stacey Aponte, at 16:24 EDT ,
[2022-11-22 13:01] LABS: Absolute Lymphocyte Count 2.87 X10^3/uL (0.83-4.51); Absolute Neutrophil Count 7.4 X10^3/uL (2.0-7.7); Basophil# 0.06 X10^3/uL; Basophil% 0.5 % (0-1); Eosinophil# 0.21 X10^3/uL; Eosinophils% 1.8 % (0-5); Hematocrit 44.3 % (37-47); Hemoglobin 13.8 g/dL (12.0-15.0); Lymphocyte # 2.87 X10^3/ul (0.83-4.51); Lymphocyte % 24.7 % (19-41); Mean Corp Hgb Conc 31.2 g/dL (32-36); Mean Corpuscular Hgb 28.5 pg (27.0-32.0); Mean Corpuscular Volume 91.3 fL (81-99); Mean Platelet Vol. 9.2 fl (6.2-12.0); Monocyte# 1.06 X10^3/uL; Monocyte% 9.1 % (0-10); NRBC Flagged by Analyzer 0 % (0-5); Neutrophil # 7.36 X10^3/uL (2.7-7.7); Neutrophil % 63.2 % (47-70); Platelet Count 332 K/mm3 (150-450); RBC Distribution Width SD 43.8 fl (35.1-43.9); Red Blood Count 4.85 M/mm3 (4.2-5.4); White Blood Count 11.6 K/mm3 (4.4-11.0)
[2022-11-22 13:21] LABS: Anion Gap 5 (5-15); BUN 15 mg/dL (7-18); BUN/Creat Ratio 21.9 RATIO (10-20); Calcium,Total 8.9 mg/dL (8.5-10.1); Chloride 105 mmol/L (98-107); Creatinine, Serum 0.68 mg/dL (0.55-1.02); EST Glomerular Filtration Rate 90 mL/min (>60); Est Glom Filt Rate - Afr Amer 109 mL/min (>60); Glucose 119 mg/dL (74-106); Potassium 4.2 mmol/L (3.5-5.1); Sodium Level 138 mmol/L (136-145)
[2022-12-02 09:33] VITALS: BMI 34.5
--- NOTE | 2022-12-05 08:25 | CL.D_ITS ---
Patient Name: JOSIANE OSULLIVAN Study Date: 12/05/2022 Performing: Elder Whalen MD Ht: 63 inches 160.02 cm : 1950 Wt: 195 lbs 88.45 kg Age: 72 Gender: female BSA: 1.91 PROCEDURE(S) PERFORMED [id number])[facility] CLINICAL PROFILE AND INDICATIONS Indications: Valvular Disease Heart Failure: None Stress/Imaging Stress/Image Study Performed: No CAD Presentations: Other: sob CONCLUSIONS Moderate to severe aortic valve stenosis with a mean gradient of 45 mmHg by echocardiogram and preserved ejection fraction, mild ostial LAD and mild to moderate mid LAD unchanged from before. RECOMMENDATIONS Will refer for evaluation for possible TAVR. DESCRIPTION OF PROCEDURE The patient arrived to the procedure lab. The risks and benefits of the procedure as well as a full description of our services here and current unavailability of surgical backup were fully explained to the patient and/or their significant other prior to the catheterization. The Timeout was completed, verifying the correct patient and procedure. The patient's procedural site was prepped and draped in the usual fashion. Local anesthetic was given subcutaneously to right radial region with Lidocaine 2%. Using a modified Seldinger technique, arterial access was obtained via the right radial artery, a 6Fr sheath was inserted. Left Coronary Artery selective angiography was performed in multiple views using a 5 Fr. 4.0 [place] catheter. Right Coronary Artery selective angiography was then performed in multiple views using a 5 Fr. 4.0 [place] catheter. Right Coronary Artery selective angiography was then performed in multiple views using a 5 Fr. JR 5 catheter. LV to AO pullback pressures were then recorded.The arterial sheath was pulled and a TR Band was applied for hemostasis CORONARY ANGIOGRAPHY DOMINANCE: Right Dominant LEFT HEART ASSESSMENT Left Ventricular Ejection Fraction: by Echo 60 % Normal LV wall motion Normal Left Ventricular systolic function LEFT MAIN: Angiographically normal LEFT ANTERIOR DESCENDING ARTERY: OSTIAL LAD: 40 % Stenosis MID LAD: 50 % Stenosis CIRCUMFLEX ARTERY: No significant disease noted RIGHT CORONARY ARTERY: No significant disease noted VALVE FINDINGS: Aortic Valve Calcification - moderate Aortic Valve Stenosis - severe COMPLICATIONS No Complications PROCEDURE MEDICATIONS Versed 1 mg IV Fentanyl 50 mcg IV Versed 1 mg IV Oxygen: 2 L/min via nasal cannula Heparin given IA 12/05/2022 07:58:00 Verapamil 2.5mg, 3000 units of Heparin given IA 12/05/2022 07:58:00 SUMMARY OF HEMODYNAMIC DATA Time AIR REST ECG 07:15:04 AO 127/65 (94) SA 08:09:23 AO 160/19 (81) 08:16:39 LV 155/18, 22 08:16:49 LV 154/18, 22 08:17:02 LVp 154/17, 21 08:17:11 AOp 121/68 (93) 08:17:18 Signed By Elder Whalen MD On 12/05/2022 08:24:45 Elder Whalen MD
== END | disposition home or self-care (01) ==
PROVIDERS: Nurse Practitioner Family; PCP Physician Assistant; Referring Provider Internal Medicine Cardiovascular Disease; Visit Provider Internal Medicine Cardiovascular Disease
DX: I35.0 Nonrheumatic aortic (valve) stenosis (principal); E11.40 Type 2 diabetes mellitus with diabetic neuropathy, unspecified; R06.02 Shortness of breath; E78.5 Hyperlipidemia, unspecified; I25.10 Atherosclerotic heart disease of native coronary artery without angina pectoris; I10 Essential (primary) hypertension
CPT/HCPCS: 36415; 71046; 80048; 85025; 93454; 99152; 99153; J7040; Q9967; C1769; C1894

== ENCOUNTER → 2023-01-02 | Outpatient (CLI) | payer MEDICARE, OTHER, SELFPAY ==
[2023-01-02 10:04] LABS: BNP,B-Type NATRIURETIC PEPTIDE 38.3 pg/mL (0-100)
[2023-01-02 10:05] LABS: ALB/GLOB Ratio 0.9 RATIO (0.9-2.4); AST(SGOT) 11 U/L (15-37); Alanine Aminotransfer ALT/SGPT 27 U/L (13-56); Albumin, Serum 3.2 g/dL (3.2-5.0); Alkaline Phosphatase 93 U/L (45-117); Anion Gap 5 (5-15); BUN 14 mg/dL (7-18); BUN/Creat Ratio 22.8 RATIO (10-20); Calcium,Total 8.6 mg/dL (8.5-10.1); Chloride 108 mmol/L (98-107); Creatinine, Serum 0.61 mg/dL (0.55-1.02); EST Glomerular Filtration Rate 102 mL/min (>60); Est Glom Filt Rate - Afr Amer 123 mL/min (>60); Globulin 3.5 g/dL (2.2-4.2); Glucose 109 mg/dL (74-106); Potassium 4.1 mmol/L (3.5-5.1); Protein, Total 6.7 g/dL (6.4-8.2); Sodium Level 141 mmol/L (136-145)
== END | disposition home or self-care (01) ==
LOC: LAB 08:04
PROVIDERS: PCP Physician Assistant
DX: I35.0 Nonrheumatic aortic (valve) stenosis (principal); R06.9 Unspecified abnormalities of breathing
CPT/HCPCS: 36415; 80053; 83880

== ENCOUNTER → 2023-02-06 | Outpatient (CLI) | payer MEDICARE, OTHER, SELFPAY ==
--- NOTE | 2023-02-06 12:57 | CR.HP_ITS ---
CR - History & Physical General Arrival date:: 02/06/23 Arrival time:: 12:57 Date of Referral:: 01/30/23 Date of CR Evaluation:: 02/06/23 Referring Physician: Dr. Elder Whalen Primary Diagnosis: Heart valve replacement History of Present Cardiac Event Onset Date Heart valve replacement or repair:: Yes (01/16/23) Medications Ambulatory Orders Medication Instructions Recorded fosinopril 20 mg tablet 20 mg PO DAILY #10 tabs 09/03/19 levothyroxine 88 mcg tablet 88 mcg PO DAILY 01/30/20 metoprolol succinate 50 mg 50 mg PO DAILY 02/01/20 tablet,extended release 24 hr aspirin 81 mg tablet,delayed 81 mg PO DAILY 02/10/20 release blood sugar diagnostic #100 ea 02/27/20 hsrggvpe-eckp-eckfm acid 240 1 tab PO DAILY 07/05/21 mcg-vit K 120 [id number]-[id number] 293 tablet (Alive Men's 50 Plus Multivit (vit K)) pen needle, diabetic 32 gauge x #400 ea 07/30/21 (BD Ultra-Fine Jo-Ann Pen Needle) amlodipine 10 mg tablet 2.5 mg PO DAILY 09/02/21 atorvastatin 40 mg tablet 20 mg PO QHS 09/02/21 Trulicity 4.5 mg/0.5 mL 4.5 mg (0.5 mL) subcut QWEEK #2 mL 08/26/22 subcutaneous pen injector (dulaglutide) desipramine 75 mg tablet 75 mg PO QHS #90 tabs 10/10/22 insulin glargine 100 unit/mL (3 90 unit (0.9 mL) subcut DAILY #81 11/15/22 mL) subcutaneous pen (Lantus mL Solostar U-100 Insulin) insulin aspart U-100 100 unit/mL 36 unit (0.36 mL) subcut QAC #108 11/23/22 (3 mL) subcutaneous pen mL FreeStyle Lite Strips (blood sugar #270 ea 01/12/23 diagnostic) Allergies Allergies Sulfa (Sulfonamide Antibiotics) Adverse Reaction (Verified 01/12/23 14:16) Upset Stomach Sleep Disorder Evaluation Hx of Sleep Apnea: No Do you snore loudly (louder than talking or can be heard through closed doors)?: No Do you often feel tired/ fatigued/ sleepy during daytime?: No Has anyone observed you stop breathing during sleep?: No History of Hypertension (for STOP score): Yes STOP Results: Negative Advanced Directives Advanced Directives Power of Dump Attendant: No Living Will: No Advance Directives Information Provided: No Advance Directives on File: No DNR Order?:: No Past Medical History Covid-19 Screening Physicial Symptoms Other Clinical Concerns Exposure Risk Pertinent Comorbidities 65 years or older:: Yes Has a serious heart condition:: Yes Diabetic:: Yes Past Medical Illness Past Medical History Atherosclerosis of coronary artery bypass graft without angina pectoris I25.810 Chest pain R07.9 Chronic neck and back pain M54.2, M54.9, G89.29 Diabetes mellitus, type II E11.9 Diabetic neuropathy E11.40 Diarrhea R19.7 Difficulty balancing when standing R26.89 Dyspnea on exertion R06.09 Essential (primary) hypertension I10 HLD (hyperlipidemia) E78.5 Hypothyroidism E03.9 Knee pain M25.569 Nonrheumatic aortic (valve) stenosis I35.0 Obesity E66.9 SBO (small bowel obstruction) K56.609 Shoulder pain M25.519 SVT (supraventricular tachycardia) I47.1 Thyroid disease E07.9 Past Surgical History Past Surgical History (Updated 01/30/23 @ 14:48 by Katina Barroso) History of cardiac radiofrequency ablation (03/2008) Z98.890 RFA @ [facility] March 2008 History of hand surgery Z98.890 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 Misha Rizzo, Dr. Lauren Sparrow and Dr. Carlos Skinner at [facility] Surgical History: hysterectomy Family History Summary Family History Mother Diabetes Father Diabetes Other Hypertension Social History Smoking History Smoking Status: Former smoker Years Smokin Packs Smoked per Day: 0.5 Alcohol Use Alcohol Usage: No Substance Abuse Hx Substance Use: No Occupation Occupation (List type of work in comments):: Retired Hobbies, Recreation, Social Activities Hobbies: Reading and Other (gardening, ministry) Recreational Activities: I am able to engage in all my recreational activities Social Environment Status Marital Status: Current Living Arrangements Living Environment:: Spouse Children How many children do you have?: 2 Do any of your children live nearby?: Yes Safety Do you feel safe in your surroundings?: Yes Assistance Do you need any assistance at home?: no Review of Systems Review of Systems Hints Review of Present Symptoms: Reports Shortness of Breath with Exertion, Wound Healing, Fatigue, Heart Arrhythmia/Irregularities, Appetite - Normal and Appetite - Special Diet; Denies Shortness of Breath at Rest, PVD, Operative Discomfort, Angina, Dizziness/Lightheadedness, Sleep - Normal or Sexual Changes Pain Is Patient Pain Free?: No Pain Location: other (feet, spine, neck, shoulders) Pain Level: 08/03 Risk Factor Assessment Chief Complaint Chief Complaint: heart valve replacement Vital Signs Pulse Ox: 94 Pulse Pulse Rate: 97 Pulse Rhythm: Regular Hypertension How long have you been treated?: 30 Blood Pressure Sitting - Left Arm: 128/60 Diabetes Diabetic History: Type II Nutrition Referral for Diabetes: Yes Obesity Height: 5 ft 3 in Weight:: 196 lb Weight in Pounds: 196.0 lbs Body Mass Index (BMI): 34.7 Physical Inactivity Physical Inactivity: None Risk Stratification Risk Guidelines: Lowest Risk: Risk Factor for Smoking and Risk Factor for Depression, Moderate Risk: Risk Factor for Sedentary Lifestyle and Highest Risk: Risk Factor for Dyslipidemia, Risk Factor for Diabetes, Risk Factor for Obesity and Risk Factor for Hypertension For Smoking Smoking Risk Guidelines For Dyslipidemia Dyslipidemia Risk Guidelines For Diabetes Mellitus Diabetes Risk Guidelines For Obesity/Overweight Obesity/Overweight Risk Guidelines For Hypertension Hypertension Risk Guidelines For Sedentary Lifestyle Sedentary Lifestyle Risk Guidelines For Depression Depression Risk Guidelines Family History Family History Mother Diabetes Father Diabetes Other Hypertension Motivation Motivation to Participate On a scale of 1 to 10, how prepared are you to commit to attending program?: 9 What do you see as barriers to successfully being able to complete the program?: nothing What do you see as the benefits of succesfully completing the program? In other words, what do you hope to get out of participating in the program?: education, weight loss, stamina, improved quality of life Are there issues you are dealing with that will interfere with completing the program?: no Do you have a spouse or signficant other, family or friends who will help support you to complete the program?: yes
--- NOTE | 2023-02-06 13:04 | PCM.CR.ITP ---
Diagnosis General Information Admitting Diagnosis: heart valve replacement Personal Learning Style:: Audio/Visual Stage of change r/t lifestyle modifications:: Contemplation Gave educational material for:: Treating Heart Disease, How The Heart Works, What it means to have Heart Disease, How Coronary Artery Disease is Diagnosed, Heart Procedures, What Heart Medications Do, Risk Factors & Modifications, Living an Active Life, Nutrition, Emotions & Heart Disease, Stress Management & Relaxation and Sleep Disorders & Heart Disease Education/Goals Cardiac Rehabilitation Goals Personal Goals: Initial Assessment: Improve management of stress and emotions, Improve energy level, Participate in home exercise program, Improve knowledge of cardiac disease, Improve muscle strength and endurance, Improve diet and eating habits (eat healthier), Control risk factors (learn risk factor modification) and Other goal: Scale for measuring improvement of personal goals Diagnosis & Disease Process Outcomes/Goals: Pt IDs own risk factors & lifestyle modifications by Session 10, Verbalizes symptoms of angina & response by session 3., Pt independently manages and Other Additional Outcomes/Goals: Plan/Interventions: Assist Pt to ID & engage in lifestyle modification to reduce CVD risk, Instruct on individual risk factors, Review symptoms of angina & emergency actions, Review secondary diagnosis & identify educational needs. and Other see comment 30 day Reassessments:: Not Met 30 day Reassessments:: Not Met 30 day Reassessments:: Not Met 30 day Reassessments:: Not Met Final Reassessments:: Not Met Safety Referral to Physical Therapy: No Referral to [facility] Case Management: No Fall Risk Assessed:: Yes Assistive Devices:: None Exercise - Initial Assessment Visit Date of Eval: 02/06/23 (initial eval ) Mets: Pre-: >3 METS for 30 minutes by discharge, >5 METS for 30 minutes by discharge, >7 METS for 30 minutes by discharge and Unable to meet goal due to: (see comment below) Physician Prescribed Exercise Modalities: Treadmill, Rower, Airdyne, NuStep, SciFit and Lateral [place] Frequency: 3x/week for 12 weeks [36 sessions] Intensity: 60-80% of age predicted maximum heart rate reserve Duration: 30 - 45 minutes Target Heart Rate:: 89-111 Resting Blood Pressure: 128/60 EKG Type: ST w/1st degree AV block Outcomes & Goals Goals:: Verbalizes understanding of THR, RPE & goal METS by session 6, Documents in home exercise log/reports 30 min aerobic 5 day/wk by DC, Demonstrates accurate pulse taking by DC and Other additional outcome/goals: see below Intervention & Plan Exercise Program Goals: Instruct on personal THR & RPE, Instruct on MET level & personal MET goal, Show patient to take own pulse /validate performance until accurate, Instruct on home exercise and Other additional plan/int Physical Activity Home Exercise Physical Activity - Home Exercise: Safe Exercise, Warm-up, Self-monitoring, Cool-Down, Home Exercise > 30 min Daily and Sitting Time <3 hours/daily Outcomes & Goals Outcomes/Goals: Demonstrates correct Warm-up/exercise Cool-Down (S3) if = 2.5 METs, Verbalizes symptoms of exercise intolerance by Session 3 (S3), Demonstrate safe equipment use (S3) & follows exercise prescrition (6) and Other: See below Intervention & Plan Plan/Intervention: Instruct warm-up & cool-down if exercising at > 2 METs, Instruct on symptoms of exercise intolerance & actions to take, Instruct & monitor on saf, Assess intial functional capacity & safety risk and Other See below Nutrition - Initial Assessment Program Goals Nutrition Program Goals Patient has diagnosis of Hyperlipidemia (ICD E78)?: Yes Visit Date of Eval: 02/06/23 (initial eval ) Cholesterol/Lipids (Other Core Measures) Determine presence & major risk factors that modify LDL goal: Hypertension or hypertensive medication, Low HDL cholesterol <40 mg/dL*, Family history of premature CHD in Male < 55 years: female <65 yearsFa and Age men > 45 years; women >/= 55 years Outcomes/Goals: Pt IDs own risk factors & lifestyle modifications by Session 10, Verbalizes symptoms of angina & response by session 3., Pt independently manages and Other Additional Outcomes/Goals: Intervention/Plan: Advocate for lipid panel cholesterol medication if applicable, Instruct on personal lipid levels & lipid goals/NCEP guidelines, Instruct on cholesterol and Other additional plan/int Referral to dietitian:: No Diabetes (Other Core Measures) Diabetes Type: Diagnosis Type II ICD-10 E11 Insulin dependent injection/pump?: Yes Do you monitor your blood sugar at home?: Yes Referral to Diabetic Clinic:: Yes Outcomes/Goals:: Able to state symptoms of, Able to state, Able to state and Other additional Intervention/Plan:: Instruct on, Refer to, Instruct on and Other Weight Mgt (Other Care) Height: 5 ft 3 in Weight:: 196 lb BMI: 34.7 Diagnosis Overweight/Obesity BMI> 30% ICD-10 E66: Yes Diagnosis High BMI/Morbid Obesity BMI> 35% ICD-10 Z68: No Outcomes/Goals: Pt sets, maintains & shows weight loss goal & trend during rehab and Other additional outcomes/goals Intervention/Plan: Instruct on ideal BMI & set weight loss goal w/patient, Assist pt to ID & incorporate diet changes for weight loss by S9, Refer to Structured Weight Loss program as appropriate, Encourage goal of using 250-300dcal per session for weight loss and Other additional plan/interventions Healthy Eating Habits Will attend diet classes:: Yes Outcomes/Goals:: Consume diet rich in vegs,fruits,whole grain/high fiber,fish,lean meat, Limit sat/trans fats,cholesterol & added salts & sugars and Other additional outcome/goals: Intervention/Plan:: Assess current eating habits and Other Additional plan/interventions Education Gave educational materials for:: Signs & symptoms of hypoglycemia, Signs & symptoms of hyperglycemia, Relate diabetes to coronary artery disease and Healthy eating Core - Initial Assessment Visit Date of Eval: 02/06/23 (initial eval) Medication Compliance Preventative Medication(s):: Aspirin, GEOVANI inhibitor, Statin/lipid and Beta marcial H/O mental health issues: depression, anxiety, or addiction?: No Doesn?t believe in the benefits of treatment?: No Believes medications are unnecessary or harmful?: No Has a concern about medication side effects?: No Expresses concern over the cost of medications?: No Outcomes/Goals: Verbalizes medications,desired effect & common side effects @ DC, Pt self-reports following medication regimen, Keeps card in wallet w/medications listed by DC and Other additional outcome/goals: Interventions/plans: Instruct on medication effects & side effects, Review medication list w/patient every two weeks, Instruct importance of taking meds as ordered & assist problem solving and Other additional Tobacco Use Tobacco Use: Non-smoker Hypertension Hypertension Diagnosis:: Hypertension ICD-10 I10 Resting Blood Pressure:: 128/60 [place] [employer] Hypertension Guidelines Outcomes/Goals: Able to verbalize/achieve optimal blood pressure <130/80, Incorporates diet changes & exercise for blood pressure control by DC and Other additional outcomes/goals Interventions/plan: Instruct on optimal blood pressure, hypertension & medications, Instruct on effects of sodium, alcohol, stress, exercise &hypertension and Other additional plan/interventions Tobacco Cessation Referral Smoking Cessation Referral:: No Individual Education/Counseling:: No Education Schedule Given:: Yes Psychosocial - Initial Assess VIsit Date of Eval: 02/06/23 (initial eval ) History of previous Mental disease:: No Target Goals Target Goals Outcomes/Goals: See list Psychosocial Outcomes/Goals:: ID's personal stressors & 2 strategies to manage stress by discharge and Other Additional outcome/goals: Intervention/Plan: See List Interventions/Plan:: Assess stressors,coping strategies & signs of derpression on admission, Instruct/assist pt to develop coping & personal stress Mgt strategies, Refer to Behavioral Health if appropriate, Refer to Physician if appropriate, Instruct patient to recognize signs & symptoms of depression, Instruct patient to recog and Other additional plan/intervention Patient Health Questionnaire PHQ-9 Screening Initial Assessment: 1. Little interest or pleasure in doing things: Not at all 2. Feeling down, depressed, or hopeless: Not at all 3. Trouble falling or staying asleep, or sleeping too much: Several days 4. Feeling tired or having little energy: Several days 5. Poor appetite or overeating: Several days 6. Feeling bad about yourself -- or that you are a failure or have let yourself or your family down: Not at all 7. Trouble concentrating on things, such as reading the newspaper or watching television: Not at all 8. Moving or speaking so slowly that other people could have noticed. Or the opposite - being so fidgety or restless that you have been moving around a lot more than usual: Not at all 9. Thoughts that you would be better off , or of hurting yourself in some way: Not at all How difficult have these problems made it for you to do your work, take care of things at home, or get along with other people?: Somewhat difficult Total Score: 3 SAIMA-Q SV Test Statements CAD is a disease of the arteries in the heart: False Examples of risk factors for heart disease: True Angina is chest pain or discomfort: True The benefits of resistance training include: True Eating more meat and dairy products: False Anti-platelet medications such as aspirin are important: True The only effective way to manage stress: False An exercise warm-up slowly increases heart rate: True Prepared, processed foods usually have high sodium: True Depression is common after a heart attack: True The statin medications lower cholesterol: True To control blood pressure, lower the amount of sodium: True If someone gets chest discomfort during walking: False Transfats are partially hydrogenated vegetable oils: I Don't Know Sleep apnea that is not treated increases the risk: False To control cholesterol, one should become a vegetarian: False Someone knows if he/she is exercising at the right level: True Diabetes cannot be prevented with exercise & health eating: I Don't Know Stress is a large risk for heart attack: True A diet that can help lower blood pressure is rich in: True Total Score Total Correct Responses: 18 Self-Efficacy 6-Item Scale Initial Assessment: We would like to know how confident you are in doing certain activities. Please select your confidence level for: Fatigue Select Number: 7 Physical Discomfort or Pain Select Number: 7 Emotional Distress Select Number: 7 Other Symptoms or Health Problems Select Number: 7 Different Tasks and Activities Select Number: 7 Medication Select Number: 8 Total Score:: 7 Nutrition Survey Nutrition Survey Instructions Scoring Instructions Nutrition Survey Initial: Have you lost >10 lbs over the past 2 months without trying?: No Are you following a special diet at home for diabetes, low fat, or low salt?: Yes Are you interested in meeting with a dietitian for help understanding your diet?: Yes Do you eat less than 3 meals a day?: No Do you eat fatty meats (grier, sausage, ribs, etc), fried foods, desserts, large amounts of salad dressings, margarine, butter, or cheese most days?: No Do you have food allergies? [Enter types in comment field]: No Do you eat in restaurants more than 3 times a week?: Yes Do you season food with salt, seasoning salt, or garlic salt?: No Do you used canned, boxed, frozen meals, or soups, seasoning packets?: No Total Score:: 3 Exercise - Final/Discharge Physician Prescribed Exercise Modalities: Treadmill, Rower, Airdyne, NuStep, SciFit and Lateral [place] Frequency: 3x/week for 12 weeks [36 sessions] Intensity: 60-80% of age predicted maximum heart rate reserve Target Heart Rate:: 89-111 Nutrition - 30-Day Assessment Weight Mgt (Other Care) Height: 5 ft 3 in Weight:: 196 lb BMI: 34.7 Nutrition - 60-Day Assessment Weight Mgt (Other Care) Height: 5 ft 3 in Weight:: 196 lb BMI: 34.7 Core - Final Assessment Hypertension Resting Blood Pressure:: 128/60 [place] [employer] Hypertension Guidelines Core - 60-Day Assessment Hypertension Resting Blood Pressure:: 128/60 [place] [employer] Hypertension Guidelines Psychosocial - 30-Day Assess Target Goals Target Goals Psychosocial - 60-Day Assess Target Goals Target Goals Psychosocial - 90-Day Assess Target Goals Target Goals Psychosocial - Final Assessmen Target Goals Target Goals Nutrition - 90-Day Assessment Weight Mgt (Other Care) Height: 5 ft 3 in Weight:: 196 lb BMI: 34.7 Nutrition - Final Assessment Program Goals Patient has diagnosis of Hyperlipidemia (ICD E78)?: Yes Weight Mgt (Other Care) Height: 5 ft 3 in Weight:: 196 lb BMI: 34.7
[2023-02-06 13:20] VITALS: PULSE 97; O2SAT 94
[2023-02-06 13:27] VITALS: BP 128/60; BMI 34.7
[2023-02-06 13:57] VITALS: BP 128/60; BMI 34.7
== END | disposition home or self-care (01) ==
LOC: CR 12:52
PROVIDERS: PCP Physician Assistant; Referring Provider Internal Medicine Cardiovascular Disease; Visit Provider Internal Medicine Cardiovascular Disease
DX: E11.9 Type 2 diabetes mellitus without complications (principal)

== ENCOUNTER 2023-02-22 10:15 | Outpatient (RCR) | payer MEDICARE, OTHER, SELFPAY ==
[2023-02-06 13:57] VITALS: BMI 34.7
== END 2023-02-23 23:59 ==
LOC: CR 10:15
PROVIDERS: PCP Physician Assistant; Referring Provider Internal Medicine Cardiovascular Disease; Visit Provider Internal Medicine Cardiovascular Disease
DX: I25.810 Atherosclerosis of coronary artery bypass graft(s) without angina pectoris (principal); I25.10 Atherosclerotic heart disease of native coronary artery without angina pectoris; I10 Essential (primary) hypertension; E78.5 Hyperlipidemia, unspecified; E11.65 Type 2 diabetes mellitus with hyperglycemia; Z95.2 Presence of prosthetic heart valve; Z79.4 Long term (current) use of insulin; E03.9 Hypothyroidism, unspecified
CPT/HCPCS: 93798

== ENCOUNTER 2023-03-10 10:15 | Outpatient (RCR) | payer MEDICARE, OTHER, SELFPAY ==
[2023-02-06 13:57] VITALS: BMI 34.7
--- NOTE | 2023-03-08 10:15 | CR.ITP_ITS ---
Exercise - Initial Assessment Visit Session #:: 11 Nutrition - Initial Assessment Weight Mgt (Other Care) Height: 5 ft 3 in Weight:: 194 lb 8 oz BMI: 34.4 Psychosocial - Initial Assess Target Goals Target Goals Patient Health Questionnaire PHQ-9 Screening 30-Day Re-eval Assessment: 1. Little interest or pleasure in doing things: Not at all 2. Feeling down, depressed, or hopeless: Not at all 3. Trouble falling or staying asleep, or sleeping too much: Several days 4. Feeling tired or having little energy: Several days 5. Poor appetite or overeating: Several days 6. Feeling bad about yourself -- or that you are a failure or have let yourself or your family down: Not at all 7. Trouble concentrating on things, such as reading the newspaper or watching television: Not at all 8. Moving or speaking so slowly that other people could have noticed. Or the opposite - being so fidgety or restless that you have been moving around a lot more than usual: Not at all 9. Thoughts that you would be better off , or of hurting yourself in some way: Not at all How difficult have these problems made it for you to do your work, take care of things at home, or get along with other people?: Somewhat difficult Total Score: 3 Self-Efficacy 6-Item Scale 30-Day Re-eval Assessment: We would like to know how confident you are in doing certain activities. Please select your confidence level for: Fatigue Select Number: 7 Physical Discomfort or Pain Select Number: 7 Emotional Distress Select Number: 7 Other Symptoms or Health Problems Select Number: 7 Different Tasks and Activities Select Number: 7 Medication Select Number: 8 Total Score:: 7 Nutrition Survey Nutrition Survey Instructions Scoring Instructions Exercise - 30-day Assessment Visit Date of Eval: 03/08/23 Session #:: 11 Physician Prescribed Exercise Modalities: Treadmill and NuStep Frequency: 3x/week for 12 weeks [36 sessions] Intensity: 60-80% of age predicted maximum heart rate reserve Duration: 30 - 45 minutes Current METSs:: 3 Target Heart Rate:: Rest +20 Current RPE:: 11 Maximum Excercise HR:: 116 Resting Blood Pressure: 130/72 Maximum Exercise Blood Pressure: 142/58 EKG Type: ST with 1st degree AV block Outcomes & Goals Goals:: Verbalizes understanding of THR, RPE & goal METS by session 6, Documents in home exercise log/reports 30 min aerobic 5 day/wk by DC, Demonstrates accurate pulse taking by DC and Other additional outcome/goals: see below Intervention & Plan Exercise Program Goals: Instruct on personal THR & RPE, Instruct on MET level & personal MET goal, Show patient to take own pulse /validate performance until accurate, Instruct on home exercise and Other additional plan/int 30-day Reassessments 30 day Reassessments:: Progressing Reassessment Notes & Comments:: THR explained Physical Activity Home Exercise Physical Activity - Home Exercise: Safe Exercise, Warm-up, Self-monitoring, Cool -Down, Home Exercise > 30 min Daily and Sitting Time <3 hours/daily Outcomes & Goals Outcomes/Goals: Demonstrates correct Warm-up/exercise Cool-Down (S3) if = 2.5 METs, Verbalizes symptoms of exercise intolerance by Session 3 (S3), Demonstrate safe equipment use (S3) & follows exercise prescrition (6) and Other: See below Intervention & Plan Plan/Intervention: Instruct warm-up & cool-down if exercising at > 2 METs, Instruct on symptoms of exercise intolerance & actions to take, Instruct & monitor on saf, Assess intial functional capacity & safety risk and Other See below Comment: warm up encouraged 30-day Reassessments 30 day Reassessments:: Progressing Reassessment Notes & Comments:: warm up encouraged Nutrition - 30-Day Assessment Program Goals Nutrition Program Goals Patient has diagnosis of Hyperlipidemia (ICD E78)?: Yes Visit Date of Eval: 03/08/23 Session #:: 11 Cholesterol/Lipids (Other Core Measures) Determine presence & major risk factors that modify LDL goal: Cigarette smoking, Hypertension or hypertensive medication, Low HDL cholesterol <40 mg/dL*, Family history of premature CHD in Male < 55 years: female <65 yearsFa and Age men > 45 years; women >/= 55 years Outcomes/Goals: Pt IDs own risk factors & lifestyle modifications by Session 10, Verbalizes symptoms of angina & response by session 3., Pt independently manages and Other Additional Outcomes/Goals: Intervention/Plan: Advocate for lipid panel cholesterol medication if applicable, Instruct on personal lipid levels & lipid goals/NCEP guidelines, Instruct on cholesterol and Other additional plan/int Referral to dietitian:: No 30-day Reassessments:: Progressing Reassessment Notes & Comments:: pt will attend nutrition class Diabetes (Other Core Measures) Diabetes Type: Diagnosis Type II ICD-10 E11 Insulin dependent injection/pump?: Yes Non-Insulin Dependent?: Yes Do you monitor your blood sugar at home?: Yes Outcomes/Goals:: Able to state symptoms of, Able to state, Able to state and Other additional Intervention/Plan:: Instruct on, Refer to, Instruct on and Other 30-day Reassessments:: Progressing Reassessment Notes & Comments:: pt will attend nutrition class Weight Mgt (Other Care) Height: 5 ft 3 in Weight:: 194 lb 8 oz BMI: 34.4 Diagnosis Overweight/Obesity BMI> 30% ICD-10 E66: Yes Diagnosis High BMI/Morbid Obesity BMI> 35% ICD-10 Z68: No Outcomes/Goals: Pt sets, maintains & shows weight loss goal & trend during rehab and Other additional outcomes/goals Intervention/Plan: Instruct on ideal BMI & set weight loss goal w/patient, Assist pt to ID & incorporate diet changes for weight loss by S9, Refer to Structured Weight Loss program as appropriate, Encourage goal of using 250- 300dcal per session for weight loss and Other additional plan/interventions 30 day Reassessments:: Progressing Reassessment Notes & Comments:: pt will attend nutrition class Healthy Eating Habits Will attend diet classes:: Yes Outcomes/Goals:: Consume diet rich in vegs,fruits,whole grain/high fiber,fish,lean meat, Limit sat/trans fats,cholesterol & added salts & sugars and Other additional outcome/goals: Intervention/Plan:: Assess current eating habits and Other Additional plan/interventions 30-day Reassessments:: Progressing Reassessment Notes & Comments:: pt will attend nutrition class Education Gave educational materials for:: Signs & symptoms of hypoglycemia, Signs & symptoms of hyperglycemia, Relate diabetes to coronary artery disease and Healthy eating Nutrition - 60-Day Assessment Weight Mgt (Other Care) Height: 5 ft 3 in Weight:: 194 lb 8 oz BMI: 34.4 Core - 30-Day Assessment Visit Date of Eval: 03/08/23 Session #:: 11 Medication Compliance Preventative Medication(s):: Aspirin, GEOVANI inhibitor, Statin/lipid and Beta b locker H/O mental health issues: depression, anxiety, or addiction?: No Doesn?t believe in the benefits of treatment?: No Believes medications are unnecessary or harmful?: No Has a concern about medication side effects?: No Expresses concern over the cost of medications?: No Outcomes/Goals: Verbalizes medications,desired effect & common side effects @ DC, Pt self-reports following medication regimen, Keeps card in wallet w/medications listed by DC and Other additional outcome/goals: Interventions/plans: Instruct on medication effects & side effects, Review medication list w/patient every two weeks, Instruct importance of taking meds as ordered & assist problem solving and Other additional 30-day Reassessments:: Progressing Reassessment Notes & Comments:: pt encouraged to take her meds Tobacco Use Tobacco Use: Non-smoker Hypertension Hypertension Diagnosis:: Hypertension ICD-10 I10 Resting Blood Pressure:: 130/72 [place] [employer] Hypertension Guidelines Peak Exercise Blood Pressure:: 142/58 Outcomes/Goals: Able to verbalize/achieve optimal blood pressure <130/80, Incorporates diet changes & exercise for blood pressure control by DC and Other additional outcomes/goals Interventions/plan: Instruct on optimal blood pressure, hypertension & medications, Instruct on effects of sodium, alcohol, stress, exercise &hypertension and Other additional plan/interventions 30 day Reassessments:: Progressing Reassessment Notes & Comments:: pt encouraged to take her meds Tobacco Cessation Referral Smoking Cessation Referral:: No Individual Education/Counseling:: No Education Schedule Given:: Yes Psychosocial - 30-Day Assess VIsit Date of Eval: 03/08/23 Session #:: 11 History of previous Mental disease:: No Target Goals Target Goals Psychosocial - 60-Day Assess Target Goals Target Goals Psychosocial - 90-Day Assess Target Goals Target Goals Psychosocial - Final Assessmen Target Goals Target Goals Nutrition - 90-Day Assessment Weight Mgt (Other Care) Height: 5 ft 3 in Weight:: 194 lb 8 oz BMI: 34.4 Nutrition - Final Assessment Weight Mgt (Other Care) Height: 5 ft 3 in Weight:: 194 lb 8 oz BMI: 34.4
[2023-03-08 10:24] VITALS: BP 130/72; BMI 34.4
== END 2023-03-26 23:59 ==
LOC: CR 10:15
PROVIDERS: PCP Physician Assistant; Referring Provider Internal Medicine Cardiovascular Disease; Visit Provider Internal Medicine Cardiovascular Disease
DX: I25.810 Atherosclerosis of coronary artery bypass graft(s) without angina pectoris (principal); I25.10 Atherosclerotic heart disease of native coronary artery without angina pectoris; I10 Essential (primary) hypertension; E78.5 Hyperlipidemia, unspecified; E11.65 Type 2 diabetes mellitus with hyperglycemia; Z95.2 Presence of prosthetic heart valve; Z79.4 Long term (current) use of insulin; E03.9 Hypothyroidism, unspecified
CPT/HCPCS: 93798

== ENCOUNTER 2023-04-26 10:15 | Outpatient (RCR) | payer MEDICARE, OTHER, SELFPAY ==
[2023-03-08 10:24] VITALS: BMI 34.4
[2023-03-27 00:47] VITALS: BP 130/72
--- NOTE | 2023-04-07 07:18 | CR.ITP_ITS ---
Nutrition - Initial Assessment Weight Mgt (Other Care) Height: 5 ft 3 in Weight:: 190 lb BMI: 33.6 Psychosocial - Initial Assess Target Goals Target Goals Patient Health Questionnaire PHQ-9 Screening 60-Day Re-eval Assessment: 1. Little interest or pleasure in doing things: Not at all 2. Feeling down, depressed, or hopeless: Not at all 3. Trouble falling or staying asleep, or sleeping too much: Several days 4. Feeling tired or having little energy: Several days 5. Poor appetite or overeating: Several days 6. Feeling bad about yourself -- or that you are a failure or have let yourself or your family down: Not at all 7. Trouble concentrating on things, such as reading the newspaper or watching television: Not at all 8. Moving or speaking so slowly that other people could have noticed. Or the opposite - being so fidgety or restless that you have been moving around a lot more than usual: Not at all 9. Thoughts that you would be better off , or of hurting yourself in some way: Not at all How difficult have these problems made it for you to do your work, take care of things at home, or get along with other people?: Somewhat difficult Total Score: 3 Self-Efficacy 6-Item Scale 60-Day Re-eval Assessment: We would like to know how confident you are in doing certain activities. Please select your confidence level for: Fatigue Select Number: 7 Physical Discomfort or Pain Select Number: 7 Emotional Distress Select Number: 7 Other Symptoms or Health Problems Select Number: 7 Different Tasks and Activities Select Number: 7 Medication Select Number: 8 Total Score:: 7 Nutrition Survey Nutrition Survey Instructions Scoring Instructions Exercise - 60-day Assessment Visit Date of Eval: 04/07/23 Session #:: 17 (Pt [id number] thru due to covid) Physician Prescribed Exercise Modalities: Treadmill, NuStep and Lateral [place] Frequency: 3x/week for 12 weeks [36 sessions] Intensity: 60-80% of age predicted maximum heart rate reserve Duration: 30 - 45 minutes Current METSs:: 4.5 Target Heart Rate:: Rest +20 Current RPE:: 8-11.5 Maximum Excercise HR:: 120 Resting Blood Pressure: 160/50 Maximum Exercise Blood Pressure: 160/50 EKG Type: NSR to ST w/1st degree AV block with occas pac,pvc Outcomes & Goals Goals:: Verbalizes understanding of THR, RPE & goal METS by session 6, Documents in home exercise log/reports 30 min aerobic 5 day/wk by DC, Demonstrates accurate pulse taking by DC and Other additional outcome/goals: see below Intervention & Plan Exercise Program Goals: Instruct on personal THR & RPE, Instruct on MET level & personal MET goal, Show patient to take own pulse /validate performance until accurate, Instruct on home exercise and Other additional plan/int 30-day Reassessments 30 day Reassessments:: Progressing Reassessment Notes & Comments:: METs explained Physical Activity Home Exercise Physical Activity - Home Exercise: Safe Exercise, Warm-up, Self-monitoring, Cool-Down, Home Exercise > 30 min Daily and Sitting Time <3 hours/daily Outcomes & Goals Outcomes/Goals: Demonstrates correct Warm-up/exercise Cool-Down (S3) if = 2.5 METs, Verbalizes symptoms of exercise intolerance by Session 3 (S3), Demonstrate safe equipment use (S3) & follows exercise prescrition (6) and Other: See below Intervention & Plan Plan/Intervention: Instruct warm-up & cool-down if exercising at > 2 METs, Instruct on symptoms of exercise intolerance & actions to take, Instruct & monitor on saf, Assess intial functional capacity & safety risk and Other See below 30-day Reassessments 30 day Reassessments:: Progressing Reassessment Notes & Comments:: cool down encouraged Nutrition - 30-Day Assessment Weight Mgt (Other Care) Height: 5 ft 3 in Weight:: 190 lb BMI: 33.6 Nutrition - 60-Day Assessment Program Goals Nutrition Program Goals Patient has diagnosis of Hyperlipidemia (ICD E78)?: Yes Visit Date of Eval: 04/07/23 Session #:: 17 Cholesterol/Lipids (Other Core Measures) Determine presence & major risk factors that modify LDL goal: Cigarette smoking, Hypertension or hypertensive medication, Low HDL cholesterol <40 mg/dL*, Family history of premature CHD in Male < 55 years: female <65 yearsFa and Age men > 45 years; women >/= 55 years Outcomes/Goals: Pt IDs own risk factors & lifestyle modifications by Session 10, Verbalizes symptoms of angina & response by session 3., Pt independently manages and Other Additional Outcomes/Goals: Intervention/Plan: Advocate for lipid panel cholesterol medication if applicable, Instruct on personal lipid levels & lipid goals/NCEP guidelines, Instruct on cholesterol and Other additional plan/int Referral to dietitian:: No 30-day Reassessments:: Progressing Reassessment Notes & Comments:: pt to attend nutrition class Diabetes (Other Core Measures) Diabetes Type: Diagnosis Type II ICD-10 E11 Insulin dependent injection/pump?: Yes Non-Insulin Dependent?: Yes Do you monitor your blood sugar at home?: Yes Referral to Diabetic Clinic:: Yes Outcomes/Goals:: Able to state symptoms of, Able to state, Able to state and Other additional Intervention/Plan:: Instruct on, Refer to, Instruct on and Other 30-day Reassessments:: Progressing Reassessment Notes & Comments:: pt to attend nutrition class Weight Mgt (Other Care) Height: 5 ft 3 in Weight:: 190 lb BMI: 33.6 Diagnosis Overweight/Obesity BMI> 30% ICD-10 E66: Yes Diagnosis High BMI/Morbid Obesity BMI> 35% ICD-10 Z68: Yes Outcomes/Goals: Pt sets, maintains & shows weight loss goal & trend during rehab and Other additional outcomes/goals Intervention/Plan: Instruct on ideal BMI & set weight loss goal w/patient, Assist pt to ID & incorporate diet changes for weight loss by S9, Refer to Structured Weight Loss program as appropriate, Encourage goal of using 250- 300dcal per session for weight loss and Other additional plan/interventions 30 day Reassessments:: Progressing Reassessment Notes & Comments:: pt to attend nutrition class Healthy Eating Habits Will attend diet classes:: Yes Outcomes/Goals:: Consume diet rich in vegs,fruits,whole grain/high fiber,fish,lean meat, Limit sat/trans fats,cholesterol & added salts & sugars and Other additional outcome/goals: Intervention/Plan:: Assess current eating habits and Other Additional plan/interventions 30-day Reassessments:: Progressing Reassessment Notes & Comments:: pt to attend nutrition class Education Gave educational materials for:: Signs & symptoms of hypoglycemia, Signs & symptoms of hyperglycemia, Relate diabetes to coronary artery disease and Healthy eating Core - 60-Day Assessment Visit Date of Eval: 04/07/23 Session #:: 17 Medication Compliance Preventative Medication(s):: Aspirin, GEOVANI inhibitor, Statin/lipid and Beta marcial H/O mental health issues: depression, anxiety, or addiction?: No Doesn?t believe in the benefits of treatment?: No Believes medications are unnecessary or harmful?: No Has a concern about medication side effects?: No Expresses concern over the cost of medications?: No Outcomes/Goals: Verbalizes medications,desired effect & common side effects @ DC, Pt self-reports following medication regimen, Keeps card in wallet w/medications listed by DC and Other additional outcome/goals: Interventions/plans: Instruct on medication effects & side effects, Review medication list w/patient every two weeks, Instruct importance of taking meds as ordered & assist problem solving and Other additional 30-day Reassessments:: Progressing Reassessment Notes & Comments:: Pt encouraged to take her meds Tobacco Use Tobacco Use: Non-smoker Hypertension Hypertension Diagnosis:: Hypertension ICD-10 I10 Resting Blood Pressure:: 160/50 [place] [employer] Hypertension Guidelines Peak Exercise Blood Pressure:: 160/50 Outcomes/Goals: Able to verbalize/achieve optimal blood pressure <130/80, Incorporates diet changes & exercise for blood pressure control by DC and Other additional outcomes/goals Interventions/plan: Instruct on optimal blood pressure, hypertension & medications, Instruct on effects of sodium, alcohol, stress, exercise &hypertension and Other additional plan/interventions 30 day Reassessments:: Progressing Reassessment Notes & Comments:: pt encouraged to take her meds Tobacco Cessation Referral Smoking Cessation Referral:: No Individual Education/Counseling:: No Education Schedule Given:: Yes Psychosocial - 30-Day Assess Target Goals Target Goals Outcomes/Goals: See list Psychosocial Outcomes/Goals:: ID's personal stressors & 2 strategies to manage stress by discharge and Other Additional outcome/goals: Psychosocial - 60-Day Assess VIsit Date of Eval: 04/07/23 Session #:: 17 History of previous Mental disease:: No Target Goals Target Goals Outcomes/Goals: See list Psychosocial Outcomes/Goals:: ID's personal stressors & 2 strategies to manage stress by discharge and Other Additional outcome/goals: Intervention/Plan: See List Interventions/Plan:: Assess stressors,coping strategies & signs of derpression on admission, Instruct/assist pt to develop coping & personal stress Mgt strategies, Refer to Behavioral Health if appropriate, Refer to Physician if appropriate, Instruct patient to recognize signs & symptoms of depression, Instruct patient to recog and Other additional plan/intervention 30-day Reassessments: 30 day Reassessments:: Met Psychosocial - 90-Day Assess Target Goals Target Goals Psychosocial - Final Assessmen Target Goals Target Goals Nutrition - 90-Day Assessment Weight Mgt (Other Care) Height: 5 ft 3 in Weight:: 190 lb BMI: 33.6 Nutrition - Final Assessment Weight Mgt (Other Care) Height: 5 ft 3 in Weight:: 190 lb BMI: 33.6
[2023-04-07 07:28] VITALS: BP 160/50; BMI 33.6
== END 2023-04-26 23:59 ==
LOC: CR 10:15
PROVIDERS: PCP Physician Assistant; Referring Provider Internal Medicine Cardiovascular Disease; Visit Provider Internal Medicine Cardiovascular Disease
DX: I25.810 Atherosclerosis of coronary artery bypass graft(s) without angina pectoris (principal); I25.10 Atherosclerotic heart disease of native coronary artery without angina pectoris; I10 Essential (primary) hypertension; E78.5 Hyperlipidemia, unspecified; E11.65 Type 2 diabetes mellitus with hyperglycemia; Z79.4 Long term (current) use of insulin; E03.9 Hypothyroidism, unspecified; Z95.2 Presence of prosthetic heart valve
CPT/HCPCS: 93798

== ENCOUNTER 2023-05-24 10:15 | Outpatient (RCR) | payer MEDICARE, OTHER, SELFPAY ==
[2023-04-07 07:28] VITALS: BMI 33.6
[2023-04-27 00:30] VITALS: BP 130/72; BP 160/50
--- NOTE | 2023-05-08 08:20 | PCM.CR.ITP ---
Nutrition - Initial Assessment Weight Mgt (Other Care) Height: 5 ft 3 in Weight:: 192 lb BMI: 34.0 Psychosocial - Initial Assess Target Goals Target Goals Patient Health Questionnaire PHQ-9 Screening 90-Day Re-eval Assessment: 1. Little interest or pleasure in doing things: Not at all 2. Feeling down, depressed, or hopeless: Not at all 3. Trouble falling or staying asleep, or sleeping too much: Several days 4. Feeling tired or having little energy: Several days 5. Poor appetite or overeating: Several days 6. Feeling bad about yourself -- or that you are a failure or have let yourself or your family down: Not at all 7. Trouble concentrating on things, such as reading the newspaper or watching television: Not at all 8. Moving or speaking so slowly that other people could have noticed. Or the opposite - being so fidgety or restless that you have been moving around a lot more than usual: Not at all 9. Thoughts that you would be better off , or of hurting yourself in some way: Not at all How difficult have these problems made it for you to do your work, take care of things at home, or get along with other people?: Somewhat difficult Total Score: 3 Self-Efficacy 6-Item Scale 90-Day Re-eval Assessment: We would like to know how confident you are in doing certain activities. Please select your confidence level for: Fatigue Select Number: 7 Physical Discomfort or Pain Select Number: 7 Emotional Distress Select Number: 7 Other Symptoms or Health Problems Select Number: 7 Different Tasks and Activities Select Number: 7 Medication Select Number: 8 Total Score:: 7 Nutrition Survey Nutrition Survey Instructions Scoring Instructions Exercise - 90-day Assessment Visit Date of Eval: 05/08/23 Session #:: 29 Physician Prescribed Exercise Modalities: Treadmill and NuStep Frequency: 3x/week for 12 weeks [36 sessions] Intensity: 60-80% of age predicted maximum heart rate reserve Duration: 30 - 45 minutes Current METSs:: 4.5 Target Heart Rate:: Rest +20 Current RPE:: 10-13 Maximum Excercise HR:: 124 Resting Blood Pressure: 128/72 Maximum Exercise Blood Pressure: 178/74 EKG Type: NSR to ST w/ 1st degree av block with rare PVC's Outcomes & Goals Goals:: Verbalizes understanding of THR, RPE & goal METS by session 6, Documents in home exercise log/reports 30 min aerobic 5 day/wk by DC, Demonstrates accurate pulse taking by DC and Other additional outcome/goals: see below Intervention & Plan Exercise Program Goals: Instruct on personal THR & RPE, Instruct on MET level & personal MET goal, Show patient to take own pulse /validate performance until accurate, Instruct on home exercise and Other additional plan/int 30-day Reassessments 30 day Reassessments:: Not Met Physical Activity Home Exercise Physical Activity - Home Exercise: Safe Exercise, Warm-up, Self-monitoring, Cool-Down, Home Exercise > 30 min Daily and Sitting Time <3 hours/daily Outcomes & Goals Outcomes/Goals: Demonstrates correct Warm-up/exercise Cool-Down (S3) if = 2.5 METs, Verbalizes symptoms of exercise intolerance by Session 3 (S3), Demonstrate safe equipment use (S3) & follows exercise prescrition (6) and Other: See below Intervention & Plan Plan/Intervention: Instruct warm-up & cool-down if exercising at > 2 METs, Instruct on symptoms of exercise intolerance & actions to take, Instruct & monitor on saf, Assess intial functional capacity & safety risk and Other See below 30-day Reassessments 30 day Reassessments:: Met Nutrition - 30-Day Assessment Weight Mgt (Other Care) Height: 5 ft 3 in Weight:: 192 lb BMI: 34.0 Nutrition - 60-Day Assessment Weight Mgt (Other Care) Height: 5 ft 3 in Weight:: 192 lb BMI: 34.0 Core - 90 Day Assessment Visit Date of Eval: 05/08/23 Session #:: 29 Medication Compliance Preventative Medication(s):: Aspirin, GEOVANI inhibitor, Statin/lipid and Beta marcial H/O mental health issues: depression, anxiety, or addiction?: No Doesn?t believe in the benefits of treatment?: No Believes medications are unnecessary or harmful?: No Has a concern about medication side effects?: No Expresses concern over the cost of medications?: No Outcomes/Goals: Verbalizes medications,desired effect & common side effects @ DC, Pt self-reports following medication regimen, Keeps card in wallet w/medications listed by DC and Other additional outcome/goals: Interventions/plans: Instruct on medication effects & side effects, Review medication list w/patient every two weeks, Instruct importance of taking meds as ordered & assist problem solving and Other additional 30-day Reassessments:: Met Tobacco Use Tobacco Use: Non-smoker Hypertension Hypertension Diagnosis:: Hypertension ICD-10 I10 Resting Blood Pressure:: 128/72 [place] [employer] Hypertension Guidelines Peak Exercise Blood Pressure:: 178/74 Outcomes/Goals: Able to verbalize/achieve optimal blood pressure <130/80, Incorporates diet changes & exercise for blood pressure control by DC and Other additional outcomes/goals Interventions/plan: Instruct on optimal blood pressure, hypertension & medications, Instruct on effects of sodium, alcohol, stress, exercise &hypertension and Other additional plan/interventions 30 day Reassessments:: Met Tobacco Cessation Referral Smoking Cessation Referral:: No Individual Education/Counseling:: No Education Schedule Given:: Yes Psychosocial - 30-Day Assess Target Goals Target Goals Psychosocial - 60-Day Assess Target Goals Target Goals Psychosocial - 90-Day Assess VIsit Date of Eval: 05/08/23 Session #:: 29 History of previous Mental disease:: No Target Goals Target Goals Outcomes/Goals: See list Psychosocial Outcomes/Goals:: ID's personal stressors & 2 strategies to manage stress by discharge and Other Additional outcome/goals: Intervention/Plan: See List Interventions/Plan:: Assess stressors,coping strategies & signs of derpression on admission, Instruct/assist pt to develop coping & personal stress Mgt strategies, Refer to Behavioral Health if appropriate, Refer to Physician if appropriate, Instruct patient to recognize signs & symptoms of depression, Instruct patient to recog and Other additional plan/intervention 30-day Reassessments: 30 day Reassessments:: Met Psychosocial - Final Assessmen Target Goals Target Goals Nutrition - 90-Day Assessment Program Goals Nutrition Program Goals Patient has diagnosis of Hyperlipidemia (ICD E78)?: Yes Visit Date of Eval: 05/08/23 Session #:: 29 Cholesterol/Lipids (Other Core Measures) Determine presence & major risk factors that modify LDL goal: Cigarette smoking, Hypertension or hypertensive medication, Low HDL cholesterol <40 mg/dL*, Family history of premature CHD in Male < 55 years: female <65 yearsFa and Age men > 45 years; women >/= 55 years Outcomes/Goals: Pt IDs own risk factors & lifestyle modifications by Session 10, Verbalizes symptoms of angina & response by session 3., Pt independently manages and Other Additional Outcomes/Goals: Intervention/Plan: Advocate for lipid panel cholesterol medication if applicable, Instruct on personal lipid levels & lipid goals/NCEP guidelines, Instruct on cholesterol and Other additional plan/int 30-day Reassessments:: Met Diabetes (Other Core Measures) Diabetes Type: Not Applicable Weight Mgt (Other Care) Height: 5 ft 3 in Weight:: 192 lb BMI: 34.0 Diagnosis Overweight/Obesity BMI> 30% ICD-10 E66: Yes Diagnosis High BMI/Morbid Obesity BMI> 35% ICD-10 Z68: No Outcomes/Goals: Pt sets, maintains & shows weight loss goal & trend during rehab and Other additional outcomes/goals Intervention/Plan: Instruct on ideal BMI & set weight loss goal w/patient, Assist pt to ID & incorporate diet changes for weight loss by S9, Refer to Structured Weight Loss program as appropriate, Encourage goal of using 250-300dcal per session for weight loss and Other additional plan/interventions 30 day Reassessments:: Met Healthy Eating Habits Will attend diet classes:: Yes Outcomes/Goals:: Consume diet rich in vegs,fruits,whole grain/high fiber,fish,lean meat, Limit sat/trans fats,cholesterol & added salts & sugars and Other additional outcome/goals: Intervention/Plan:: Assess current eating habits and Other Additional plan/interventions 30-day Reassessments:: Met Education Gave educational materials for:: Signs & symptoms of hypoglycemia, Signs & symptoms of hyperglycemia, Relate diabetes to coronary artery disease and Healthy eating Nutrition - Final Assessment Weight Mgt (Other Care) Height: 5 ft 3 in Weight:: 192 lb BMI: 34.0
[2023-05-08 08:31] VITALS: BP 128/72; BMI 34.0
== END 2023-05-25 23:59 ==
LOC: CR 10:15
PROVIDERS: PCP Physician Assistant; Referring Provider Internal Medicine Cardiovascular Disease; Visit Provider Internal Medicine Cardiovascular Disease
DX: I25.810 Atherosclerosis of coronary artery bypass graft(s) without angina pectoris (principal); I25.10 Atherosclerotic heart disease of native coronary artery without angina pectoris; I10 Essential (primary) hypertension; E78.5 Hyperlipidemia, unspecified; E11.65 Type 2 diabetes mellitus with hyperglycemia; Z95.2 Presence of prosthetic heart valve; Z79.4 Long term (current) use of insulin; E03.9 Hypothyroidism, unspecified
CPT/HCPCS: 93798; 97802

== ENCOUNTER 2023-05-26 06:27 | Outpatient (RCR) | payer MEDICARE, OTHER, SELFPAY ==
[2023-05-08 08:31] VITALS: BMI 34.0
[2023-05-26 00:28] VITALS: BP 128/72; BP 130/72; BP 160/50
== END 2023-06-25 23:59 ==
LOC: CR 06:27
PROVIDERS: PCP Physician Assistant; Referring Provider Internal Medicine Cardiovascular Disease; Visit Provider Internal Medicine Cardiovascular Disease
DX: Z95.2 Presence of prosthetic heart valve (principal); I25.10 Atherosclerotic heart disease of native coronary artery without angina pectoris; I25.810 Atherosclerosis of coronary artery bypass graft(s) without angina pectoris; I10 Essential (primary) hypertension; E78.5 Hyperlipidemia, unspecified; E11.65 Type 2 diabetes mellitus with hyperglycemia; Z79.4 Long term (current) use of insulin; E03.9 Hypothyroidism, unspecified
CPT/HCPCS: 93798

== ENCOUNTER → 2024-01-23 | Outpatient (CLI) | payer MEDICARE, OTHER, SELFPAY ==
[2023-05-08 08:31] VITALS: BMI 34.0
--- NOTE | 2024-01-23 12:54 | ECHOCS_ITS ---
Reason For Study: ASHD/CAD Procedure This was a 2D Doppler, Color Flow transthoracic echocardiogram. The study was technically difficult. Contrast injection was performed. Exam performed in department. Left Ventricle Normal LV size. Left ventricular systolic function is normal. The left ventricular ejection fraction is 55 %. No regional wall motion abnormalities noted. Right Ventricle Normal RV size. Normal systolic function. Atria Normal left atrium. Normal right atrium. Mitral Valve Normal mitral valve. Tricuspid Valve Normal tricuspid valve. Aortic Valve Peak aortic valve gradient 17 mmHg. Mean aortic valve gradient 9 mmHg. Bioprosthetic aortic valve. Pulmonic Valve Normal pulmonic valve. Great Vessels Normal aortic root. The pulmonary artery is normal size. Normal inferior vena cava. Pericardium/Pleural No pericardial effusion. Medication 22 gauge I.V. with prn adaptor inserted into right arm. Diluted definity 2ml given slow IV push to enhance endocardial definition. MMode/2D Measurements & Calculations LVIDd: 3.8 cm IVSd: 0.93 cm LVOT diam: 2.0 cm LVIDs: 2.8 cm LVPWd: 1.1 cm FS: 26.9 % LVOT area: 3.1 cm2 Ao root diam: 3.4 cm LAV(MOD-bp): 41.4 ml LVAd ap4: 29.0 cm2 LAV(MOD-bp) Indexed: 21.8 ml/m2 LVLd ap4: 8.0 cm LAV(MOD-sp2): 27.4 ml EDV(MOD-sp4): 84.5 ml LAV(MOD-sp4): 44.5 ml EDV(sp4-el): 89.5 ml LVAs ap4: 15.9 cm2 LVLs ap4: 7.3 cm ESV(MOD-sp4): 29.8 ml ESV(sp4-el): 29.4 ml EF(MOD-sp4): 64.7 % EF(sp4-el): 67.2 % SV(MOD-sp4): 54.7 ml SV(sp4-el): 60.1 ml LA A4 area: 18.9 cm2 SI(MOD-sp4): 28.8 ml/m2 LA dimension(2D): 3.7 cm TAPSE: 2.0 cm Doppler Measurements & Calculations MV E max benjie: 29.1 cm/sec Lat Peak E' Benjie: 6.7 cm/sec Med Peak E' Benjie: 8.2 cm/sec MV A max benjie: 119.8 cm/sec E/E' lat: 4.3 E/E' med: 3.6 MV E/A: 0.24 MV V2 max: 148.2 cm/sec MV P1/2t max benjie: 70.5 cm/sec Ao V2 max: 205.6 cm/sec MV max P.8 mmHg MV P1/2t: 44.5 msec Ao max P.9 mmHg MV V2 mean: 73.5 cm/sec MV dec slope: 464.0 cm/sec2 Ao V2 mean: 139.4 cm/sec MV mean P.8 mmHg Ao mean P.8 mmHg MV V2 VTI: 27.0 cm MVA(P1/2t): 4.9 cm2 Ao V2 VTI: 37.3 cm MVA(VTI): 1.8 cm2 AV (velocity ratio): 0.43 MASSIEL(I,D): 1.3 cm2 MASSIEL(V,D): 1.2 cm2 LV V1 max: 80.7 cm/sec SV(LVOT): 49.3 ml PA V2 max: 79.2 cm/sec LV V1 max P.6 mmHg LV V1 mean P.3 mmHg LV V1 mean: 54.2 cm/sec LV V1 VTI: 15.9 cm TR max benjie: 222.6 cm/sec TR max P.8 mmHg ECHO/Echo Complete W/ Contrast Interpretation Summary Normal LV size. Left ventricular systolic function is normal. The left ventricular ejection fraction is 55 %. Mean aortic valve gradient 9 mmHg. Bioprosthetic aortic valve. Contrast injection was performed. Ordering Physician: Toni Avelar Referring Physician: Toni Avelar Performed By: Juan C Pichardo RCS
[2024-01-23 15:34] LABS: Absolute Lymphocyte Count 2.92 X10^3/uL (0.83-4.51); Absolute Neutrophil Count 7.7 X10^3/uL (2.0-7.7); Basophil# 0.06 X10^3/uL; Basophil% 0.5 % (0-1); Eosinophil# 0.28 X10^3/uL; Eosinophils% 2.3 % (0-5); Hematocrit 43.2 % (37-47); Hemoglobin 14.4 g/dL (12.0-15.0); Lymphocyte # 2.92 X10^3/ul (0.83-4.51); Mean Corp Hgb Conc 33.3 g/dL (32-36); Mean Corpuscular Hgb 29.1 pg (27.0-32.0); Mean Corpuscular Volume 87.3 fL (81-99); Mean Platelet Vol. 9.2 fl (6.2-12.0); Monocyte# 1.13 X10^3/uL; Monocyte% 9.3 % (0-10); NRBC Flagged by Analyzer 0 % (0-5); Neutrophil # 7.72 X10^3/uL (2.7-7.7); Neutrophil % 63.3 % (47-70); Platelet Count 352 K/mm3 (150-450); RBC Distribution Width CV 12.9 % (11.6-14.6); RBC Distribution Width SD 40.6 fl (35.1-43.9); Red Blood Count 4.95 M/mm3 (4.2-5.4); White Blood Count 12.2 K/mm3 (4.4-11.0)
[2024-01-23 16:05] LABS: Vitamin D,25 Hydroxy 29.9 ng/mL
[2024-01-23 16:16] LABS: ALB/GLOB Ratio 0.9 RATIO (0.9-2.4); AST(SGOT) 15 U/L (15-37); Alanine Aminotransfer ALT/SGPT 29 U/L (13-56); Albumin, Serum 3.5 g/dL (3.2-5.0); Alkaline Phosphatase 101 U/L (45-117); Anion Gap 6 (5-15); BUN 17 mg/dL (7-18); BUN/Creat Ratio 23.1 RATIO (10-20); Calcium,Total 9.5 mg/dL (8.5-10.1); Chloride 102 mmol/L (98-107); Cholesterol 154 mg/dL (200); Creatinine, Serum 0.74 mg/dL (0.55-1.02); EST Glomerular Filtration Rate 82 mL/min (>60); Est Glom Filt Rate - Afr Amer 99 mL/min (>60); Globulin 3.9 g/dL (2.2-4.2); Glucose 110 mg/dL (74-106); High Density Lipoprotein 63 mg/dL; Potassium 4.2 mmol/L (3.5-5.1); Protein, Total 7.4 g/dL (6.4-8.2); Sodium Level 137 mmol/L (136-145); T4 Free Direct 1.17 ng/dL (0.76-1.46); Triglycerides 135 mg/dL; Very Low Density Lipoprotein 27 mg/dL (5-40)
[2024-01-23 16:21] LABS: Microalbumin:Creatinine Ratio 92.4 mg/g CRE (<30 mg/g CRE)
== END | disposition home or self-care (01) ==
LOC: CVS 12:53
PROVIDERS: Nurse Practitioner Family; PCP Physician Assistant; Referring Provider Nurse Practitioner Family; Visit Provider Nurse Practitioner Family
DX: Z95.2 Presence of prosthetic heart valve (principal); E11.65 Type 2 diabetes mellitus with hyperglycemia; Z79.4 Long term (current) use of insulin; I25.10 Atherosclerotic heart disease of native coronary artery without angina pectoris; I10 Essential (primary) hypertension; E03.9 Hypothyroidism, unspecified; E78.5 Hyperlipidemia, unspecified; E55.9 Vitamin D deficiency, unspecified
CPT/HCPCS: 36415; 80053; 80061; 82043; 82306; 82570; 84439; 84443; 85025; 93306; Q9957; A4216; C8929

== ENCOUNTER → 2024-03-05 | Outpatient (CLI) | payer MEDICARE, OTHER, SELFPAY ==
[2023-05-08 08:31] VITALS: BMI 34.0
[2024-02-19 14:09] VITALS: BMI 34.0
== END | disposition home or self-care (01) ==
LOC: SL 19:56
PROVIDERS: PCP Physician Assistant; Referring Provider Nurse Practitioner Family; Visit Provider Nurse Practitioner Family
DX: G47.10 Hypersomnia, unspecified (principal)
CPT/HCPCS: 95810